=== PATIENT | male | born 1965 | race Caucasian/White ===

== ENCOUNTER 2020-06-12 13:58 | Outpatient (REF) | payer BC, SELFPAY ==
--- NOTE | 2020-06-12 | XR_ITS ---
EXAMINATION: XR CHEST CLINICAL INFORMATION: Hypertension. COMPARISON: None TECHNIQUE: 2 views of the chest were obtained. FINDINGS: The lungs are well-expanded and clear. The heart size and pulmonary vascularity is normal. There is mild spondylosis of dorsal spine. No lytic process. IMPRESSION: Unremarkable chest exam.
== END 2020-06-12 13:59 | disposition home or self-care (01) ==
LOC: HO.HMGCX 13:58
PROVIDERS: PCP Internal Medicine; Visit Provider Internal Medicine
DX: I10 Essential (primary) hypertension (principal); K21.9 Gastro-esophageal reflux disease without esophagitis; F51.04 Psychophysiologic insomnia
CPT/HCPCS: 71046

== ENCOUNTER 2020-06-13 06:55 | Outpatient (REF) | payer BC, SELFPAY ==
[2020-06-13 11:19] LABS: MANUAL DIFF FLAG NO
[2020-06-13 11:37] LABS: Basophils Percent Auto 0.9 % (0-2); Eosinophils Absolute Auto 0.2 X10*3/uL (0.0-0.4); Eosinophils Percent Auto 4.1 % (0-4); Hematocrit 44.7 % (42-52); Hemoglobin 15.3 g/dl (14.0-18.0); Imm Gran Abs Auto 0.01 X10*3/uL (0.00-0.03); Imm Gran Pct Auto 0.2 % (0.0-0.4); Lymphocytes Absolute Auto 1.6 X10*3/uL (1.2-4.9); Mean Corpuscular HGB Conc 34.2 g/dl (31.0-36.0); Mean Corpuscular Hemoglobin 30.3 pg (27.0-33.0); Mean Corpuscular Volume 88.5 fL (80-98); Mean Platelet Volume 9.7 fL (9.4-12.4); Monocytes Absolute Auto 0.5 X10*3/uL (0.1-1.2); Monocytes Percent Auto 10.6 % (2-11); Neutrophils Absolute Auto 2.1 X10*3/uL (2.0-8.3); Neutrophils Percent Auto 48.2 % (45-73); Platelet Count 263 X10*3/uL (160-400); Red Blood Count 5.05 X10*6/uL (4.60-5.80); Red Cell Distribution Width 12.4 % (11.0-16.0); White Blood Count 4.4 X10*3/uL (4.8-10.8)
[2020-06-13 12:04] LABS: Alanine Aminotransferase 42 U/L (0-40); Albumin Level 4.4 g/dL (3.5-5.0); Alkaline Phosphatase 86 U/L (39-117); Anion Gap 13 (12-20); Aspartate Amino Transferase 30 U/L (5-37); Bilirubin Total 0.6 mg/dL (0.0-1.0); Blood Urea Nitrogen 25 mg/dL (9-16); C Reactive Protein 0.13 mg/dL (< or = 0.50); Calcium 9.3 mg/dL (8.4-10.2); Carbon Dioxide 25 mmol/L (22-29); Chloride 104 mmol/L (96-108); Cholesterol 205 mg/dL; Estimated Glomerular Filt Rate > 60; Glucose Random 98 mg/dL (60-115); HDL Cholesterol 51 mg/dL; LDL Cholesterol Calculated 127 mg/dl; Potassium 4.1 mmol/l (3.3-5.1); Sodium 138 mmol/L (135-145); Triglycerides 138 mg/dL
[2020-06-13 12:13] LABS: Thyroid Stimulating Hormone 2.93 mIU/mL (0.32-4.0)
[2020-06-13 14:08] LABS: Erythrocyte Sedimentation Rate 2 MM/HR (0-15)
== END 2020-06-13 06:56 | disposition home or self-care (01) ==
LOC: HO.HMGCLDS 06:55
PROVIDERS: PCP Internal Medicine; Visit Provider Internal Medicine
DX: K21.9 Gastro-esophageal reflux disease without esophagitis (principal); I10 Essential (primary) hypertension; F51.04 Psychophysiologic insomnia
CPT/HCPCS: 36415; 80053; 80061; 84443; 85025; 85652; 86140

== ENCOUNTER 2020-07-03 10:59 | Outpatient (REF) | payer BC, SELFPAY ==
[2020-07-03 11:48] LABS: COVID-19 Test Negative (Negative)
== END 2020-07-03 11:00 | disposition home or self-care (01) ==
LOC: HO.LAB 10:59
PROVIDERS: Visit Provider Internal Medicine
DX: Z20.828 Contact with and (suspected) exposure to other viral communicable diseases (principal)
CPT/HCPCS: 87635; C9803

== ENCOUNTER 2020-07-10 06:06 | Outpatient (REF) | payer BC, SELFPAY ==
[2020-07-10 06:32] LABS: COVID-19 Test Negative (Negative)
== END 2020-07-10 06:07 | disposition home or self-care (01) ==
LOC: HO.LAB 06:06
PROVIDERS: Visit Provider Internal Medicine
DX: Z20.828 Contact with and (suspected) exposure to other viral communicable diseases (principal)
CPT/HCPCS: 87635; C9803

== ENCOUNTER 2020-10-25 05:58 | Outpatient (REF) | payer BC, SELFPAY ==
[2020-10-25 11:07] LABS: MANUAL DIFF FLAG NO
[2020-10-25 11:22] LABS: Basophils Percent Auto 0.7 % (0-2); Eosinophils Absolute Auto 0.2 X10*3/uL (0.0-0.4); Eosinophils Percent Auto 4.2 % (0-4); Hematocrit 45.9 % (42-52); Hemoglobin 15.7 g/dl (14.0-18.0); Imm Gran Abs Auto 0.01 X10*3/uL (0.00-0.03); Imm Gran Pct Auto 0.2 % (0.0-0.4); Lymphocytes Absolute Auto 1.8 X10*3/uL (1.2-4.9); Lymphocytes Percent Auto 39.9 % (20-40); Mean Corpuscular HGB Conc 34.2 g/dl (31.0-36.0); Mean Corpuscular Hemoglobin 29.8 pg (27.0-33.0); Mean Corpuscular Volume 87.3 fL (80-98); Mean Platelet Volume 9.6 fL (9.4-12.4); Monocytes Absolute Auto 0.5 X10*3/uL (0.1-1.2); Monocytes Percent Auto 10.9 % (2-11); Neutrophils Percent Auto 44.1 % (45-73); Platelet Count 278 X10*3/uL (160-400); Red Blood Count 5.26 X10*6/uL (4.60-5.80); Red Cell Distribution Width 12.5 % (11.0-16.0); White Blood Count 4.5 X10*3/uL (4.8-10.8)
[2020-10-25 11:28] LABS: Glucose Urine UA NEG (NEG); Leukocyte Esterase Urine NEG (NEG); Nitrite Urine NEG (NEG); PH 5.5 (5.0-8.0); Specific Gravity - Urine 1.025 (1.005-1.025); Urine Blood NEG (NEG); Urine Ketones NEG (NEG); Urine Protein NEG (NEG-TRACE)
[2020-10-25 11:36] LABS: Appearance Urine CLEAR; Color Urine YELLOW
[2020-10-25 11:56] LABS: Alanine Aminotransferase 50 U/L (0-40); Albumin Level 4.6 g/dL (3.5-5.0); Alkaline Phosphatase 101 U/L (39-117); Anion Gap 13 (12-20); Aspartate Amino Transferase 38 U/L (5-37); Bilirubin Total 0.7 mg/dL (0.0-1.0); Blood Urea Nitrogen 22 mg/dL (9-16); Calcium 9.7 mg/dL (8.4-10.2); Carbon Dioxide 27 mmol/L (22-29); Chloride 100 mmol/L (96-108); Cholesterol 215 mg/dL; Estimated Glomerular Filt Rate > 60; Glucose Fasting 96 mg/dL (60-99); HDL Cholesterol 49 mg/dL; LDL Cholesterol Calculated 129 mg/dl; Sodium 136 mmol/L (135-145); Total Protein 7.2 g/dL (6.5-8.0); Triglycerides 189 mg/dL
[2020-10-25 12:20] LABS: Prostate Specific Antigen 1.24 ng/mL (<0.05-4.0); Thyroid Stimulating Hormone 3.49 uIU/mL (0.32-4.0); Vitamin D 25-OH Total 21.8 ng/mL (>30)
== END 2020-10-25 05:59 | disposition home or self-care (01) ==
LOC: HO.HMGCLDS 05:58
PROVIDERS: PCP Internal Medicine; Visit Provider Internal Medicine
DX: Z00.00 Encounter for general adult medical examination without abnormal findings (principal); Z12.5 Encounter for screening for malignant neoplasm of prostate; K21.9 Gastro-esophageal reflux disease without esophagitis; I10 Essential (primary) hypertension
CPT/HCPCS: 36415; 80053; 80061; 81003; 82306; 84153; 84443; 85025

== ENCOUNTER → 2021-02-05 08:23 | Outpatient (BNVA) | payer OTHER, SELFPAY | PROVIDERS: PCP Internal Medicine; Visit Provider Physician Assistant Medical | DX: S33.9XXA Sprain of unspecified parts of lumbar spine and pelvis, initial encounter (principal); X50.0XXA Overexertion from strenuous movement or load, initial encounter | CPT/HCPCS: 99203 ==

== ENCOUNTER → 2021-02-09 07:46 | Outpatient (BNVA) | payer OTHER, SELFPAY | PROVIDERS: PCP Internal Medicine; Visit Provider Physician Assistant Medical | DX: S33.9XXA Sprain of unspecified parts of lumbar spine and pelvis, initial encounter (principal); X58.XXXA Exposure to other specified factors, initial encounter | CPT/HCPCS: 99213 ==

== ENCOUNTER → 2021-02-15 08:01 | Outpatient (BNVA) | payer OTHER, SELFPAY | PROVIDERS: PCP Internal Medicine; Visit Provider Physician Assistant Medical | DX: S33.5XXA Sprain of ligaments of lumbar spine, initial encounter (principal); X58.XXXA Exposure to other specified factors, initial encounter | CPT/HCPCS: 72110; 99214 ==

== ENCOUNTER → 2021-03-12 15:15 | Outpatient (BNVA) | payer SELFPAY | PROVIDERS: PCP Internal Medicine | DX: Z76.89 Persons encountering health services in other specified circumstances (principal) ==

== ENCOUNTER 2021-11-07 06:56 | Outpatient (REF) | payer BC, SELFPAY ==
[2021-11-07 11:18] LABS: MANUAL DIFF FLAG NO
[2021-11-07 11:42] LABS: Basophils Percent Auto 0.6 % (0-2); Eosinophils Absolute Auto 0.2 X10*3/uL (0.0-0.4); Eosinophils Percent Auto 4.1 % (0-4); Hemoglobin 15.4 g/dl (14.0-18.0); Imm Gran Abs Auto 0.01 X10*3/uL (0.00-0.03); Imm Gran Pct Auto 0.2 % (0.0-0.4); Lymphocytes Absolute Auto 1.6 X10*3/uL (1.2-4.9); Lymphocytes Percent Auto 34.7 % (20-40); Mean Corpuscular HGB Conc 34.2 g/dl (31.0-36.0); Mean Corpuscular Hemoglobin 29.8 pg (27.0-33.0); Mean Platelet Volume 9.1 fL (9.4-12.4); Monocytes Absolute Auto 0.5 X10*3/uL (0.1-1.2); Monocytes Percent Auto 11.2 % (2-11); Neutrophils Absolute Auto 2.3 x10*3/uL (2.0-8.3); Neutrophils Percent Auto 49.2 % (45-73); Platelet Count 336 X10*3/uL (160-400); Red Blood Count 5.17 X10*6/uL (4.60-5.80); Red Cell Distribution Width 12.6 % (11.0-16.0); White Blood Count 4.6 X10*3/uL (4.8-10.8)
[2021-11-07 12:10] LABS: Alanine Aminotransferase 52 U/L (0-40); Albumin Level 4.4 g/dL (3.5-5.0); Alkaline Phosphatase 92 U/L (39-117); Anion Gap 12 (12-20); Aspartate Amino Transferase 33 U/L (5-37); Bilirubin Total 0.5 mg/dL (0.0-1.0); Blood Urea Nitrogen 12 mg/dL (9-16); Calcium 10.2 mg/dL (8.4-10.2); Carbon Dioxide 27 mmol/L (22-29); Chloride 104 mmol/L (96-108); Cholesterol 195 mg/dL; Estimated Glomerular Filt Rate > 60; Glucose Fasting 104 mg/dL (60-99); HDL Cholesterol 46 mg/dL; LDL Cholesterol Calculated 122 mg/dl; Potassium 4.3 mmol/L (3.3-5.1); Sodium 139 mmol/L (135-145); Total Protein 7.1 g/dL (6.5-8.0); Triglycerides 138 mg/dL
[2021-11-07 12:19] LABS: PSA,Total (Free>4and<10) 1.47 ng/mL (0.00-4.00); Thyroid Stimulating Hormone 1.94 uIU/mL (0.32-4.0); Vitamin D 25-OH Total 20.6 ng/mL (>30)
== END 2021-11-07 06:57 | disposition home or self-care (01) ==
LOC: HO.HMGCLDS 06:56
PROVIDERS: Visit Provider Internal Medicine
DX: Z00.00 Encounter for general adult medical examination without abnormal findings (principal); Z12.5 Encounter for screening for malignant neoplasm of prostate; I10 Essential (primary) hypertension; K21.9 Gastro-esophageal reflux disease without esophagitis; F51.04 Psychophysiologic insomnia
CPT/HCPCS: 36415; 80053; 80061; 82306; 84153; 84443; 85025

== ENCOUNTER 2022-01-30 11:35 | Outpatient (REF) | payer BC, SELFPAY ==
[2022-01-30 14:00] LABS: MANUAL DIFF FLAG NO
[2022-01-30 14:25] LABS: Basophils Percent Auto 0.2 % (0-2); Eosinophils Absolute Auto 0.2 X10*3/uL (0.0-0.4); Eosinophils Percent Auto 2.4 % (0-4); Hematocrit 43.7 % (42.0-52.0); Hemoglobin 15.5 g/dl (14.0-18.0); Imm Gran Abs Auto 0.01 X10*3/uL (0.00-0.03); Imm Gran Pct Auto 0.2 % (0.0-0.4); Lymphocytes Absolute Auto 1.4 X10*3/uL (1.2-4.9); Mean Corpuscular HGB Conc 35.5 g/dl (31.0-36.0); Mean Corpuscular Hemoglobin 30.2 pg (27.0-33.0); Mean Corpuscular Volume 85.2 fL (80.0-98.0); Mean Platelet Volume 9.4 fL (9.4-12.4); Monocytes Absolute Auto 0.8 X10*3/uL (0.1-1.2); Monocytes Percent Auto 12.2 % (2-11); Neutrophils Absolute Auto 3.9 x10*3/uL (2.0-8.3); Platelet Count 292 X10*3/uL (160-400); Red Blood Count 5.13 X10*6/uL (4.60-5.80); Red Cell Distribution Width 12.4 % (11.0-16.0); White Blood Count 6.2 X10*3/uL (4.8-10.8)
[2022-01-30 14:28] LABS: Alanine Aminotransferase 40 U/L (0-40); Albumin Level 4.4 g/dL (3.5-5.0); Alkaline Phosphatase 109 U/L (39-117); Anion Gap 17 (12-20); Aspartate Amino Transferase 31 U/L (5-37); Bilirubin Total 0.8 mg/dL (0.0-1.0); Blood Urea Nitrogen 13 mg/dL (9-16); C Reactive Protein 9.56 mg/dL (< or = 0.50); Calcium 9.3 mg/dL (8.4-10.2); Carbon Dioxide 25 mmol/L (22-29); Chloride 99 mmol/L (96-108); Estimated Glomerular Filt Rate > 60; Glucose Random 88 mg/dL (60-115); Potassium 4.5 mmol/L (3.3-5.1); Sodium 136 mmol/L (135-145); Total Protein 7.2 g/dL (6.5-8.0)
[2022-01-30 14:49] LABS: Thyroid Stimulating Hormone 5.62 uIU/mL (0.32-4.0)
[2022-01-30 15:02] LABS: Erythrocyte Sedimentation Rate 16 MM/HR (0-15)
== END 2022-01-30 11:36 | disposition home or self-care (01) ==
LOC: HO.HMGCLDS 11:35
PROVIDERS: PCP Internal Medicine; Visit Provider Internal Medicine
DX: K52.9 Noninfective gastroenteritis and colitis, unspecified (principal)
CPT/HCPCS: 36415; 80053; 84443; 85025; 85652; 86140

== ENCOUNTER 2022-11-15 06:19 | Outpatient (REF) | payer BC, SELFPAY ==
[2022-11-15 11:13] LABS: MANUAL DIFF FLAG NO
[2022-11-15 11:23] LABS: Eosinophils Absolute Auto 0.2 X10*3/uL (0.0-0.4); Eosinophils Percent Auto 4.4 % (0-4); Hematocrit 44.7 % (42.0-52.0); Hemoglobin 15.5 g/dl (14.0-18.0); Imm Gran Abs Auto 0.01 X10*3/uL (0.00-0.03); Imm Gran Pct Auto 0.3 % (0.0-0.4); Lymphocytes Absolute Auto 1.5 X10*3/uL (1.2-4.9); Lymphocytes Percent Auto 38.1 % (20-40); Mean Corpuscular HGB Conc 34.7 g/dl (31.0-36.0); Mean Corpuscular Hemoglobin 30.3 pg (27.0-33.0); Mean Corpuscular Volume 87.3 fL (80.0-98.0); Monocytes Absolute Auto 0.5 X10*3/uL (0.1-1.2); Monocytes Percent Auto 11.6 % (2-11); Neutrophils Absolute Auto 1.7 x10*3/uL (2.0-8.3); Neutrophils Percent Auto 44.6 % (45-73); Platelet Count 254 X10*3/uL (160-400); Red Blood Count 5.12 X10*6/uL (4.60-5.80); Red Cell Distribution Width 12.8 % (11.0-16.0); White Blood Count 3.9 X10*3/uL (4.8-10.8)
[2022-11-15 11:39] LABS: Appearance Urine Turbid; Color Urine Yellow; Glucose Urine UA Negative (Negative); Leukocyte Esterase Urine Negative (Negative); Nitrite Urine Negative (Negative); PH 5.5 (5.0-9.0); Specific Gravity - Urine 1.025 (1.005-1.025); Urine Blood Negative (Negative); Urine Ketones Negative (Negative); Urine Protein Trace mg/dL (Neg-Trace)
[2022-11-15 11:45] LABS: Bacteria Urine None Seen (None Seen); Hyaline Casts Urine 0-2 /LPF (0-2); RBC Urine 0-2 /HPF (0-2); Squamous Epithelial Cell Urine 0-2 /HPF (0-2); WBC Urine 0-5 /HPF (0-5)
[2022-11-15 12:02] LABS: Erythrocyte Sedimentation Rate 2 MM/HR (0-15)
[2022-11-15 12:05] LABS: Alanine Aminotransferase 62 U/L (0-40); Albumin Level 4.3 g/dL (3.5-5.0); Alkaline Phosphatase 89 U/L (39-117); Anion Gap 13 (12-20); Aspartate Amino Transferase 38 U/L (5-37); Blood Urea Nitrogen 19 mg/dL (9-16); Calcium 9.2 mg/dL (8.4-10.2); Carbon Dioxide 25 mmol/L (22-29); Chloride 106 mmol/L (96-108); Cholesterol 229 mg/dL; Estimated Glomerular Filt Rate > 60; Glucose Fasting 104 mg/dL (60-99); HDL Cholesterol 48 mg/dL; LDL Cholesterol Calculated 156 mg/dl; Sodium 140 mmol/L (135-145); Thyroid Stimulating Hormone 3.24 uIU/mL (0.32-4.0); Total Protein 6.6 g/dL (6.5-8.0); Triglycerides 129 mg/dL; Vitamin D 25-OH Total 23.1 ng/mL (>30)
== END 2022-11-15 06:20 | disposition home or self-care (01) ==
LOC: HO.HMGCLDS 06:19
PROVIDERS: PCP Internal Medicine; Visit Provider Internal Medicine
DX: Z00.00 Encounter for general adult medical examination without abnormal findings (principal); I10 Essential (primary) hypertension; K21.9 Gastro-esophageal reflux disease without esophagitis; F51.04 Psychophysiologic insomnia; E55.9 Vitamin D deficiency, unspecified
CPT/HCPCS: 36415; 80053; 80061; 81001; 82306; 84443; 85025; 85652; 86140

== ENCOUNTER 2023-07-22 13:26 | Outpatient (REF) | payer BC, SELFPAY ==
[2023-07-22 15:58] LABS: Appearance Urine Clear; Color Urine Yellow; Glucose Urine UA Negative (Negative); Leukocyte Esterase Urine Negative (Negative); Nitrite Urine Negative (Negative); PH 6.5 (5.0-9.0); UMIC TRIGGER UA YES; Urine Blood Moderate (2+) (Negative); Urine Ketones Negative (Negative); Urine Protein Negative (Neg-Trace)
[2023-07-22 16:01] LABS: Bacteria Urine None Seen (None Seen); Hyaline Casts Urine 0-2 /LPF (0-2); RBC Urine >20 /HPF (0-2); Squamous Epithelial Cell Urine 0-2 /HPF (0-2); WBC Urine 0-5 /HPF (0-5)
== END 2023-07-22 13:27 | disposition home or self-care (01) ==
LOC: HO.HMGCLDS 13:26
PROVIDERS: PCP Internal Medicine; Visit Provider Internal Medicine
DX: R31.0 Gross hematuria (principal)
CPT/HCPCS: 81001; 87086

== ENCOUNTER 2023-07-24 09:24 | Emergency (ER) | payer BC, SELFPAY ==
--- NOTE | ~2023-07-24 | CT_ITS ---
EXAMINATION: CT ABDOMEN AND PELVIS WITHOUT CONTRAST CLINICAL INFORMATION: Flank pain COMPARISON: None available TECHNIQUE: Multidetector volumetric imaging was performed from the superior aspect of the liver through the pubic symphysis. Sagittal and coronal reformatted images were obtained on the technologist's workstation. This CT examination was performed using dose optimization techniques as appropriate, variously including the following: *Automated exposure control *Adjustment of mA and/or kV according to patient size (this includes techniques or standardized protocols for targeted exams where dose is matched to indication/reason for exam; i.e. extremities or head) *Use of iterative reconstruction technique DLP: 675 mGy-cm FINDINGS: LUNG BASES: Minimal subpleural linear atelectasis is evident at the left base. LIVER, GALLBLADDER, AND BILIARY TREE: The liver is normal in size, shape, and attenuation. No focal hepatic lesion or biliary ductal dilatation is present. The gallbladder is unremarkable with no evidence of radiopaque gallstones, gallbladder wall thickening, or obvious pericholecystic inflammatory changes. PANCREAS: Unremarkable. SPLEEN: Unremarkable. ADRENAL GLANDS: Unremarkable. KIDNEYS AND URETERS: Mild left hydroureter process is evident to the level of a 9 x 4 mm ovoid calculus in the left proximal ureter, just below the left ureteropelvic junction. An ovoid 4 x 3 mm calculus is evident within the left renal lower pole collecting system. There is a 2.8 cm round low density mass in the upper pole the right kidney, which appears to contain some internal structure on this unenhanced study and does does not definitively meet criteria for a simple cyst. BLADDER: Unremarkable. GASTROINTESTINAL TRACT: Considerable diverticulosis is noted in the sigmoid, but there is no evidence of diverticulitis. The small bowel and appendix images normally. There is a small sliding hiatal hernia. ABDOMINAL WALL: Small fat-containing umbilical hernia. LYMPH NODES: Normal. VASCULAR: Unremarkable. PELVIC VISCERA: The prostate gland is mildly enlarged, indenting the bladder base. OSSEOUS STRUCTURES: Degenerative disc disease is present at L5-S1. CT/CT abdomen pelvis wo IV con IMPRESSION: 1. Mild left hydronephrosis to the level of a 9 x 4 mm left proximal ureteral calculus. 2. Additional nonobstructing 4 x 3 mm left renal lower pole calculus. 3. Right renal upper pole low density lesion, not definitely a simple cyst. Suggest correlation with renal ultrasound for better assessment of the internal architecture. Fleischner guidelines were followed.
[2023-07-24 09:30] VITALS: BP 155/100; BP 156/88; PULSE 60; PULSE 63; RESP 16; TEMP 36.6; O2SAT 94; O2SAT 98; BMI 32.3
[2023-07-24 09:45] LABS: MANUAL DIFF FLAG NO
[2023-07-24 09:46] LABS: Basophils Percent Auto 0.5 % (0-2); Eosinophils Absolute Auto 0.1 X10*3/uL (0.0-0.4); Eosinophils Percent Auto 2.2 % (0-4); Hematocrit 43.8 % (42.0-52.0); Hemoglobin 15.5 g/dl (14.0-18.0); Imm Gran Abs Auto 0.01 X10*3/uL (0.00-0.03); Imm Gran Pct Auto 0.2 % (0.0-0.4); Lymphocytes Absolute Auto 1.7 X10*3/uL (1.2-4.9); Lymphocytes Percent Auto 31.5 % (20-40); Mean Corpuscular HGB Conc 35.4 g/dl (31.0-36.0); Mean Corpuscular Hemoglobin 30.3 pg (27.0-33.0); Mean Corpuscular Volume 85.5 fL (80.0-98.0); Mean Platelet Volume 9.2 fL (9.4-12.4); Monocytes Absolute Auto 0.6 X10*3/uL (0.1-1.2); Monocytes Percent Auto 10.1 % (2-11); Neutrophils Absolute Auto 3.1 x10*3/uL (2.0-8.3); Neutrophils Percent Auto 55.5 % (45-73); Platelet Count 269 X10*3/uL (160-400); Red Blood Count 5.12 X10*6/uL (4.60-5.80); Red Cell Distribution Width 12.5 % (11.0-16.0); White Blood Count 5.5 X10*3/uL (4.8-10.8)
--- NOTE | 2023-07-24 10:05 | ED_ITS ---
HPI - Male Genitourinary General Chief complaint: Urogenital-Male Stated complaint: Blood in urine Time Seen by Provider: 07/24/23 10:05 Source: patient and EMS Mode of arrival: EMS Limitations: no limitations History of Present Illness HPI Narrative: Patient is a 57 year old assigned male at with no reported medical history presenting to the emergency department today with left flank pain. Patient states that over the last 5 days, he has had left sided flank pain with nausea and tea colored urine. Patient denies any dizziness, lightheadedness, abdominal pain, vomiting, fever, chills, blurry vision, double vision, loss of vision, chest pain, difficulty breathing, shortness of breath, back pain, night sweats, pain with urination, increased urinary frequency, increased urinary urgency, blood in his urine or stool, syncope or a near syncopal episode, recent trauma or falls, bowel incontinence, bladder incontinence, bowel retention, bladder retention, or any other complaints at this time. Onset (ago): day(s) (5) Severity: mild Severity scale (1-10): 4 Quality: aching Relieving factors: none Exacerbating factors: none Related Data Previous Rx's Medication Instructions Recorded naproxen 500 mg tablet 500 mg PO BID 7 days #14 tabs 07/24/23 ondansetron 4 mg disintegrating 4 mg PO Q8H 3 days #9 tabs 07/24/23 tablet tamsulosin 0.4 mg capsule 0.4 mg PO DAILY #7 caps 07/24/23 Allergies Allergy/AdvReac Type Severity Reaction Status Date / Time No Known Allergies Allergy Unverified 05/11/20 14:45 [No Known Allergies*] Review of Systems 2 Constitutional: Constitutional: Reports no additional constitutional complaints, Denies chills, Denies fever(s) and Denies night sweats Eyes: Eyes: Reports no additional eye complaints, Denies blurry vision, Denies change in vision, Denies diplopia, Denies eye discharge, Denies loss of vision and Denies eye pain ENT: Denies dizziness Cardiovascular: Cardiovascular: Reports no additional cardiovascular complaints, Denies chest pain, Denies lightheadedness, Denies Loss of Consciousness and Denies dyspnea Respiratory: Respiratory: Reports no additional respiratory complaints and Denies dyspnea Gastrointestinal: Gastrointestinal: Reports no additional gastrointestinal complaints, Denies abdominal pain, Denies melena, Denies hematochezia, Denies change in bowel habits, Denies change in stool character, Reports nausea and Denies vomiting Genitourinary: Genitourinary: Reports no additional male genitourinary complaints, Denies hematuria, Denies oliguria, Denies difficulty urinating, Denies dysuria, Denies urinary frequency, Denies urinary hesitancy, Denies urinary incontinence and Denies urinary urgency Comments: left flank pain Musculoskeletal: Musculoskeletal: Reports no additional musculoskeletal complaints, Denies numbness and Denies tingling Neurologic: Denies dizziness, Denies loss of vision, Denies numbness and Denies tingling Psychiatric: Psychiatric: Reports no additional psychiatric complaints Endocrine: Endocrine: Reports no additional endocrine complaints Hematologic/Lymphatic: Hematologic/Lymphatic: Reports no additional hematologic/lymphatic complaints Allergic/Immunologic: Allergic/Immunologic: Reports no additional allergic/immunologic complaints PMFSH Past Medical History Attestation statement: The following information was validated with the patient. Source: old records reviewed and nursing notes reviewed Medical History HTN (hypertension) Physical Exam 2 Vital Signs: Vital Signs: Last Vital Signs Temp 97.6 F 07/24/23 12:03 Pulse 70 07/24/23 12:03 Resp 14 07/24/23 12:03 BP 129/81 07/24/23 12:03 Pulse Ox 99 07/24/23 12:03 O2 Del Method Room Air 07/24/23 12:03 BMI result Body Mass Index 32.3 Const: General: cooperative, no acute distress, alert and awake Nutritional Appearance: well nourished Orientation/consciousness: patient oriented x3 Limitations: no limitations HEENT: Head: Yes normal to inspection and Yes atraumatic Ears: hearing grossly normal bilaterally and external ears normal General nose exam: Normal external nose present, no nasal discharge noted and no epistaxis Face and sinus: Yes normal facial exam, No abrasion and No laceration Mouth: Normal oral and palatal mucosa present, no drooling and no muffled voice Eyes: General: appearance normal, both eyes and all related structures P eriorbital: periorbital findings normal Eyelids: Yes eyelids normal C onjunctivae: conjunctivae normal Pupils: Equal, round and reactive pupils present EOM: EOMs intact bilaterally Neck: Neck: Yes normal visual inspection, Yes full ROM and Yes no lymphadenopathy Chest: Chest palpation & inspection: normal inspection of the chest Resp: Effort & Inspection: normal respiratory effort and able to speak in complete sentences GI: Inspection: Yes normal to inspection : General: Yes CVA tenderness on the left Back/Spine/Pelvis: Back: CVA tenderness Neuro: General: patient oriented x3 and moves all extremities Cranial nerves: Yes Equal, round and reactive pupils present Cognition (Neuro): n ormal cognition Motor exam (neuro): 5/5 motor strength present throughout Sensory Exam: Normal double simultaneous stimulation for sensation C oordination: [id number] test normal Extrem: General: Yes normal to inspection, Yes full ROM and Yes capillary refill normal Psych: Appearance: grossly normal Mental Status: mental status grossly normal Affect: normal affect Attitude: cooperative Thought process: N ormal thought process present Thought content: Normal thought content present Insight: Good insight present (Psych) Medications Administered Discontinued Medications Generic Name Dose Route Start Last Admin Trade Name Freq PRN Reason Stop Dose Admin Sodium Chloride 1,000 mls @ 999 mls/hr 07/24/23 10:15 07/24/23 11:14 Ns IV 07/24/23 11:15 Infused .Q1H1M MEG Infusion Medical Decision Making Medical Decision Making MDM Narrative: Patient is a 57 year old assigned male at with no reported medical history presenting to the emergency department today with left flank pain. Patient's physical exam was as noted in the physical exam portion of this note. Patient's blood work was unremarkable. Patient's urine showed no acute process. Patient's CT abdomen/pelvis showed mild left hydronephrosis secondary to a 9 x 4mm left proximal ureteral calculus and a right renal upper pole low density lesion that needs further out patient imaging. I spoke to the urologist who recommended the patient discharge and follow up in the office tomorrow at 10:00 am. I explained my physical exam findings as well as all test results to the patient. I answered all questions asked by the patient. I stressed the importance of the patient taking his medication as prescribed. I stressed the importance of the patient following up with his primary care provider and at the urologist office tomorrow at 10:00 am. I stressed the importance of the patient returning to the emergency department immediately if his symptoms were to worsen or if he were to develop any dizziness, shortness of breath, difficulty breathing, chest pain, blurry vision, loss of vision, nausea, vomiting, abdominal pain, fever, chills, back pain, or any other complaints. Patient verbalized agreement and understanding with this treatment plan and discharge. Differential Diagnosis Differential Diagnoses: The differential diagnosis associated with the presentation includes Kidney stone UTI Flank pain Admission/Observation Consideration of admission/observation: Escalation of care including admission/observation considered Patient would have been admitted to the hospital had his work up had any findings where hospital admission was appropriate and his clinical presentation warranted hospital admission. Consult Healthcare Provider Management of the patient was discussed with: Storage Consultant (spoke to the urologist as noted in the MDM Rationale portion of this note.) Lab Data [facility] Lab Attestation statement: I reviewed the patient's lab results. My interpretation of these studies and their corresponding values is that they are grossly normal. 07/24/23 09:38 07/24/23 09:38 Labs: Lab Results 07/24/23 07/24/23 07/24/23 Range/Units 09:38 10:42 11:33 WBC 5.5 (4.8-10.8) X10*3/uL RBC 5.12 (4.60-5.80) X10*6/uL Hgb 15.5 (14.0-18.0) g/dl Hct 43.8 (42.0-52.0) % MCV 85.5 (80.0-98.0) fL MCH 30.3 (27.0-33.0) pg MCHC 35.4 (31.0-36.0) g/dl RDW 12.5 (11.0-16.0) % Plt Count 269 (160-400) X10*3/uL MPV 9.2 L (9.4-12.4) fL Immature Gran % (Auto) 0.2 (0.0-0.4) % Neut % (Auto) 55.5 (45-73) % Lymph % (Auto) 31.5 (20-40) % [place] % (Auto) 10.1 (2-11) % Eos % (Auto) 2.2 (0-4) % Baso % (Auto) 0.5 (0-2) % Lymph # (Auto) 1.7 (1.2-4.9) X10*3/uL [place] # (Auto) 0.6 (0.1-1.2) X10*3/uL Eos # (Auto) 0.1 (0.0-0.4) X10*3/uL Baso # (Auto) 0.0 (0.0-0.2) X10*3/uL Abs Immat Gran (auto) 0.01 (0.00-0.03) X10*3/uL Absolute Neuts (auto) 3.1 (2.0-8.3) x10*3/uL Absolute Nucleated RBC 0.000 (0.0-0.012) X10*3/uL Nucleated RBC % (auto) 0.0 (0.0-0.2) /100WBC Sodium 135 (135-145) mmol/L Potassium 4.1 (3.3-5.1) mmol/L Chloride 105 (96-108) mmol/L Carbon Dioxide 24 (22-29) mmol/L Anion Gap 10 L (12-20) BUN 19 H (9-16) mg/dL Creatinine 0.88 (0.5-1.4) mg/dL Estim Creat Clear Calc 99.6 Estimated GFR > 60 Random Glucose 155 H (60-115) mg/dL Calcium 9.5 (8.4-10.2) mg/dL Magnesium 2.0 (1.6-2.6) mg/dL Total Bilirubin 0.8 (0.0-1.0) mg/dL AST 34 (5-37) U/L ALT 44 H (0-40) U/L Alkaline Phosphatase 98 (39-117) U/L Total Protein 7.2 (6.5-8.0) g/dL Albumin 4.4 (3.5-5.0) g/dL Urine Color Yellow Urine Appearance Cloudy Urine pH 5.5 (5.0-9.0) Ur Specific [place] 1.020 (1.005-1.025) Urine Protein 30 (1+) H (Neg-Trace) mg/dL Urine Glucose (UA) Negative (Negative) mg/dL Urine Ketones Trace (Negative) mg/dL Urine Blood Large (3+) H (Negative) Urine Nitrite Negative (Negative) Ur Leukocyte Esterase Trace H (Negative) Urine RBC >20 H (0-2) /HPF Urine WBC 0-5 (0-5) /HPF Ur Squamous Epith Cells 0-2 (0-2) /HPF Urine Bacteria None Seen (None Seen) Hyaline Casts 0-2 (0-2) /LPF Influenza Type A (PCR) NEGATIVE (Negative) Influenza Type B (PCR) NEGATIVE (Negative) RSV RNA Qual (PCR) NEGATIVE (Negative) SARS-CoV-2 RNA (RT-PCR) NEGATIVE (Negative) Independent Interpretation I performed an independent interpretation of an: CT Scan Interpretation: My interpretation is in agreement with the radiologist's impression of this imaging study. - EXAMINATION: CT ABDOMEN AND PELVIS WITHOUT CONTRAST CLINICAL INFORMATION: Flank pain COMPARISON: None available TECHNIQUE: Multidetector volumetric imaging was performed from the superior aspect of the liver through the pubic symphysis. Sagittal and coronal reformatted images were obtained on the technologist's workstation. This CT examination was performed using dose optimization techniques as appropriate, variously including the following: *Automated exposure control *Adjustment of mA and/or kV according to patient size (this includes techniques or standardized protocols for targeted exams where dose is matched to indication/reason for exam; i.e. extremities or head) *Use of iterative reconstruction technique DLP: 675 mGy-cm FINDINGS: LUNG BASES: Minimal subpleural linear atelectasis is evident at the left base. LIVER, GALLBLADDER, AND BILIARY TREE: The liver is normal in size, shape, and attenuation. No focal hepatic lesion or biliary ductal dilatation is present. The gallbladder is unremarkable with no evidence of radiopaque gallstones, gallbladder wall thickening, or obvious pericholecystic inflammatory changes. PANCREAS: Unremarkable. SPLEEN: Unremarkable. ADRENAL GLANDS: Unremarkable. KIDNEYS AND URETERS: Mild left hydroureter process is evident to the level of a 9 x 4 mm ovoid calculus in the left proximal ureter, just below the left ureteropelvic junction. An ovoid 4 x 3 mm calculus is evident within the left renal lower pole collecting system. There is a 2.8 cm round low density mass in the upper pole the right kidney, which appears to contain some internal structure on this unenhanced study and does does not definitively meet criteria for a simple cyst. BLADDER: Unremarkable. GASTROINTESTINAL TRACT: Considerable diverticulosis is noted in the sigmoid, but there is no evidence of diverticulitis. The small bowel and appendix images normally. There is a small sliding hiatal hernia. ABDOMINAL WALL: Small fat-containing umbilical hernia. LYMPH NODES: Normal. VASCULAR: Unremarkable. PELVIC VISCERA: The prostate gland is mildly enlarged, indenting the bladder base. OSSEOUS STRUCTURES: Degenerative disc disease is present at L5-S1. CT/CT abdomen pelvis wo IV con IMPRESSION: 1. Mild left hydronephrosis to the level of a 9 x 4 mm left proximal ureteral calculus. 2. Additional nonobstructing 4 x 3 mm left renal lower pole calculus. 3. Right renal upper pole low density lesion, not definitely a simple cyst. Suggest correlation with renal ultrasound for better assessment of the internal architecture. Fleischner guidelines were followed. Dictated By: Yunior Delvalle MD Signed By: Electronically signed by Yunior Delvalle MD 07/24/23 2095 Radiology Impression Discussion of test interpretation with radiology: I have reviewed the radiologist's reading. Independent Historian Clinical information obtained from an independent historian. History obtained from or confirmed by: EMS (EMS provided additional history and confirmed the history provided by the patient.) Prescription Management I considered prescription management with: Pain Medication (patient prescribed pain medication.) Critical Care Time Critical Care Time Critical Care Time: Yes Total Critical Care Time: 55 Attestation: I spent 55 minutes of Critical Care Time with this patient. This does not include time spent on separately reported billable procedures. Discharge Plan Discharge Clinical Impression: Kidney calculi Patient Disposition: Home, Self-Care Instructions: Kidney Stones (ED) Additional Instructions: Your CT scan showed a 9 x 4 mm left kidney stone. Additionally, there is a low density lesion in the right upper kidney that needs additional imaging. This can be done outpatient. Follow up with your primary care provider. Follow up with the Urologist tomorrow at 10:00 AM. Return to the emergency department immediately if your symptoms worsen or if you develop any dizziness, shortness of breath, difficulty breathing, chest pain, blurry vision, loss of vision, nausea, vomiting, abdominal pain, fever, chills, back pain, or any other complaints. Prescriptions: New tamsulosin 0.4 mg capsule 0.4 mg PO DAILY Qty: 7 0RF ondansetron 4 mg tablet,disintegrating 4 mg PO Q8H 3 Days Qty: 9 0RF naproxen 500 mg tablet 500 mg PO BID 7 Days Qty: 14 0RF Referrals: [facility] [Provider Group] (Call to establish and follow up with a urologist. You are scheduled for a 10:[address] Bertrand on 07/25/2023. Please call the office to confirm this appointment.) Cortes Hernandez DO [Primary Care Provider] - Interventions: ED Discharge Assessment Last Done: 07/24/23 12:49 Discharge Date/Time: 07/24/23 12:49 Print Language: [place]
[2023-07-24 10:06] LABS: Alanine Aminotransferase 44 U/L (0-40); Albumin Level 4.4 g/dL (3.5-5.0); Alkaline Phosphatase 98 U/L (39-117); Anion Gap 10 (12-20); Aspartate Amino Transferase 34 U/L (5-37); Bilirubin Total 0.8 mg/dL (0.0-1.0); Blood Urea Nitrogen 19 mg/dL (9-16); Calcium 9.5 mg/dL (8.4-10.2); Carbon Dioxide 24 mmol/L (22-29); Chloride 105 mmol/L (96-108); Creatinine Clr Calc Pharmacy 99.6; Estimated Glomerular Filt Rate > 60; Glucose Random 155 mg/dL (60-115); Potassium 4.1 mmol/L (3.3-5.1); Sodium 135 mmol/L (135-145); Total Protein 7.2 g/dL (6.5-8.0)
[2023-07-24] MEDS: 0.9 % Sodium Chloride 1,000 ML 999 ML IV (10:17)
[2023-07-24 11:32] LABS: Influenza A PCR NEGATIVE (Negative); Influenza B PCR NEGATIVE (Negative); Resp Syncy Virus RNA Qual PCR NEGATIVE (Negative); SARS COV2 PCR INHOUSE NEGATIVE (Negative)
[2023-07-24 11:46] LABS: Appearance Urine Cloudy; Color Urine Yellow; Glucose Urine UA Negative (Negative); Leukocyte Esterase Urine Trace (Negative); Nitrite Urine Negative (Negative); PH 5.5 (5.0-9.0); UMIC TRIGGER UACC YES; Urine Blood Large (3+) (Negative); Urine Ketones Trace mg/dL (Negative); Urine Protein 30 (1+) mg/dL (Neg-Trace)
[2023-07-24 11:53] LABS: Bacteria Urine None Seen (None Seen); Hyaline Casts Urine 0-2 /LPF (0-2); RBC Urine >20 /HPF (0-2); Squamous Epithelial Cell Urine 0-2 /HPF (0-2); WBC Urine 0-5 /HPF (0-5)
[2023-07-24 12:03] VITALS: BP 129/81; PULSE 70; RESP 14; TEMP 36.4; O2SAT 99
== END 2023-07-24 12:49 | disposition home or self-care (01) ==
PROVIDERS: Physician Assistant Medical; Emergency Provider Emergency Medicine Emergency Medical Services; PCP Internal Medicine
DX: N20.0 Calculus of kidney (principal); R31.9 Hematuria, unspecified; R10.9 Unspecified abdominal pain; Z20.822 Contact with and (suspected) exposure to COVID-19; Z20.828 Contact with and (suspected) exposure to other viral communicable diseases; Z79.899 Other long term (current) drug therapy
CPT/HCPCS: 0241U; 36415; 74176; 80053; 81001; 83735; 85025; 96360; 99284

== ENCOUNTER 2023-07-25 09:45 | Outpatient (AMB) | payer BC, SELFPAY ==
--- NOTE | 2023-07-25 10:09 | A.OFFVIS_ITS ---
Intake Intake Visit Reasons: ED-Nephrolithiasis Intake Note: NEW Patient presents today to established treatment for Nephrolithiasis: Patient was in the ED yesterday. Meds- Naproxen & Tamsulosin Allergies to Antibiotic- No Known Allergies Blood Thinner- None Production Superintendent Required: No Accompanied by: Significant Other Allergies No Known Allergies [No Known Allergies*] Allergy (Verified 07/25/23 10:31) Medication List - Last Reconciled 07/25/23 by Taryn Bertrand MD hydromorphone (Dilaudid) 2 mg PO Q6H PRN naproxen 500 mg PO BID 7 days ondansetron 4 mg PO Q8H 3 days tamsulosin 0.4 mg PO DAILY HPI HPI Comments History of Present Illness Details Ede is a 57-year-old male who presents today to the office for a follow-up . 07/25/2023? He was seen ED on 07/24/2023 with left flank pain.? I reviewed the CAT scan results from 07/24/2023 revealed 9 mm left proximal ureteral stone with mild hydronephrosis; 4 mm non obstructing stone in the lower pole of the left kidney and a 2.8 cm low density lesion in the upper pole of the right kidney which is indeterminate. He denies any hematuria at this time. 07/25/2023: Plan:? Left ureterosocpy laser lithotripsy was discussed to be scheduled. Ordered CT abdomen with and without contrast for further evaluation of right kidney cystic lesion. [facility] Medical History HTN (hypertension) Review of Systems Const All systems reviewed & are unremarkable except as noted in HPI and below Reports no additional complaints Eyes Reports no additional complaints ENT Reports no additional complaints Card Denies dyspnea Resp Denies cough and Denies dyspnea GI Reports no additional complaints Musc Reports no additional complaints Skin/Breast Denies rash and Denies unusual bruising Neuro Reports no additional complaints Psych Reports no additional complaints Endo Reports no additional complaints Amadeo/Lymph Reports no additional complaints Aller/Immun Reports no additional complaints Physical Exam Const General: healthy appearing, no acute distress and well developed Orientation/consciousness: patient oriented x3 HEENT Head: Yes normocephalic and Yes atraumatic Eyes Conjunctivae: conjunctivae normal Neck Neck: Yes normal visual inspection Chest Chest palpation & inspection: normal inspection of the chest Resp Effort & Inspection: normal respiratory effort Cardio Rate: regular rate GI Inspection: Yes normal to inspection Skin General skin exam: no rashes or lesions noted Neuro General: patient oriented x3 Extrem General: No pedal edema Psych Appearance: grossly normal Affect: normal affect Results Reviewed Results Reviewed: Date of Service: 07/24/23 EXAMINATION: CT ABDOMEN AND PELVIS WITHOUT CONTRAST?? CLINICAL INFORMATION: Flank pain?? COMPARISON: None available FINDINGS: LUNG BASES: Minimal subpleural linear atelectasis is evident at the left base.?? LIVER, GALLBLADDER, AND BILIARY TREE: The liver is normal in size, shape, and attenuation. No focal hepatic lesion or biliary ductal dilatation is present. The gallbladder is unremarkable with no evidence of radiopaque gallstones, gallbladder wall thickening, or obvious pericholecystic inflammatory changes.?? PANCREAS: Unremarkable.?? SPLEEN: Unremarkable.?? ADRENAL GLANDS: Unremarkable.?? KIDNEYS AND URETERS: Mild left hydroureter process is evident to the level of a 9 x 4 mm ovoid calculus in the left proximal ureter, just below the left ureteropelvic junction. An ovoid 4 x 3 mm calculus is evident within the left renal lower pole collecting system. There is a 2.8 cm round low density mass in the upper pole the right kidney, which appears to contain some internal structure on this unenhanced study and does does not definitively meet criteria for a simple cyst. BLADDER: Unremarkable.?? GASTROINTESTINAL TRACT: Considerable diverticulosis is noted in the sigmoid, but there is no evidence of diverticulitis. The small bowel and appendix images normally. There is a small sliding hiatal hernia.?? ABDOMINAL WALL: Small fat-containing umbilical hernia.?? LYMPH NODES: Normal. VASCULAR: Unremarkable. PELVIC VISCERA: The prostate gland is mildly enlarged, indenting the bladder base.?? OSSEOUS STRUCTURES: Degenerative disc disease is present at L5-S1.?? IMPRESSION: 1. Mild left hydronephrosis to the level of a 9 x 4 mm left proximal ureteral calculus. 2. Additional nonobstructing 4 x 3 mm left renal lower pole calculus. 3. Right renal upper pole low density lesion, not definitely a simple cyst. Suggest correlation with renal ultrasound for better assessment of the internal architecture. Assessment & Plan Assessment & Plan (1) Ureteral calculus, left: Code(s): N20.1 - Calculus of ureter (2) Kidney stone on left side: Code(s): N20.0 - Calculus of kidney (3) Renal mass of unknown nature: Code(s): N28.89 - Other specified disorders of kidney and ureter Plan Left ureterosocpy laser lithotripsy was discussed to be scheduled. Ordered CT abdomen with and without contrast for further evaluation of right kidney cystic lesion. Orders: Orders CT abdomen wo/w IV con 07/25/23 N20.0 - Calculus of kidney, N20.1 - Calculus of ureter, N28.89 - Other specified disorders of kidney and ureter Medications: New hydromorphone (Dilaudid) take one to 2 tabs q 6 hrs prn pain 2 mg PO Q6H PRN 8 tabs 0RF pain Patient Instructions: The patient had an opportunity to ask questions regarding treatment plan. All questions were answered. Imaging, Laboratory studies and physical exam results were discussed and reviewed in detail. No major barriers to understanding were identified. The patient expressed understanding and agreement with the above treatment plan.? ? ? The patient is aware they should contact our office by phone for worsening of their current condition or the appearance of new symptoms. Compliance is encouraged with any medications and followup testing that is ordered.? ? ? It is a privilege to be allowed the opportunity to participate in the urologic care of your patient. If you have any questions or concerns regarding treatment for the above conditions please do not hesitate to contact me. The office telephone contact is [phone].? ? ? This note is constructed in part using voice recognition software. While every effort has been made to ensure accuracy pet feeder errors may have been included.? ? ? Yours sincerely,? ? ? Taryn Bertrand MD? Coding Level of Care Code New Pt Level 4 (58570) Diagnoses Ureteral calculus, left N20.1 Kidney stone on left side N20.0 Renal mass of unknown nature N28.89
== END 2023-07-25 10:47 | disposition home or self-care (01) ==
PROVIDERS: PCP Internal Medicine; Visit Provider Urology
DX: N20.1 Calculus of ureter (principal); N20.0 Calculus of kidney; N28.89 Other specified disorders of kidney and ureter
CPT/HCPCS: 99204

== ENCOUNTER → 2023-07-25 09:45 | Outpatient (BNVA) | payer BC, SELFPAY | PROVIDERS: PCP Internal Medicine; Visit Provider Urology ==

== ENCOUNTER 2023-07-29 12:51 | Day surgery (SDC) | payer BC, SELFPAY ==
--- NOTE | 2023-07-28 12:04 | HO.ANESPROP2 ---
HPI - Anesthesia Eval Consult details Narrative: 57yo M for Left Cystoscopy, Ureteroroscopy, Retro, Laser PMFSH Active Problems Active Problems: All Active Problems (Updated 07/25/23 @ 10:49 by Taryn Bertrand MD) Ureteral calculus, left (Acute) Kidney stone on left side (Acute) Renal mass of unknown nature (Acute) Past Medical History Medical History HTN (hypertension) Meds Allergies Allergy/AdvReac Type Severity Reaction Status Date / Time No Known Allergies Allergy Verified 07/25/23 10:31 [No Known Allergies*] Exam Pertinent Lab Results Pertinent Lab Results: Laboratory Tests 07/24/23 09:38 WBC 5.5 Hgb 15.5 Hct 43.8 Plt Count 269 Sodium 135 Potassium 4.1 Chloride 105 Carbon Dioxide 24 BUN 19 H Creatinine 0.88 Assessment and Plan Assessment Anesthesia Assessment: Chart Reviewed
[2023-07-29] VITALS (7 sets, daily range): BP systolic 128–150; BP diastolic 69–96; PULSE 60–71; RESP 14–18; TEMP 36.3–36.6; O2SAT 95–98; BMI 31.4
--- NOTE | ~2023-07-29 | FL_ITS ---
EXAMINATION: XR FLUOROSCOPY WITH IMAGES CLINICAL INFORMATION: Cystoscopy, ureteroscopy, retro laser, left side. COMPARISON: None available. TECHNIQUE: Fluoroscopy Supervised By: Dr. Bertrand. Fluoroscopy Time: 47.3 seconds. Cumulative Dose: 20.13 mGy. DAP: None. Images: 3. FINDINGS: Images demonstrate a left internal ureteral stent in satisfactory position FL/FL guidance in OR IMPRESSION: Fluoroscopy guidance for left ureteral stent placement.
[2023-07-29] MEDS: Lactated Ringers 1,000 ML 100 ML IVCONT (14:19)
--- NOTE | 2023-07-29 14:25 | PC.NURSE ---
Report given to Kayden in pacu
--- NOTE | 2023-07-29 16:13 | HO.ANESPROP2 ---
[facility] Active Problems Active Problems: All Active Problems (Updated 07/25/23 @ 10:49 by Taryn Bertrand MD) Ureteral calculus, left (Acute) Kidney stone on left side (Acute) Renal mass of unknown nature (Acute) Past Medical History Medical History HTN (hypertension) Family History Family history of problems with anesthesia: No Social History Social History Patient Tobacco Use Status: Never used Tobacco Use of substances other than those prescribed or required for medical reasons: No Are you DNR?: No Advance Directives: No Advance Directives Information Provided: Yes Meds Allergies Allergy/AdvReac Type Severity Reaction Status Date / Time No Known Allergies Allergy Verified 07/29/23 14:02 [No Known Allergies*] Active Medications: Current Medications Lactated Ringer's (Lr) 1,000 mls @ 100 mls/hr IVCONT .Q10H MEG Last Admin: 07/29/23 14:19 Dose: 100 mls/hr Home Medications Medication Instructions Recorded Confirmed Last Taken Type lisinopril 10 mg tablet 10 mg PO DAILY 07/29/23 07/29/23 07/29/23 History Exam Height,Weight and Vital Signs: Height 5 ft 8 in Weight 93.621 kg Last Vital Signs Temp 97.9 F 07/29/23 13:50 Pulse 71 07/29/23 13:50 Resp 16 07/29/23 13:50 BP 142/96 H 07/29/23 13:50 Pulse Ox 98 07/29/23 13:50 O2 Del Method Room Air 07/29/23 13:50 Assessment and Plan Final Anesthetic Review Family History of Problems with Anesthesia: No
--- NOTE | 2023-07-29 17:01 | MHC.SHP ---
Pre-Procedural Eval Section A Date of Service: 07/29/23 The History & Physical has been completed within 30 days and I have reviewed it.: Yes Section B Chief Complaint: Calculus of kidney,Calculus of ureter Allergies: Allergies Allergy/AdvReac Type Severity Reaction Status Date / Time No Known Allergies Allergy Verified 07/29/23 14:02 [No Known Allergies*] Plan Diagnosis/Plan: Unchanged I have reviewed the history and physical and performed a pertinent physical examination on my patient. No changes have occurred unless specified. Plan for Cystoscopy, left ureteroscopy, possible laser lithotripsy, possible ureteral stent. Risks discussed included but not limited to, possible need to repeat procedure if stone is not completely fragmented, Irritative voiding symptoms, bladder spasms, urgency, blood in urine. Time Spent With Patient Time: Total time managing care of this patient today ____ minutes.
--- NOTE | 2023-07-29 17:29 | P.CONAN_ITS ---
[facility] Active Problems Active Problems: All Active Problems (Updated 07/25/23 @ 10:49 by Taryn Bertrand MD) Ureteral calculus, left (Acute) Kidney stone on left side (Acute) Renal mass of unknown nature (Acute) Past Medical History Medical History HTN (hypertension) Family History Family history of problems with anesthesia: No Social History Social History Patient Tobacco Use Status: Never used Tobacco Use of substances other than those prescribed or required for medical reasons: No Are you DNR?: No Advance Directives: No Advance Directives Information Provided: Yes Meds Allergies Allergy/AdvReac Type Severity Reaction Status Date / Time No Known Allergies Allergy Verified 07/29/23 14:02 [No Known Allergies*] Active Medications: Current Medications Lactated Ringer's (Lr) 1,000 mls @ 100 mls/hr IVCONT .Q10H MEG Last Admin: 07/29/23 14:19 Dose: 100 mls/hr Home Medications Medication Instructions Recorded Confirmed Last Taken Type lisinopril 10 mg tablet 10 mg PO DAILY 07/29/23 07/29/23 07/29/23 History Exam Height,Weight and Vital Signs: Height 5 ft 8 in Weight 93.621 kg Last Vital Signs Temp 97.9 F 07/29/23 13:50 Pulse 71 07/29/23 13:50 Resp 16 07/29/23 13:50 BP 142/96 H 07/29/23 13:50 Pulse Ox 98 07/29/23 13:50 O2 Del Method Room Air 07/29/23 13:50 Airway Mallampati Class: II TM Dist: >3cm Neck ROM: Full Heart: RRR Lungs: CTA Assessment and Plan Assessment Anesthesia Assessment: Anesthesia Plan Discussed Final Anesthetic Review Family History of Problems with Anesthesia: No ASA Class: II Final Preanesthetic Review: Meds/Allgs Chart Reviewed, Consent Obtained/Reviewed and Anes Risks/Benef Reviewed Patient Risk: Low Procedure Risk: Low Anesthetic Plan Anesthetic Plan: GA Disposition: Standard PACU
--- NOTE | 2023-07-29 19:12 | W.PM.OPN ---
Operative Note Operative Note Date of Service: 07/29/23 Narrative: PreOperative Diagnosis:?? left proximal ureteral stone Post Operative Diagnosis:?? Left renal stone Procedure: - cystoscopy, left retrograde, left ureteroscopy laser lithotripsy stent insertion, 6 Palestinian by 26 cm Surgeon:?Dr Taryn Bertrand Anesthesia:? General Indications for procedure: Left proximal ureteral stone with hydronephrosis on CTAP Procedure: After informed consent was verified the patient was brought to the operating placed on the OR table in supine position.? General Anesthesia was administered per protocol.? The patient was placed in lithotomy position, prepped and draped in the usual sterile fashion.? Safety pause time-out and side of surgery confirmed.? Antibiotics confirmed. 2% lidocaine jelly 10 mL was passed transurethrally. A 22 Palestinian cystoscope was inserted transurethrally, the bulbous urethra was within normal limits. The prostatic urethra was nonobstructive. The bladder was visualized.? Both ureteric orifices were in normal position. An open-ended ureteral catheter was passed into the left ureteral orifice and a retrograde examination was performed. A filling defect was not visualized in the ureter contrast was seen in the calyces and renal pelvis. A guidewire was passed through the ureteral catheter into the kidney. The balloon dilator size 12 fr by 4 cm was passed over the guide -wire the balloon was inflated to 10 mmHg and the intramural ureter was dilated for 30 seconds. The balloon was deflated and removed. After removing the balloon dilator a 2nd guidewire was then passed into the kidney to use as a safety. The cystoscope was removed, leaving both guidewires in place. One guidewire was used as the safety and was attached to the draping. The semi rigid ureteroscope was passed over one of the guidewires to the renal pelvis and the stone was not visualized. The semi rigid ureteroscope was removed. The Flexible ureteroscope was then placed over the guidewire into the kidney and the stone was visualized and laser lithotripsy of the stone was done using the 276 fiber with a settings 0.8 joules by 6 hertz. The stone fragmented into small fragments. Attempts to remove the stone fragments with the basket was not successful. The ureteroscope was removed. The cystoscope was passed over the safety guidewire. A? 6 Palestinian by 26 cm stent was placed into the ureter and renal pelvis under a combination of fluoroscopy and direct visualization. The bladder was emptied.? The rigid cystoscope was removed. ? The patient tolerated the procedure well and was brought to the recovery room in stable condition. Complications: None Drains: Ureteral stent as dictated above
[2023-07-29] MEDS: Phenazopyridine HCL 200 MG TABLET PO (19:36)
== END 2023-07-29 20:00 | disposition home or self-care (01) ==
PROVIDERS: PCP Internal Medicine; Visit Provider Urology
PROC: (CPT 52356; principal; 2023-07-29 14:40)
DX: N20.0 Calculus of kidney (principal); I10 Essential (primary) hypertension; Z79.1 Long term (current) use of non-steroidal anti-inflammatories (NSAID); Z79.899 Other long term (current) drug therapy
CPT/HCPCS: 52356; C1726; C1758; C1769; C2617; J0690; J1100; J1885; J2250; J2704; J3010; Q9967

== ENCOUNTER → 2023-07-29 12:51 | Outpatient (BNV) | payer BC, SELFPAY | PROVIDERS: PCP Internal Medicine; Visit Provider Urology | DX: N13.2 Hydronephrosis with renal and ureteral calculous obstruction (principal) | CPT/HCPCS: 52356; 74420 ==

== ENCOUNTER 2023-08-06 13:20 | Outpatient (AMB) | payer BC, SELFPAY ==
--- NOTE | 2023-08-06 13:25 | MHC.OFFVIS ---
Intake Intake Visit Reasons: S/P OR Cysto Special/ Stent removal Intake Note: Patient presents today for a post op cysto: Meds- Naproxen & Tamsulosin Allergies to Antibiotic- No Known Allergies Blood Thinner- None Inspector And Mender Required: No Accompanied by: Self / Same As Patient Allergies No Known Allergies [No Known Allergies*] Allergy (Verified 08/06/23 13:26) Medication List - Last Reconciled 08/06/23 by Taryn Bertrand MD hydromorphone (Dilaudid) 2 mg PO Q6H PRN lisinopril 10 mg PO DAILY ondansetron 4 mg PO Q8H 3 days oxybutynin chloride ER 5 mg PO BID tamsulosin 0.4 mg PO DAILY HPI HPI Comments History of Present Illness Details Ede is a 57-year-old male who presents today to the office for a follow-up. 08/06/23--Here post Left ureteroscopy - review of operative note the stone had migrated into the left kidney, the stone was lasered into fragments. Left ureteral stent placed. He complains of urinary ugency every 15 - 30 min. LV-07/25/2023? He was seen ED on 07/24/2023 with left flank pain.? I reviewed the CAT scan results from 07/24/2023 revealed 9 mm left proximal ureteral stone with mild hydronephrosis; 4 mm non obstructing stone in the lower pole of the left kidney and a 2.8 cm low density lesion in the upper pole of the right kidney which is indeterminate. He denies any hematuria at this time. 08/06/2023: Plan:? Ordered CT abdomen with and without contrast for further evaluation of right kidney cystic lesion. Scheduled for 09/08/2023 and KUB fu nephrolithiasis. oxybutynin 5 mg q d to bid cont flomax until stent removed Consent obtained for cysto, left stent exchange vs removal, poss ureteroscopy laser. [facility] Medical History HTN (hypertension) Social History Patient Tobacco Use Status: Never used Tobacco Review of Systems Const All systems reviewed & are unremarkable except as noted in HPI and below Reports no additional complaints Eyes Reports no additional complaints ENT Reports no additional complaints Card Denies dyspnea Resp Denies cough and Denies dyspnea GI Reports no additional complaints Musc Reports no additional complaints Skin/Breast Denies rash and Denies unusual bruising Neuro Reports no additional complaints Psych Reports no additional complaints Endo Reports no additional complaints Amadeo/Lymph Reports no additional complaints Aller/Immun Reports no additional complaints Results AMB Urinalysis, Automated UA Leukoctes 15 Marco A/uL Last Edit by KRISTEN Rizzo on 08/06/23 13:40 UA Nitrite Negative Last Edit by Marie Graham [facility] on 08/06/23 13:40 UA Urobilinogen 0.2 mg/dL Last Edit by Marie Graham [facility] on 08/06/23 13:40 UA Protein 15 mg/dL Last Edit by Marie Graham [facility] on 08/06/23 13:40 UA pH 6.0 Last Edit by Marie Graham [facility] on 08/06/23 13:40 UA Blood 200 David/uL Last Edit by Marie Graham [facility] on 08/06/23 13:40 3+ Marie Graham 08/06/23 13:40 UA Specific [place] 1.010 Last Edit by KRISTEN Rizzo on 08/06/23 13:40 UA Ketone Negative Last Edit by Marie Graham Migel on 08/06/23 13:40 UA Bilirubin 0 mg/dL Last Edit by Marie Graham Migel on 08/06/23 13:40 UA Glucose 0 mg/dL Last Edit by Marie Graham [facility] on 08/06/23 13:40 Assessment & Plan Assessment & Plan (1) Ureteral calculus, left: Code(s): N20.1 - Calculus of ureter (2) Kidney stone on left side: Code(s): N20.0 - Calculus of kidney (3) Renal mass of unknown nature: Code(s): N28.89 - Other specified disorders of kidney and ureter Plan Ordered CT abdomen with and without contrast for further evaluation of right kidney cystic lesion. Scheduled for 09/08/2023 and KUB fu nephrolithiasis. oxybutynin 5 mg q d to bid cont flomax until stent removed Consent obtained for cysto, left stent exchange vs removal, poss ureteroscopy laser. Orders: Orders AMB Urinalysis Automated Today Z13.9 - Encounter for screening, unspecified Medications: New oxybutynin chloride ER 5 mg PO BID 60 tabs 0RF urinary urgency Refilled tamsulosin 0.4 mg PO DAILY 20 caps 0RF Patient Instructions: The patient had an opportunity to ask questions regarding treatment plan. All questions were answered. Imaging, Laboratory studies and physical exam results were discussed and reviewed in detail. No major barriers to understanding were identified. The patient expressed understanding and agreement with the above treatment plan. The patient is aware they should contact our office by phone for worsening of their current condition or the appearance of new symptoms. Compliance is encouraged with any medications and followup testing that is ordered. It is a privilege to be allowed the opportunity to participate in the urologic care of your patient. If you have any questions or concerns regarding treatment for the above conditions please do not hesitate to contact me. The office telephone contact is [phone]. This note is constructed in part using voice recognition software. While every effort has been made to ensure accuracy polymerization supervisor errors may have been included. Yours sincerely, Taryn Bertrand MD Coding Level of Care Code Est Pt Level 4 (65974) Diagnoses Ureteral calculus, left N20.1 Kidney stone on left side N20.0 Renal mass of unknown nature N28.89
== END 2023-08-06 14:08 | disposition home or self-care (01) ==
PROVIDERS: PCP Internal Medicine; Visit Provider Urology
DX: N20.1 Calculus of ureter (principal); N20.0 Calculus of kidney; N28.89 Other specified disorders of kidney and ureter; Z13.9 Encounter for screening, unspecified
CPT/HCPCS: 99214

== ENCOUNTER → 2023-08-06 13:20 | Outpatient (BNVA) | payer BC, SELFPAY | PROVIDERS: PCP Internal Medicine; Visit Provider Urology | DX: N28.89 Other specified disorders of kidney and ureter (principal); N20.2 Calculus of kidney with calculus of ureter; Z98.890 Other specified postprocedural states | CPT/HCPCS: 81003 ==

== ENCOUNTER 2023-08-19 13:02 | Outpatient (REF) | payer BC, SELFPAY ==
--- NOTE | ~2023-08-19 | XR_ITS ---
EXAMINATION: XR ABDOMEN KUB CLINICAL INDICATION: Calculus of ureter COMPARISON: None available. TECHNIQUE: AP view of the abdomen. FINDINGS: There is scattered gas and stool seen in colon without significant distention. There is no organomegaly. No radiopaque calculi seen. The left internal ureteral stent in place. There is moderate spondylosis and degenerative disc changes upper lumbar spine. SI joints are symmetrical and normal. XR/XR KUB IMPRESSION: 1. Left internal ureteral stent in place. No radiopaque calculi seen. 2. Mild constipation. 3. Moderate spondylosis upper lumbar spine.
== END 2023-08-19 13:03 | disposition home or self-care (01) ==
LOC: HO.HMGCX 13:02
PROVIDERS: PCP Internal Medicine; Visit Provider Urology
DX: N20.1 Calculus of ureter (principal); N20.0 Calculus of kidney; Z96.0 Presence of urogenital implants
CPT/HCPCS: 74018

== ENCOUNTER 2023-08-26 05:51 | Day surgery (SDC) | payer BC, SELFPAY ==
--- NOTE | 2023-08-22 10:44 | HO.ANESPROP2 ---
HPI - Anesthesia Eval Consult details Narrative: 57yo M for Left Cystoscopy, Ureteroroscopy, Retro, Laser,with poss stent placement or removal s/p same 07/29/23 with GA-LMA 5 PMFSH Active Problems Active Problems: All Active Problems (Updated 08/06/23 @ 14:07 by Taryn Bertrand MD) Ureteral stent present (Acute) Ureteral calculus, left (Acute) Kidney stone on left side (Acute) Renal mass of unknown nature (Acute) Past Medical History Medical History (Updated 08/06/23 @ 14:07 by Taryn Bertrand MD) HTN (hypertension) Family History Family history of problems with anesthesia: No Surgical History Surgical History (Updated 08/26/23 @ 06:31 by Julita Cosme RN) Hx of colonoscopy Hx of tonsillectomy Hx of cystoscopy Social History Social History Patient Tobacco Use Status: Never used Tobacco Meds Allergies Allergy/AdvReac Type Severity Reaction Status Date / Time No Known Allergies Allergy Verified 08/26/23 06:13 [No Known Allergies*] Home Medications Medication Instructions Recorded Confirmed Last Taken Type lisinopril 10 mg tablet 10 mg PO DAILY 07/29/23 08/26/23 08/26/23 History omeprazole 20 mg capsule,delayed 20 mg PO DAILY 08/26/23 08/26/23 08/26/23 History release Exam Pertinent Lab Results Pertinent Lab Results: Laboratory Tests 07/24/23 09:38 WBC 5.5 Hgb 15.5 Hct 43.8 Plt Count 269 Sodium 135 Potassium 4.1 Chloride 105 Carbon Dioxide 24 BUN 19 H Creatinine 0.88 Assessment and Plan Assessment Anesthesia Assessment: Chart Reviewed Final Anesthetic Review Family History of Problems with Anesthesia: No
[2023-08-26] VITALS (7 sets, daily range): BP systolic 121–153; BP diastolic 62–89; PULSE 58–71; RESP 16–18; TEMP 36.6–36.8; O2SAT 94–98; BMI 32.3
--- NOTE | ~2023-08-26 | FL_ITS ---
EXAMINATION: XR FLUOROSCOPY WITH IMAGES CLINICAL INFORMATION: Left stone. COMPARISON: None available. TECHNIQUE: Fluoroscopy Supervised By: Dr. Bertrand. Fluoroscopy Time: 6.2 seconds. Cumulative Dose: 2.46 mGy. DAP: Not available. Images: 1. FINDINGS: Image demonstrates catheter in the left ureter and wires projecting over the collecting system and proximal ureter. There is some minimal contrast in the left renal collecting system. FL/FL guidance in OR IMPRESSION: Fluoroscopy for urology procedure.
[2023-08-26] MEDS: Lactated Ringers 1,000 ML 100 ML IVCONT (06:20)
--- NOTE | 2023-08-26 07:26 | HO.ANESPROP2 ---
[facility] Active Problems Active Problems: All Active Problems (Updated 08/06/23 @ 14:07 by Taryn Bertrand MD) Ureteral stent present (Acute) Ureteral calculus, left (Acute) Kidney stone on left side (Acute) Renal mass of unknown nature (Acute) Past Medical History Medical History (Updated 08/06/23 @ 14:07 by Taryn Bertrand MD) HTN (hypertension) Family History Family history of problems with anesthesia: No Surgical History Surgical History (Updated 08/26/23 @ 06:31 by Julita Cosme RN) Hx of colonoscopy Hx of tonsillectomy Hx of cystoscopy History of Problems with Anesthesia: No Social History Social History Patient Tobacco Use Status: Never used Tobacco Are you DNR?: No Advance Directives: No Advance Directives Information Provided: Yes Nutrition Risks: No Nutritional Risk Meds Allergies Allergy/AdvReac Type Severity Reaction Status Date / Time No Known Allergies Allergy Verified 08/26/23 06:13 [No Known Allergies*] Active Medications: Current Medications Lactated Ringer's (Lr) 1,000 mls @ 100 mls/hr IVCONT .Q10H MEG Last Admin: 08/26/23 06:20 Dose: 100 mls/hr Cefazolin Sodium/Dextrose (Ancef) 2 gm in 50 mls @ 100 mls/hr IV PREOP ONE Stop: 08/26/23 07:59 Home Medications Medication Instructions Recorded Confirmed Last Taken Type lisinopril 10 mg tablet 10 mg PO DAILY 07/29/23 08/26/23 08/26/23 History omeprazole 20 mg capsule,delayed 20 mg PO DAILY 08/26/23 08/26/23 08/26/23 History release Exam Height,Weight and Vital Signs: Height 5 ft 8 in Weight 96.343 kg Last Vital Signs Temp 98.0 F 08/26/23 06:28 Pulse 70 08/26/23 06:28 Resp 18 08/26/23 06:28 BP 125/70 08/26/23 06:28 Pulse Ox 97 08/26/23 06:28 O2 Del Method Room Air 08/26/23 06:28 Airway Mallampati Class: III TM Dist: >3cm Neck ROM: Full Loose/Missing/Broken Teeth: No Heart: rrr Lungs: clear Assessment and Plan Final Anesthetic Review Family History of Problems with Anesthesia: No History of Problems with Anesthesia: No NPO: Yes ASA Class: II Final Preanesthetic Review: No Changes in Pt Med Stat, Meds/Allgs Chart Reviewed, Consent Obtained/Reviewed and Anes Risks/Benef Reviewed Patient Risk: Intermediate Procedure Risk: Low Anesthetic Plan Anesthetic Plan: GA Disposition: Standard PACU
--- NOTE | 2023-08-26 07:45 | MHC.SHP ---
Pre-Procedural Eval Section A Date of Service: 08/26/23 The patient is an INPATIENT: No The History & Physical has been completed within 30 days and I have reviewed it.: Yes Section B Chief Complaint: Calculus of ureter,Calculus of kidney Allergies: Allergies Allergy/AdvReac Type Severity Reaction Status Date / Time No Known Allergies Allergy Verified 08/26/23 06:13 [No Known Allergies*] Plan Diagnosis/Plan: Unchanged I have reviewed the history and physical and performed a pertinent physical examination on my patient. No changes have occurred unless specified. Cystoscopy left retrograde stent removal, possible ureteroscopy Time Spent With Patient Time: Total time managing care of this patient today ____ minutes.
--- NOTE | 2023-08-26 08:12 | W.PM.OPN ---
Operative Note Operative Note Date of Service: 08/26/23 Narrative: PreOperative Diagnosis:?? Left nephrolithiasis, status post ureteroscopy left ureteral stent Post Operative Diagnosis:?? ?Left nephrolithiasis, status post ureteroscopy left ureteral stent Procedure: - cystoscopy, left retrograde, - left stent removal, left ureteroscopy stone extraction Surgeon:?Dr Taryn Bertrand Anesthesia:? General Procedure: After informed consent was verified the patient was brought to the operating placed on the OR table in supine position.? General Anesthesia was administered per protocol.? The patient was placed in lithotomy position, prepped and draped in the usual sterile fashion.? Safety pause time-out and side of surgery confirmed.? Antibiotics confirmed. A 22 [place] cystoscope was inserted transurethrally, the bulbous urethra was within normal limits. The prostatic urethra was nonobstructive, [id number] prominence of the median lobe. The bladder was visualized.? Both ureteric orifices were in normal position. Mild edema left ureteral orifice which is expected, distal end of ureteral stent visualized. The grasping forceps were used and the stent was removed without difficulty. The? left ureteric orifice was cannulated? and a retrograde examination was performed, there was a calcification seen in the distal ureter. A hydrophilic guidewire was placed up to the level of the renal pelvis under fluoroscopy. The cystoscope was removed leaving the guidewire in place. The guidewire was attached to the draping as a safety. The semirigid ureteroscope with 2nd guidewire was passed transurethrally into the left ureter up to the proximal ureter. A stone fragment was seen in the distal ureter the stone basket was used to grasp the stone fragment and remove it. The bladder was emptied.? The cystoscope was replaced the safety guidewire was removed. The rigid cystoscope was removed. ? The patient tolerated the procedure well and was brought to the recovery room in stable condition. Complications: None Drains: None
[2023-09-03 16:34] LABS: Stone Source LEFT URETERAL STONE
== END 2023-08-26 09:29 | disposition home or self-care (01) ==
PROVIDERS: PCP Internal Medicine; Visit Provider Urology
PROC: (CPT 52352; principal; 2023-08-26 07:30)
DX: N20.1 Calculus of ureter (principal); N28.89 Other specified disorders of kidney and ureter; I10 Essential (primary) hypertension; Z79.1 Long term (current) use of non-steroidal anti-inflammatories (NSAID); Z79.899 Other long term (current) drug therapy
CPT/HCPCS: 52352; 82365; 88300; C1758; C1769; J0690; J1100; J2250; J2405; J2704; J3010; Q9967

== ENCOUNTER → 2023-08-26 05:51 | Outpatient (BNV) | payer BC, SELFPAY | PROVIDERS: PCP Internal Medicine; Visit Provider Urology | DX: N20.0 Calculus of kidney (principal); Z96.0 Presence of urogenital implants | CPT/HCPCS: 52352; 74420 ==

== ENCOUNTER 2023-09-08 07:51 | Outpatient (REF) | payer BC, SELFPAY ==
--- NOTE | ~2023-09-08 | CT_ITS ---
EXAMINATION: CT ABDOMEN WITHOUT AND WITH CONTRAST CLINICAL INFORMATION: Evaluate indeterminate right renal cyst COMPARISON: 07/24/2023 TECHNIQUE: Contiguous axial thin section helical images of the abdomen were performed before and after the administration of 85 mL of Omnipaque 350 intravenous contrast. The data set was reformatted in the coronal and sagittal planes and reviewed on an independent workstation. This CT examination was performed using dose optimization techniques as appropriate, variously including the following: *Automated exposure control *Adjustment of mA and/or kV according to patient size (this includes techniques or standardized protocols for targeted exams where dose is matched to indication/reason for exam; i.e. extremities or head) *Use of iterative reconstruction technique DLP: 711 mGy-cm FINDINGS: LUNG BASES: Clear LIVER, GALLBLADDER, AND BILIARY TREE: Mild diffuse hypoattenuation of the liver parenchyma may reflect hepatic steatosis. PANCREAS: Unremarkable SPLEEN: Unremarkable ADRENAL GLANDS AND KIDNEYS: Right upper pole 3.7 x 2.9 cm renal cyst measures 5 Hounsfield units on noncontrast imaging and 13 Hounsfield units on postcontrast imaging, consistent with no definite enhancement and no abnormal internal soft tissue structures. Additional hypoattenuating bilateral renal regions are too small to characterize. Nonobstructing 4 mm left lower pole renal stone. Previously seen proximal left ureteral stone is not visualized on today's study, although the entirety of the left ureter is not included in [id number]-[id number]. BOWEL LOOPS: Visualized portions of the small and large bowel are unremarkable. Appendix is within normal limits. LYMPH NODES: Normal. VASCULAR: Unremarkable BONES: Mild degenerative changes of the thoracolumbar spine. CT/CT abdomen wo/w IV con IMPRESSION: Right upper pole 3.7 cm renal cyst demonstrates no definite enhancement and no abnormal internal soft tissue structures, consistent with a Bosniak 1 renal cyst, requiring no follow-up. . * Nonobstructing 4 mm left lower pole renal stone. Previously seen proximal left ureteral stone is not visualized on today's study, although the entirety of the left ureter is not included in [id number]. * Mild diffuse hypoattenuation of the liver parenchyma may reflect hepatic steatosis.
[2023-09-08 10:51] LABS: Creatinine POC 0.7 mg/dL (0.5-1.4); GFR POC > 60
== END 2023-09-08 07:52 | disposition home or self-care (01) ==
LOC: HO.CT 07:51
PROVIDERS: PCP Internal Medicine; Visit Provider Urology
DX: N20.0 Calculus of kidney (principal); N20.1 Calculus of ureter; N28.89 Other specified disorders of kidney and ureter
CPT/HCPCS: 74170; 82565

== ENCOUNTER 2023-09-19 15:22 | Outpatient (AMB) | payer BC, SELFPAY ==
--- NOTE | 2023-09-19 15:34 | A.OFFVIS_ITS ---
Intake Intake Visit Reasons: S/P Cysto Ureteroscopy Intake Note: Patient presents today for a post op cysto: Meds- Naproxen & Tamsulosin Allergies to Antibiotic- No Known Allergies Blood Thinner- None Batter Depositor Required: No Accompanied by: Self / Same As Patient Allergies No Known Allergies [No Known Allergies*] Allergy (Verified 09/19/23 15:34) HPI HPI Comments History of Present Illness Details 09/19/2023--Ede is a 57-year-old male wh o presents today to the office for a follow-up. Ede is status post ureteroscopy stone extraction and stent removal on 08/26/2023. He states he is doing well. I have reviewed the stone analysis and discussed with patient which has come back calcium oxalate dihydrate 20% and calcium oxalate monohydrate 80%. I have discussed at length diet modification to decrease risk of forming more kidney stones. I have discussed low oxalate diet and specific foods to avoid including certain green leafy vegetables, chocalate, nuts, tea, beets, rubarb; low sodium, decreased use of animal protein and the importance of hydration drinking up to 2-2.5 liters of fluids and use of adding lemon to water to increase citrate in the diet. A pamphlet is also provided today. Plan discussed 24 hour urine collection. I have reviewed CT scan results dated 09/08/2023--which was done to further evaluate right indeterminate renal mass on prior imaging. CTAP-- Right upper pole 3.7 cm renal cyst demonstrates no definite enhancement and no abnormal internal soft tissue structures, consistent with a Bosniak 1 renal cyst, requiring no follow-up. Nonobstructing 4 mm left lower pole renal stone. Previously seen proximal left ureteral stone is not visualized. Review of chart: 08/06/23--Here post Left ureteroscopy - review of operative note the stone had migrated into the left kidney, the stone was lasered into fragments. Left ureteral stent placed. He complains of urinary ugency every 15 - 30 min. Plan:?Ordered CT abdomen with and without contrast for further evaluation of right kidney cystic lesion. Scheduled for 09/08/2023 and KUB fu nephrolithiasis. oxybutynin 5 mg q d to bid. cont flomax until stent removed Consent obtained for cysto, left stent exchange vs removal, poss ureteroscopy laser. 07/25/2023? He was seen ED on 07/24/2023 with left flank pain.? I reviewed the CAT scan results from 07/24/2023 revealed 9 mm left proximal ureteral stone with mild hydronephrosis; 4 mm non obstructing stone in the lower pole of the left kidney and a 2.8 cm low density lesion in the upper pole of the right kidney which is indeterminate. He denies any hematuria at this time. 09/19/2023: PLAN: Metabolic workup, 24 hour urine. [facility] Medical History (Updated 11/12/23 @ 09:21 by Taryn Bertrand MD) HTN (hypertension) Surgical History (Updated 08/26/23 @ 06:31 by Julita Cosme RN) Hx of colonoscopy Hx of tonsillectomy Hx of cystoscopy Social History Patient Tobacco Use Status: Never used Tobacco Review of Systems Const All systems reviewed & are unremarkable except as noted in HPI and below Reports no additional complaints Eyes Reports no additional complaints ENT Reports no additional complaints Card Denies dyspnea Resp Denies cough and Denies dyspnea GI Reports no additional complaints Musc Reports no additional complaints Skin/Breast Denies rash and Denies unusual bruising Neuro Reports no additional complaints Psych Reports no additional complaints Endo Reports no additional complaints Amadeo/Lymph Reports no additional complaints Aller/Immun Reports no additional complaints Results AMB Urinalysis, Automated UA Leukoctes 0 Marco A/uL Last Edit by KRISTEN Rizzo on 09/19/23 15:44 UA Nitrite Negative Last Edit by KRISTEN Rizzo on 09/19/23 15:44 UA Urobilinogen 0.2 mg/dL Last Edit by KRISTEN Rizzo on 09/19/23 15:4 4 UA Protein 15 mg/dL Last Edit by KRISTEN Rizzo on 09/19/23 15:44 UA pH 6.0 Last Edit by KRISTEN Rizzo on 09/19/23 15:44 UA Blood 0 David/uL Last Edit by KRISTEN Rizzo on 09/19/23 15:44 UA Specific [place] 1.030 Last Edit by KRISTEN Rizzo on 09/19/23 15: 44 UA Ketone Negative Last Edit by KRISTEN Rizzo on 09/19/23 15:44 UA Bilirubin 0 mg/dL Last Edit by JAIRO RizzoA on 09/19/23 15:44 UA Glucose 0 mg/dL Last Edit by KRISTEN Rizzo on 09/19/23 15:44 Results Reviewed Results Reviewed: Laboratory Last Values Urine pH (Auto) 6.0 09/19/23 15:43 Specific [place] (Auto) 1.030 09/19/23 15:43 Urine Protein (Auto) 15 mg/dL 09/19/23 15:43 Glucose (UA)(Auto) 0 mg/dL 09/19/23 15:43 Urine Ketones (Auto) Negative 09/19/23 15:43 Urine Blood (Auto) 0 David/uL 09/19/23 15:43 Urine Nitrite (Auto) Negative 09/19/23 15:43 Urine Bilirubin (Auto) 0 mg/dL 09/19/23 15:43 Urine Urobilinogen (Auto) 0.2 mg/dL 09/19/23 15:43 Leukocyte Esterase (Auto) 0 Marco A/uL 09/19/23 15:43 Date of Service: 09/08/23 EXAMINATION: CT ABDOMEN WITHOUT AND WITH CONTRAST CLINICAL INFORMATION: Evaluate indeterminate right renal cyst COMPARISON: 07/24/2023 TECHNIQUE: Contiguous axial thin section helical images of the abdomen were performed before and after the administration of 85 mL of Omnipaque 350 intravenous contrast. The data set was reformatted in the coronal and sagittal planes and reviewed on an independent workstation. This CT examination was performed using dose optimization techniques as appropriate, variously including the following: *Automated exposure control *Adjustment of mA and/or kV according to patient size (this includes techniques or standardized protocols for targeted exams where dose is matched to indication/reason for exam; i.e. extremities or head) *Use of iterative reconstruction technique DLP: 711 mGy-cm FINDINGS: LUNG BASES: Clear LIVER, GALLBLADDER, AND BILIARY TREE: Mild diffuse hypoattenuation of the liver parenchyma may reflect hepatic steatosis. PANCREAS: Unremarkable SPLEEN: Unremarkable ADRENAL GLANDS AND KIDNEYS: Right upper pole 3.7 x 2.9 cm renal cyst measures 5 Hounsfield units on noncontrast imaging and 13 Hounsfield units on postcontrast imaging, consistent with no definite enhancement and no abnormal internal soft tissue structures. Additional hypoattenuating bilateral renal regions are too small to characterize. Nonobstructing 4 mm left lower pole renal stone. Previously seen proximal left ureteral stone is not visualized on today's study, although the entirety of the left ureter is not included in [id number]. BOWEL LOOPS: Visualized portions of the small and large bowel are unremarkable. Appendix is within normal limits. LYMPH NODES: Normal. VASCULAR: Unremarkable BONES: Mild degenerative changes of the thoracolumbar spine. IMPRESSION: Right upper pole 3.7 cm renal cyst demonstrates no definite enhancement and no abnormal internal soft tissue structures, consistent with a Bosniak 1 renal cyst, requiring no follow-up. . * Nonobstructing 4 mm left lower pole renal stone. Previously seen proximal left ureteral stone is not visualized on today's study, although the entirety of the left ureter is not included in [id number]. * Mild diffuse hypoattenuation of the liver parenchyma may reflect hepatic steatosis. Assessment & Plan Assessment & Plan (1) Ureteral calculus, left: Code(s): N20.1 - Calculus of ureter (2) Kidney stone on left side: Code(s): N20.0 - Calculus of kidney (3) Renal cyst: Code(s): N28.1 - Cyst of kidney, acquired Plan Metabolic workup, 24 hour urine. Orders: Orders AMB Urinalysis Automated 09/19/23 Z13.9 - Encounter for screening, unspecified Patient Instructions: The patient had an opportunity to ask questions regarding treatment plan. All questions were answered. Imaging, Laboratory studies and physical exam results were discussed and reviewed in detail. No major barriers to understanding were identified. The patient expressed understanding and agreement with the above treatment plan. The patient is aware they should contact our office by phone for worsening of their current condition or the appearance of new symptoms. Compliance is encouraged with any medications and followup testing that is ordered. It is a privilege to be allowed the opportunity to participate in the urologic care of your patient. If you have any questions or concerns regarding treatment for the above conditions please do not hesitate to contact me. The office telephone contact is [phone]. This note is constructed in part using voice recognition software. While every effort has been made to ensure accuracy food safety auditor errors may have been included. Yours sincerely, Taryn Bertrand MD Coding Level of Care Code Est Pt Level 4 (59709) Diagnoses Ureteral calculus, left N20.1 Kidney stone on left side N20.0 Renal cyst N28.1
== END 2023-09-19 16:22 | disposition home or self-care (01) ==
PROVIDERS: PCP Internal Medicine; Visit Provider Urology
DX: N20.1 Calculus of ureter (principal); N20.0 Calculus of kidney; N28.1 Cyst of kidney, acquired
CPT/HCPCS: 99214

== ENCOUNTER → 2023-09-19 15:22 | Outpatient (BNVA) | payer BC, SELFPAY | PROVIDERS: PCP Internal Medicine; Visit Provider Urology | DX: Z48.816 Encounter for surgical aftercare following surgery on the genitourinary system (principal); N20.0 Calculus of kidney; N28.1 Cyst of kidney, acquired | CPT/HCPCS: 81003 ==

== ENCOUNTER 2023-11-27 08:23 | Outpatient (AMB) | payer BC, SELFPAY ==
--- NOTE | 2023-11-27 08:44 | A.OFFVIS_ITS ---
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 He has been followed for kidney stones. The patient had evaluation for right kidney lesion workup was consistent with a simple cyst. Last imaging CT 09/08/2023--4 mm left kidney cyst right kidney simple cyst. Discussed 24 hour urine results: Total volume 3.70 L, Calcium 130 mg; Oxalate 38 mg, Sodium 209, Citrate 674 mg. Instructed on importance of fluid intake, Low oxalate diet, low sodium diet. Plan discussed low sodium diet. Vitamin B6 (pyridoxine 100 mg daily). Discussed if patient has renal colic to use tamsulosin p.r.n. and contact the office. Follow-up in 1 year with renal ultrasound prior. Review of chart: 09/19/2023--Ede is a 57-year-old male wh o presents today to the office for a follow-up. Ede is status post ureteroscopy stone extraction and stent removal on 08/26/2023. He states he is doing well. I have reviewed the stone analysis and discussed with patient which has come back calcium oxalate dihydrate 20% and calcium oxalate monohydrate 80%. I have discussed at length diet modification to decrease risk of forming more kidney stones. I have discussed low oxalate diet and specific foods to avoid including certain green leafy vegetables, chocalate, nuts, tea, beets, rubarb; low sodium, decreased use of animal protein and the importance of hydration drinking up to 2-2.5 liters of fluids and use of adding lemon to water to increase citrate in the diet. A pamphlet is also provided today. Plan discussed 24 hour urine collection. I have reviewed CT scan results dated 09/08/2023--which was done to further evaluate right indeterminate renal mass on prior imaging. CTAP-- Right upper pole 3.7 cm renal cyst demonstrates no definite enhancement and no abnormal internal soft tissue structures, consistent with a Bosniak 1 renal cyst, requiring no follow-up. Nonobstructing 4 mm left lower pole renal stone. Previously seen proximal left ureteral stone is not visualized. 08/06/23--Here post Left ureteroscopy - review of operative note the stone had migrated into the left kidney, the stone was lasered into fragments. Left ureteral stent placed. He complains of urinary ugency every 15 - 30 min. Plan:?Ordered CT abdomen with and without contrast for further evaluation of right kidney cystic lesion. Scheduled for 09/08/2023 and KUB fu nephrolithiasis. oxybutynin 5 mg q d to bid. cont flomax until stent removed Consent obtained for cysto, left stent exchange vs removal, poss ureteroscopy laser. 07/25/2023? He was seen ED on 07/24/2023 with left flank pain.? I reviewed the CAT scan results from 07/24/2023 revealed 9 mm left proximal ur eteral stone with mild hydronephrosis; 4 mm non obstructing stone in the lower pole of the left kidney and a 2.8 cm low density lesion in the upper pole of the right kidney which is indeterminate. He denies any hematuria at this time. 11/27/2023: PLAN: Plan discussed low sodium diet. Vitamin B6 (pyridoxine 100 mg daily). Discussed if patient has renal colic to use tamsulosin p.r.n. and contact the office. Follow-up in 1 year with renal ultrasound prior. [facility] Medical History HTN (hypertension) Surgical History Hx of colonoscopy Hx of tonsillectomy Hx of cystoscopy Social History Patient Tobacco Use Status: Never used Tobacco Review of Systems Const All systems reviewed & are unremarkable except as noted in HPI and below Reports no additional complaints Eyes Reports no additional complaints ENT Reports no additional complaints Card Reports no additional complaints Resp Reports no additional complaints GI Reports no additional complaints Reports as per HPI Musc Reports no additional complaints Skin/Breast Reports system reviewed and no additional complaints, except as documented Neuro Reports no additional complaints Psych Reports no additional complaints Endo Reports no additional complaints Amadeo/Lymph Reports no additional complaints Aller/Immun Reports no additional complaints Results AMB Urinalysis, Automated UA Leukoctes 0 Marco A/uL Last Edit by KRISTEN Rizzo on 11/27/23 08:57 UA Nitrite Negative Last Edit by KRISTEN Rizzo on 11/27/23 08:57 UA Urobilinogen 0.2 mg/dL Last Edit by KRISTEN Rizzo on 11/27/23 08:5 7 UA Protein 0 mg/dL Last Edit by KRISTEN Rizzo on 11/27/23 08:57 UA pH 6.0 Last Edit by KRISTEN Rizzo on 11/27/23 08:57 UA Blood 0 David/uL Last Edit by KRISTEN Rizzo on 11/27/23 08:57 UA Specific [place] 1.005 Last Edit by KRISTEN Rizzo on 11/27/23 08: 57 UA Ketone Negative Last Edit by KRISTEN Rizzo on 11/27/23 08:57 UA Bilirubin 0 mg/dL Last Edit by KRISTEN Rizzo on 11/27/23 08:57 UA Glucose 0 mg/dL Last Edit by KRISTEN Rizzo on 11/27/23 08:57 Results Reviewed Results Reviewed: Laboratory Last Values Urine pH (Auto) 6.0 11/27/23 08:52 Specific [place] (Auto) 1.005 11/27/23 08:52 Urine Protein (Auto) 0 mg/dL 11/27/23 08:52 Glucose (UA)(Auto) 0 mg/dL 11/27/23 08:52 Urine Ketones (Auto) Negative 11/27/23 08:52 Urine Blood (Auto) 0 David/uL 11/27/23 08:52 Urine Nitrite (Auto) Negative 11/27/23 08:52 Urine Bilirubin (Auto) 0 mg/dL 11/27/23 08:52 Urine Urobilinogen (Auto) 0.2 mg/dL 11/27/23 08:52 Leukocyte Esterase (Auto) 0 Marco A/uL 11/27/23 08:52 Assessment & Plan Assessment & Plan (1) Kidney stone on left side: Code(s): N20.0 - Calculus of kidney (2) Renal cyst: Code(s): N28.1 - Cyst of kidney, acquired Plan Plan discussed low sodium diet. Vitamin B6 (pyridoxine 100 mg daily). Discussed if patient has renal colic to use tamsulosin p.r.n. and contact the office. Follow-up in 1 year with renal ultrasound prior. Orders: Orders AMB Urinalysis Automated Today Z13.9 - Encounter for screening, unspecified Medications: New tamsulosin (Flomax) 0.4 mg PO DAILY PRN 21 caps 0RF To help pass kidney stones Discontinued ondansetron Discontinued Reason: Patient Completed Course 4 mg PO Q8H PRN Patient Instructions: The patient had an opportunity to ask questions regarding treatment plan. All questions were answered. Imaging, Laboratory studies and physical exam results were discussed and reviewed in detail. No major barriers to understanding were identified. The patient expressed understanding and agreement with the above treatment plan. The patient is aware they should contact our office by phone for worsening of their current condition or the appearance of new symptoms. Compliance is encouraged with any medications and followup testing that is ordered. It is a privilege to be allowed the opportunity to participate in the urologic care of your patient. If you have any questions or concerns regarding treatment for the above conditions please do not hesitate to contact me. The office telephone contact is [phone]. This note is constructed in part using voice recognition software. While every effort has been made to ensure accuracy automation qa tester errors may have been included. Yours sincerely, Taryn Bertrand MD Coding Level of Care Code Est Pt Level 4 (86691) Diagnoses Kidney stone on left side N20.0 Renal cyst N28.1
== END 2023-11-27 09:19 | disposition home or self-care (01) ==
PROVIDERS: PCP Internal Medicine; Visit Provider Urology
DX: N20.0 Calculus of kidney (principal); N28.1 Cyst of kidney, acquired; Z13.9 Encounter for screening, unspecified
CPT/HCPCS: 99214

== ENCOUNTER → 2023-11-27 08:23 | Outpatient (BNVA) | payer BC, SELFPAY | PROVIDERS: PCP Internal Medicine; Visit Provider Urology | DX: N20.0 Calculus of kidney (principal); N28.1 Cyst of kidney, acquired | CPT/HCPCS: 81003 ==

== ENCOUNTER 2024-03-29 06:52 | Outpatient (REF) | payer BC, SELFPAY ==
[2024-03-29 10:09] LABS: MANUAL DIFF FLAG NO
[2024-03-29 10:17] LABS: Basophils Percent Auto 0.7 % (0-2); Eosinophils Absolute Auto 0.2 X10*3/uL (0.0-0.4); Eosinophils Percent Auto 5.1 % (0-4); Hematocrit 44.9 % (42.0-52.0); Hemoglobin 15.7 g/dl (14.0-18.0); Imm Gran Abs Auto 0.01 X10*3/uL (0.00-0.03); Imm Gran Pct Auto 0.2 % (0.0-0.4); Lymphocytes Absolute Auto 1.5 X10*3/uL (1.2-4.9); Lymphocytes Percent Auto 32.8 % (20-40); Mean Corpuscular Hemoglobin 30.6 pg (27.0-33.0); Mean Corpuscular Volume 87.5 fL (80.0-98.0); Mean Platelet Volume 9.4 fL (9.4-12.4); Monocytes Absolute Auto 0.5 X10*3/uL (0.1-1.2); Monocytes Percent Auto 11.2 % (2-11); Neutrophils Absolute Auto 2.2 x10*3/uL (2.0-8.3); Platelet Count 281 X10*3/uL (160-400); Red Blood Count 5.13 X10*6/uL (4.60-5.80); Red Cell Distribution Width 12.8 % (11.0-16.0); White Blood Count 4.5 X10*3/uL (4.8-10.8)
[2024-03-29 10:42] LABS: Alanine Aminotransferase 57 U/L (0-40); Albumin Level 4.4 g/dL (3.5-5.0); Alkaline Phosphatase 83 U/L (39-117); Anion Gap 11 (12-20); Aspartate Amino Transferase 38 U/L (5-37); Bilirubin Total 0.6 mg/dL (0.0-1.0); Blood Urea Nitrogen 23 mg/dL (9-16); Calcium 9.6 mg/dL (8.4-10.2); Carbon Dioxide 28 mmol/L (22-29); Chloride 105 mmol/L (96-108); Cholesterol 201 mg/dL (<200); Estimated Glomerular Filt Rate > 60; Glucose Fasting 105 mg/dL (60-99); HDL Cholesterol 47 mg/dL (>40); LDL Cholesterol Calculated 117 mg/dL (<100); Potassium 4.6 mmol/L (3.3-5.1); Sodium 139 mmol/L (135-145); Total Protein 7.3 g/dL (6.5-8.0); Triglycerides 185 mg/dL (<150)
[2024-03-29 11:05] LABS: Thyroid Stimulating Hormone 2.14 uIU/mL (0.32-4.0); Vitamin D 25-OH Total 52.1 ng/mL (>30)
== END 2024-03-29 06:53 | disposition home or self-care (01) ==
LOC: HO.HMGCLDS 06:52
PROVIDERS: PCP Internal Medicine; Visit Provider Internal Medicine
DX: Z00.00 Encounter for general adult medical examination without abnormal findings (principal); I10 Essential (primary) hypertension; K21.9 Gastro-esophageal reflux disease without esophagitis; E78.00 Pure hypercholesterolemia, unspecified; E55.9 Vitamin D deficiency, unspecified; Z12.5 Encounter for screening for malignant neoplasm of prostate
CPT/HCPCS: 36415; 80053; 80061; 82306; 84153; 84443; 85025

== ENCOUNTER 2024-04-12 14:31 | Outpatient (REF) | payer BC, SELFPAY ==
--- NOTE | ~2024-04-12 | XR_ITS ---
EXAMINATION: XR LUMBAR SPINE XR RIGHT HIP CLINICAL INFORMATION: Right hip pain and low back pain. COMPARISON: CT abdomen and pelvis from 09/08/2023. TECHNIQUE: Lumbar spine, 3 views Right hip, 2 views FINDINGS: Lumbar spine: The lumbar lordotic curvature is maintained. The vertebral body heights are well-preserved. No compression fractures. Moderate degenerative disc space narrowing and prominent anterior traction osteophyte formation at L1-L2 and L2-L3. Chronic minimal degenerative retrolisthesis of L2 on L3. Severe facet arthropathy, mild degenerative loss of disc height and 0.5 cm grade 1 anterolisthesis at L5-S1. Sacrum and sacroiliac joints are unremarkable. No focal lytic or osteoblastic lesions. Bowel gas pattern is normal. 0.4 cm stone of the lower pole of the left kidney. Right hip: The femoral head is well-positioned within the intact acetabulum. Hip joint space is are well-preserved. There appears to be a subchondral cyst of the superolateral acetabulum. Overall, no significant degenerative changes. No fracture or osteonecrosis. Soft tissues are unremarkable. XR/XR lumbar spine 2-3V IMPRESSION: * No acute abnormalities in the lumbar spine right hip. No fractures. * Chronic multilevel disc degenerative changes of the lumbar spine. * Chronic severe facet arthropathy and grade 1 anterolisthesis at L5-S1. * 0.4 cm stone of the lower pole of the left kidney.
--- NOTE | ~2024-04-12 | XR_ITS ---
EXAMINATION: XR LUMBAR SPINE XR RIGHT HIP CLINICAL INFORMATION: Right hip pain and low back pain. COMPARISON: CT abdomen and pelvis from 09/08/2023. TECHNIQUE: Lumbar spine, 3 views Right hip, 2 views FINDINGS: Lumbar spine: The lumbar lordotic curvature is maintained. The vertebral body heights are well-preserved. No compression fractures. Moderate degenerative disc space narrowing and prominent anterior traction osteophyte formation at L1-L2 and L2-L3. Chronic minimal degenerative retrolisthesis of L2 on L3. Severe facet arthropathy, mild degenerative loss of disc height and 0.5 cm grade 1 anterolisthesis at L5-S1. Sacrum and sacroiliac joints are unremarkable. No focal lytic or osteoblastic lesions. Bowel gas pattern is normal. 0.4 cm stone of the lower pole of the left kidney. Right hip: The femoral head is well-positioned within the intact acetabulum. Hip joint space is are well-preserved. There appears to be a subchondral cyst of the superolateral acetabulum. Overall, no significant degenerative changes. No fracture or osteonecrosis. Soft tissues are unremarkable. XR/XR hip RT min 2V IMPRESSION: * No acute abnormalities in the lumbar spine right hip. No fractures. * Chronic multilevel disc degenerative changes of the lumbar spine. * Chronic severe facet arthropathy and grade 1 anterolisthesis at L5-S1. * 0.4 cm stone of the lower pole of the left kidney.
== END 2024-04-12 14:32 | disposition home or self-care (01) ==
LOC: HO.HMGCX 14:31
PROVIDERS: PCP Internal Medicine; Visit Provider Chiropractor
DX: M54.50 Low back pain, unspecified (principal); M25.551 Pain in right hip
CPT/HCPCS: 72100; 73502

== ENCOUNTER 2024-06-17 07:06 | Outpatient (REF) | payer BC, SELFPAY ==
[2024-06-17 10:37] LABS: C Reactive Protein 0.13 mg/dL (< or = 0.50)
[2024-06-17 10:57] LABS: Erythrocyte Sedimentation Rate 3 MM/HR (0-15)
[2024-06-18 13:14] LABS: Lyme Abs Screen <0.90 index
[2024-06-23 20:03] LABS: Babesia IgG <1:64 titer (<1:64); Babesia IgM <1:20 titer (<1:20)
== END 2024-06-17 07:07 | disposition home or self-care (01) ==
LOC: HO.HMGCLDS 07:06
PROVIDERS: PCP Internal Medicine; Visit Provider Internal Medicine
DX: M25.50 Pain in unspecified joint (principal); T14.8XXA Other injury of unspecified body region, initial encounter
CPT/HCPCS: 36415; 85652; 86140; 86617; 86618; 86753

== ENCOUNTER → 2024-08-11 08:01 | Outpatient (BNVA) | payer OTHER, SELFPAY | PROVIDERS: PCP Internal Medicine; Visit Provider Internal Medicine | DX: S67.22XA Crushing injury of left hand, initial encounter (principal); X50.0XXA Overexertion from strenuous movement or load, initial encounter | CPT/HCPCS: 73130; 90715; 99203 ==

== ENCOUNTER → 2024-08-13 07:54 | Outpatient (BNVA) | payer OTHER, SELFPAY | PROVIDERS: PCP Internal Medicine; Visit Provider Internal Medicine | DX: S67.22XA Crushing injury of left hand, initial encounter (principal); X50.0XXA Overexertion from strenuous movement or load, initial encounter | CPT/HCPCS: 99213 ==

== ENCOUNTER 2024-08-16 07:09 | Emergency (ER) | payer BC, SELFPAY ==
[2024-08-16] VITALS (7 sets, daily range): BP systolic 124–158; BP diastolic 71–93; PULSE 54–78; RESP 16–18; TEMP 36.4–36.9; O2SAT 93–100; BMI 33.4
--- NOTE | ~2024-08-16 | MR_ITS ---
EXAMINATION: MR ABDOMEN WITHOUT AND WITH CONTRAST CLINICAL INFORMATION: Abnormal spleen on CT COMPARISON: CT abdomen and pelvis 08/16/2024, 09/08/2023. TECHNIQUE: MR abdomen was performed without and with use of 10 mL intravenous Gadavist gadolinium contrast. Postcontrast images are performed in multiphase dynamic sequences. Imaging was performed in 3 planes. FINDINGS: LUNG BASES: No pleural effusions. Minimal atelectasis in the left lung base. LIVER, GALLBLADDER, AND BILIARY TREE: Liver is mildly enlarged measuring up to 18 cm in craniocaudal dimension. There is signal drop on the out of phase images which can be seen with hepatic steatosis. No focal hepatic lesion. The gallbladder is unremarkable with no evidence of gallbladder wall thickening, or obvious pericholecystic inflammatory changes. There is no intra or extra hepatic biliary ductal dilation. PANCREAS: No focal lesion. No ductal dilation. SPLEEN: There is a T1 isointense, T2 mildly hyperintense lobulated lesion at the anterior inferior spleen measuring approximately 4.6 x 4.4 cm in the axial plane and up to 4.3 cm in the vertical extent, 5:25 and 3:22. On the arterial phase, the lesion is hypoattenuating to the splenic parenchyma. On the postcontrast images, the lesion demonstrates progressive centripetal enhancement on the dynamic post contrast images. The lesion demonstrates mild restricted diffusion. This mass is new compared to prior CT from 09/08/2023. ADRENAL GLANDS: Unremarkable. KIDNEYS AND URETERS: Symmetric nephrograms. Minimally complex cyst with few internal septations in the upper pole of the right kidney measuring up to 3.9 cm. Additional bilateral simple renal cortical cysts. No dedicated follow-up imaging is required for simple or minimally complex cysts. No hydronephrosis. Small nonobstructing left renal calculus is better evaluated on CT performed on the same date. GASTROINTESTINAL TRACT: Included bowel loops are nondilated. Scattered colonic diverticulosis. ABDOMINAL WALL: No significant hernia is appreciated. LYMPH NODES: No enlarged abdominal lymph nodes. VASCULAR: The abdominal aorta is normal in caliber. OSSEOUS STRUCTURES: Degenerative changes of the visualized spine. MR/MR abdomen wo/w con IMPRESSION: Approximate 4.6 cm T1 isointense, T2 mildly hyperintense lobulated lesion at the anterior inferior spleen which demonstrates progressive centripetal/internal enhancement and mild restricted diffusion. Although imaging characteristics may suggest possibility of hemangioma, malignant etiologies are not excluded given the mass is new from prior CT from 09/08/2023. Correlation with tissue sampling is recommended for more definitive characterization. Scattered colonic diverticulosis. Mild hepatomegaly and hepatic steatosis. Electronically signed by: Kevin Pena MD 08/16/2024 05:07 PM [facility]AN[facility]
--- NOTE | ~2024-08-16 | CT_ITS ---
EXAMINATION: CT ABDOMEN AND PELVIS WITH CONTRAST CLINICAL INFORMATION: Status post fall. COMPARISON: CT dated February 07, 2024 TECHNIQUE: Multidetector volumetric images were obtained from the superior aspect of the liver through the pubic symphysis following administration 85 mL of Omnipaque 350 intravenous contrast. Sagittal and coronal reformatted images were obtained on the technologist's workstation. Oral contrast: No This CT examination was performed using dose optimization techniques as appropriate, variously including the following: *Automated exposure control *Adjustment of mA and/or kV according to patient size (this includes techniques or standardized protocols for targeted exams where dose is matched to indication/reason for exam; i.e. extremities or head) *Use of iterative reconstruction technique DLP: 1185 mGy-cm FINDINGS: LUNG BASES: Linear and patchy pulmonary groundglass in the periphery of the lung bases and lingula. LIVER, GALLBLADDER, AND BILIARY TREE: The liver measures 18 cm. There is intact. Portal veins, hepatic veins and intrahepatic portion of the IVC are patent. No pericholecystic fluid collection or gallbladder wall thickening. No intrahepatic or extrahepatic biliary ductal dilatation. PANCREAS: No focal mass. No peripancreatic fluid collection. No main pancreatic ductal dilatation. SPLEEN: 9 cm. There is a 4 cm lobulated possibly septated heterogeneous hypodense lesion measuring 30 Hounsfield units in the anterior inferior aspect of the parenchyma. ADRENAL GLANDS: No nodular lesions. KIDNEYS AND URETERS: Multifocal, different sizes nonenhancing fluid density lesions in both kidneys, the largest in the anterior upper pole right kidney measures 3 cm. There is a 3 mm nonobstructing calculus in the lower pole of the pelvicalyceal system left kidney. No hydronephrosis in either kidney. No solid renal mass. BLADDER: Not imaged GASTROINTESTINAL TRACT: Appendix is normal. Abundant stool large intestine. No intestinal obstruction pattern. No pneumoperitoneum. No pneumatosis intestinalis. No gross ascites in the abdomen. Scattered diverticula in the left hemicolon, no fully imaged. Small hiatal hernia. ABDOMINAL WALL: Diastases abdominal rectus muscles. Fat-containing umbilical hernia. LYMPH NODES: Nonspecific mildly prominent lymph nodes, mesenteric and retroperitoneal. VASCULAR: Calcified plaques coronary arteries distal abdominal aorta and iliac arteries. No aneurysm or dissection abdominal aorta. PELVIC VISCERA: Not imaged. OSSEOUS STRUCTURES: Multilevel thoracolumbar spondylosis. The L5-S1 is not imaged. No acute fracture or gross listhesis in the included axial skeleton. Bony pelvis is excluded. CT/CT abdomen pelvis w IV con IMPRESSION: No intra-abdominal organs and traumatic injury or vascular injury. 4 cm lesion in the spleen, new since prior exam. Concerning for malignancy. Bilateral renal cysts. Nonobstructing nephrolithiasis, left kidney. Hepatomegaly. Diverticular disease. The pelvis is not included in the exam.. Fleischner guidelines were followed. Electronically signed by: Morales Patterson MD 08/16/2024 09:43 AM [facility]
--- NOTE | ~2024-08-16 | XR_ITS ---
EXAMINATION: XR CHEST CLINICAL INFORMATION: fall COMPARISON: June 12, 2020. TECHNIQUE: Portable AP view of the chest was obtained. FINDINGS: No significant abnormality is noted involving the heart, lungs, mediastinum, bony thorax or soft tissues. XR/XR chest 1V IMPRESSION: Normal portable AP view of the chest. Electronically signed by: Landon Billy MD 08/16/2024 08:00 AM [facility] [place]
--- NOTE | ~2024-08-16 | CT_ITS ---
EXAMINATION: CT HEAD WITHOUT CONTRAST CLINICAL INFORMATION: head injury COMPARISON: No prior CT. Correlated to MRI brain dated November 20, 2006. TECHNIQUE: Contiguous axial imaging was performed from the skull base to vertex without intravenous administration of contrast. This CT examination was performed using dose optimization techniques as appropriate, variously including the following: *Automated exposure control *Adjustment of mA and/or kV according to patient size (this includes techniques or standardized protocols for targeted exams where dose is matched to indication/reason for exam; i.e. extremities or head) *Use of iterative reconstruction technique DLP: 850 mGy-cm FINDINGS: Limited by patient's positioning on the CT scanner. The bony calvarium is intact. The skull base is intact. No acute intracranial hemorrhage, mass effect, midline shift, hydrocephalus or herniation. Dela Cruz-white matter differentiation is normal. Posterior cranial fossa contents demonstrated no acute intracranial hemorrhage or mass effect. There is an 8 mm CSF equivalent abnormality at the subcortical white matter anterior right temporal lobe. Sellar/suprasellar region demonstrated no gross masses or hemorrhage. Craniocervical junction is intact with a borderline position of the cerebellar tonsils. Mucosal thickening, right maxillary sinus. Tympanic cavities and mastoid air cells are aerated. CT/CT head/brain wo IV con IMPRESSION: No acute fracture, bony calvarium. No acute intracranial hemorrhage. 8 mm CSF abnormality, anterior subcortical right temporal lobe. Low-lying cerebellar tonsils Electronically signed by: Morales Patterson MD 08/16/2024 09:33 AM [facility] [place]
--- NOTE | ~2024-08-16 | CT_ITS ---
EXAMINATION: CT CERVICAL SPINE WITHOUT CONTRAST CLINICAL INFORMATION: Neck injury. COMPARISON: None available. TECHNIQUE: Contiguous axial images through the cervical spine using 3 mm collimation with bone and soft tissue algorithm. Sagittal and coronal reformatted images acquired. This CT examination was performed using dose optimization techniques as appropriate, variously including the following: *Automated exposure control *Adjustment of mA and/or kV according to patient size (this includes techniques or standardized protocols for targeted exams where dose is matched to indication/reason for exam; i.e. extremities or head) *Use of iterative reconstruction technique DLP: 596 mGy-cm FINDINGS: Limited by patient's positioning on the CT scanner. Craniocervical junction is intact. C1 is intact. C2 is intact. C3 is intact. C4 is intact. C6 is intact. C7 is intact. C7 is intact. The alignment is normal. Low position of the cerebellar tonsils. Multilevel marginal osteophyte formation more conspicuous at C5-6 and to a lesser extent C6-7. Ossification of the posterior longitudinal ligament C3-4 to C4-5 resulting in central spinal canal narrowing/decreased diameter. No prevertebral compartment hematoma. The tympanic cavities and mastoid cells are aerated. Nonspecific mildly prominent cervical lymph nodes. CT/CT cervical spine wo IV con IMPRESSION: Multilevel cervical spondylosis without acute fracture or trauma-related listhesis. Fleischner guidelines were followed. Electronically signed by: Morales Patterson MD 08/16/2024 09:50 AM [facility]
--- NOTE | 2024-08-16 07:12 | ED.FALL ---
HPI - Fall General Chief Complaint: Fall Stated Complaint: FALL DOWN STEPS 2 DAYS AGO,BACK PAIN/SPASMS Time Seen by Provider: 08/16/24 07:11 Source: patient, family, EMS and old records reviewed Mode of arrival: EMS Limitations: no limitations History of Present Illness ED Provider: HUGO CORONEL Narrative: 58 yo male with PMH of HTN, renal cysts, ureteral stent with prior intervention, no blood thinners here with c/o falling down due to icy conditions 2 days ago missed about 4 steps and landed on back - no LOC but did hit head. Has been okay but then last night sig back pain no b/b incontinence, no saddle anesthesia. Tried to take tizanidine but no relief. He did urinate blood yesterday. He has not had any vomiting or confusion. Cannot walk. 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 Onset (ago): day(s) (2) Fall from: standing Fall witnessed: no Place fall occurred: home Loss of consciousness: none Prolonged down time: no Symptoms prior to fall: none Context: tripped/slipped Location of injury: head and back Severity: severe Quality: spasming and throbbing Associated symptoms (after fall): denies Related Data Home Medications ?Medication ?Instructions ?Recorded ?Confirmed lisinopril 10 mg tablet 10 mg PO DAILY 07/29/23 08/26/23 omeprazole 20 mg capsule,delayed 20 mg PO DAILY 08/26/23 08/26/23 release Previous Rx's ?Medication ?Instructions ?Recorded tamsulosin 0.4 mg capsule (Flomax) 0.4 mg PO DAILY PRN To help pass 11/27/23 kidney stones #21 caps pyridoxine (vitamin B6) 100 mg 100 mg PO DAILY 90 days #90 tabs 06/03/24 tablet diazepam 5 mg tablet (Valium) 5 mg PO TID PRN muscle spasm #10 08/16/24 tabs morphine 15 mg immediate release 15 mg PO Q6H PRN pain #14 tabs 08/16/24 tablet Allergies Allergy/AdvReac Type Severity Reaction Status Date / Time No Known Allergies Allergy Verified 08/16/24 07:26 [No Known Allergies*] Review of Systems Review of Systems: Constitutional : No Weight loss, No Fever, No Chills, ENT/Mouth : No Hearing loss, No Ear Pain, No Nasal Congestion, No Sinus Pain, No Hoarseness, No sore throat, No Rhinorrhea, No Swallowing Difficulty Cardiovascular : No Chest Pain, No SOB Respiratory : No Cough, No Dyspnea Gastrointestinal : No Nausea, No Vomiting, No Diarrhea, No abdominal Pain, No Hematochezia, No Melena Genitourinary : No Dysuria, No Urinary Frequency, No Hematuria, No Urinary Incontinence, Musculoskeletal : positive back pain Skin : No Skin Lesions, No rash Neuro : No Weakness, No Numbness, No Paresthesias, no loss of bowel or bladder incontinence, no saddle anesthesia All other systems reviewed and are negative [facility] Past Medical History Attestation statement: The following information was validated with the patient. Source: old records reviewed Medical History HTN (hypertension) Surgical History Hx of colonoscopy Hx of tonsillectomy Hx of cystoscopy Social History Social History Alcohol intake: current Alcohol intake frequency: holidays/special occasions only Patient Tobacco Use Status: Never used Tobacco Physical Exam Vital Signs: Vital Signs: Last Vital Signs Temp 97.6 F 08/16/24 16:04 Pulse 72 08/16/24 16:04 Resp 18 08/16/24 16:04 BP 125/87 08/16/24 16:04 Pulse Ox 96 08/16/24 16:04 O2 Del Method Room Air 08/16/24 16:04 O2 Flow Rate 2 08/16/24 08:06 Oxygen Flow Rate 2 08/16/24 07:23 BMI result Body Mass Index 33.4 Appearance: Alert. Oriented X3. No acute distress. Eyes: Pupils equal, round and reactive to light. ENT: Pharynx normal. contusion posterior occiput Neck: Normal inspection. Neck supple. CVS: Normal heart rate and rhythm. Pulses normal. Respiratory: No respiratory distress. Breath sounds normal. Abdomen: Soft and non-tender. Back: ttp along lumbar spine area and R lower flank hematoma Skin: Skin warm and dry. Normal skin color. Normal skin turgor. Extremities: No lower extremity edema. Neuro: Oriented X 3. No motor deficit. No sensory deficit. LE NV intact Course Course Course Narrative: discussed with Radiology they would recommend MRI of abdomen will try to get study today IV ativan for spasm ordered Medications Administered Discontinued Medications Generic Name Dose Route Start Last Admin Trade Name Peri PRN Reason Stop Dose Admin Gadobutrol 10 ml 08/16/24 15:20 08/16/24 15:20 Gadobutrol 10 Ml Vial IVPUSH 08/16/24 15:21 10 ml ONCE ONE Administration Hydromorphone HCl 1 mg 08/16/24 07:23 08/16/24 10:10 Hydromorphone Hcl 1 Mg/Ml Syringe IVPUSH 08/16/24 07:24 Not Given ONCE ONE Protocol Sodium Chloride 1,000 mls @ 999 mls/hr 08/16/24 10:45 08/16/24 12:59 Ns IV 08/16/24 11:45 Infused .Q1H1M ONE Infusion Lorazepam 1 mg 08/16/24 10:02 08/16/24 10:10 Lorazepam 2 Mg/Ml Vial IVPUSH 08/16/24 10:03 1 mg STAT STA Administration Ondansetron HCl 4 mg 08/16/24 07:31 08/16/24 07:38 Ondansetron Hcl 4 Mg/2 Ml Vial IVPUSH 08/16/24 07:32 4 mg ONCE ONE Administration Medical Decision Making Medical Decision Making [facility] Narrative: 58 yo male with PMH of HTN, renal cysts, ureteral stent with prior intervention, no blood thinners here with c/o low back pain and hematoma along with head injury s/p fall 2 days ago. At this time no cauda equina symptoms he is NV intact will obtain CT head/cspine along with CT abd given R flank hematoma. I have ordered IV pain medications. Possible contusion, fracture, strain, spasm. Blood in urine possibly related to fall vs longstanding renal colic issues Differential Diagnosis Differential Diagnoses: The differential diagnosis associated with the presentation includes strain, contusion, fracture, trauma Admission/Observation Consideration of admission/observation: Escalation of care including admission/observation considered patient wants to go home pending MRI no need to stay for splenic lesion MRI signed out to Dr. Nicholas pending MRI Lab Data [facility] Lab Attestation statement: I reviewed the patient's lab results. 08/16/24 07:40 08/16/24 07:40 Labs: Lab Results 12/23/24 12/23/24 Range/Units 07:40 14:20 WBC 7.1 (4.8-10.8) X10*3/uL RBC 5.01 (4.60-5.80) X10*6/uL Hgb 15.3 (14.0-18.0) g/dl Hct 42.6 (42.0-52.0) % MCV 85.0 (80.0-98.0) fL MCH 30.5 (27.0-33.0) pg MCHC 35.9 (31.0-36.0) g/dl RDW 12.8 (11.0-16.0) % Plt Count 286 (160-400) X10*3/uL MPV 8.9 L (9.4-12.4) fL Immature Gran % (Auto) 0.4 (0.0-0.4) % Neut % (Auto) 54.2 (45-73) % Lymph % (Auto) 29.7 (20-40) % [place] % (Auto) 9.9 (2-11) % Eos % (Auto) 5.1 H (0-4) % Baso % (Auto) 0.7 (0-2) % Lymph # (Auto) 2.1 (1.2-4.9) X10*3/uL [place] # (Auto) 0.7 (0.1-1.2) X10*3/uL Eos # (Auto) 0.4 (0.0-0.4) X10*3/uL Baso # (Auto) 0.1 (0.0-0.2) X10*3/uL Abs Immat Gran (auto) 0.03 (0.00-0.03) X10*3/uL Absolute Neuts (auto) 3.8 (2.0-8.3) x10*3/uL Absolute Nucleated RBC 0.000 (0.0-0.012) X10*3/uL Nucleated RBC % (auto) 0.0 (0.0-0.2) /100WBC PT 11.5 (10.9-12.4) SEC INR 1.0 (0.9-1.1) Sodium 139 (135-145) mmol/L Potassium 4.2 (3.3-5.1) mmol/L Chloride 107 (96-108) mmol/L Carbon Dioxide 23 (22-29) mmol/L Anion Gap 13 (12-20) BUN 25 H (9-16) mg/dL Creatinine 0.99 (0.5-1.4) mg/dL Estim Creat Clear Calc 91.9 Estimated GFR > 60 Random Glucose 203 H (60-115) mg/dL Calcium 9.0 D (8.4-10.2) mg/dL Magnesium 1.9 (1.6-2.6) mg/dL Total Bilirubin 0.4 (0.0-1.0) mg/dL Direct Bilirubin 0.2 (0.0-0.5) mg/dL AST 47 H (5-37) U/L ALT 58 H (0-40) U/L Alkaline Phosphatase 89 (39-117) U/L Total Protein 7.2 (6.5-8.0) g/dL Albumin 4.3 (3.5-5.0) g/dL Lipase 15 (8-78) U/L Urine Color Yellow Urine Appearance Clear Urine pH 6.0 (5.0-9.0) Ur Specific [place] >= 1.030 H (1.005-1.025) Urine Protein Negative (Neg-Trace) mg/dL Urine Glucose (UA) Negative (Negative) mg/dL Urine Ketones Negative (Negative) mg/dL Urine Blood Negative (Negative) Urine Nitrite Negative (Negative) Ur Leukocyte Esterase Negative (Negative) Independent Interpretation I performed an independent interpretation of an: CT Scan (no trauma) Radiology Impression Discussion of test interpretation with radiology: I have reviewed the radiologist's reading. Independent Historian Clinical information obtained from an independent historian. History obtained from or confirmed by: EMS External Record Review External record reviewed: Inpatient record and Outpatient record Prescription Management I considered prescription management with: Pain Medication and Other Discharge Plan Discharge Clinical Impression: Spasm of back muscles Contusion Qualifiers: Encounter type: initial encounter Contusion area: lower back Qualified Code(s): S30.0XXA - Contusion of lower back and pelvis, initial encounter Patient Disposition: Still a Patient Instructions: Contusion in Adults (ED), Back Pain (ED) Additional Instructions: return for any worsening symptoms or concerns CT scan no trauma, head CT scan low lying tonsils please follow up with your doctor CT abdomen/pelvis - no signs of active bleeding or trauma rest, stay hydrated, take a stool softener while on meds - colace if you get constipated take senna can use heat or ice return for numbness, weakness, severe pain, dizziness, loss of control of bowel or bladder Prescriptions: New diazepam [Valium] 5 mg tablet 5 mg PO TID PRN (Reason: muscle spasm) Qty: 10 0RF Rx Instructions: partial fill is okay morphine 15 mg tablet 15 mg PO Q6H PRN (Reason: pain) Qty: 14 0RF Rx Instructions: Partial Fill upon patient request. No Action pyridoxine (vitamin B6) 100 mg tablet 100 mg PO DAILY 90 Days Qty: 90 1RF lisinopril 10 mg tablet 10 mg PO DAILY omeprazole 20 mg capsule,delayed release(DR/EC) 20 mg PO DAILY tamsulosin [Flomax] 0.4 mg capsule 0.4 mg PO DAILY PRN (Reason: To help pass kidney stones) Qty: 21 0RF Stand Alone Forms: Work/School Release Print Language: [place]
[2024-08-16] MEDS: ondansetron HCL 4 MG/2 ML VIAL IVPUSH (07:38)
[2024-08-16 07:43] LABS: MANUAL DIFF FLAG NO
[2024-08-16 07:45] LABS: Basophils Absolute Auto 0.1 X10*3/uL (0.0-0.2); Basophils Percent Auto 0.7 % (0-2); Eosinophils Absolute Auto 0.4 X10*3/uL (0.0-0.4); Eosinophils Percent Auto 5.1 % (0-4); Hematocrit 42.6 % (42.0-52.0); Hemoglobin 15.3 g/dl (14.0-18.0); Imm Gran Abs Auto 0.03 X10*3/uL (0.00-0.03); Imm Gran Pct Auto 0.4 % (0.0-0.4); Lymphocytes Absolute Auto 2.1 X10*3/uL (1.2-4.9); Lymphocytes Percent Auto 29.7 % (20-40); Mean Corpuscular HGB Conc 35.9 g/dl (31.0-36.0); Mean Corpuscular Hemoglobin 30.5 pg (27.0-33.0); Mean Platelet Volume 8.9 fL (9.4-12.4); Monocytes Absolute Auto 0.7 X10*3/uL (0.1-1.2); Monocytes Percent Auto 9.9 % (2-11); Neutrophils Absolute Auto 3.8 x10*3/uL (2.0-8.3); Neutrophils Percent Auto 54.2 % (45-73); Platelet Count 286 X10*3/uL (160-400); Red Blood Count 5.01 X10*6/uL (4.60-5.80); Red Cell Distribution Width 12.8 % (11.0-16.0); White Blood Count 7.1 X10*3/uL (4.8-10.8)
[2024-08-16 07:50] LABS: Prothrombin Time 11.5 SEC (10.9-12.4)
[2024-08-16 08:07] LABS: Albumin Level 4.3 g/dL (3.5-5.0); Anion Gap 13 (12-20); Aspartate Amino Transferase 47 U/L (5-37); Bilirubin Direct 0.2 mg/dL (0.0-0.5); Bilirubin Total 0.4 mg/dL (0.0-1.0); Blood Urea Nitrogen 25 mg/dL (9-16); Carbon Dioxide 23 mmol/L (22-29); Chloride 107 mmol/L (96-108); Creatinine Clr Calc Pharmacy 91.9; Estimated Glomerular Filt Rate > 60; Glucose Random 203 mg/dL (60-115); Lipase 15 U/L (8-78); Magnesium 1.9 mg/dL (1.6-2.6); Potassium 4.2 mmol/L (3.3-5.1); Sodium 139 mmol/L (135-145); Total Protein 7.2 g/dL (6.5-8.0)
[2024-08-16] MEDS: LORazepam 2 MG/ML VIAL 1 MG IVPUSH (10:10)
[2024-08-16 11:25] LABS: Alanine Aminotransferase 58 U/L (0-40); Alkaline Phosphatase 89 U/L (39-117)
[2024-08-16] MEDS: 0.9 % Sodium Chloride 1,000 ML 999 ML IV (11:50)
--- NOTE | 2024-08-16 13:19 | PC.NURSE ---
pt awaiting MRI - plan for scan at 1415.
[2024-08-16 14:53] LABS: Appearance Urine Clear; Color Urine Yellow; Glucose Urine UA Negative (Negative); Leukocyte Esterase Urine Negative (Negative); Nitrite Urine Negative (Negative); Specific Gravity - Urine >= 1.030 (1.005-1.025); Urine Blood Negative (Negative); Urine Ketones Negative (Negative); Urine Protein Negative (Neg-Trace)
[2024-08-16] MEDS: gadobutroL 10 ML VIAL IVPUSH (15:20)
[2024-08-16] MEDS: Morphine Sulfate Immed Release 15 MG TABLET 30 MG PO (17:43)
== END 2024-08-16 17:54 | disposition home or self-care (01) ==
PROVIDERS: Emergency Medicine; Emergency Provider Emergency Medicine; PCP Internal Medicine
DX: M62.830 Muscle spasm of back (principal); S30.0XXA Contusion of lower back and pelvis, initial encounter; W00.1XXA Fall from stairs and steps due to ice and snow, initial encounter; Y93.89 Activity, other specified; Y92.018 Other place in single-family (private) house as the place of occurrence of the external cause; Y99.9 Unspecified external cause status; R93.5 Abnormal findings on diagnostic imaging of other abdominal regions, including retroperitoneum
CPT/HCPCS: 36415; 70450; 71045; 72125; 74177; 74183; 80048; 80076; 81003; 83690; 83735; 85025; 85610; 96361; 96374; 96375; 99285; A9585; J2060; J2405

== ENCOUNTER → 2024-08-16 07:23 | Outpatient (BNV) | payer BC, SELFPAY | PROVIDERS: Emergency Provider Emergency Medicine; PCP Internal Medicine; Visit Provider Radiology Diagnostic Radiology | DX: D73.89 Other diseases of spleen (principal); N20.0 Calculus of kidney; K57.32 Diverticulitis of large intestine without perforation or abscess without bleeding; R16.0 Hepatomegaly, not elsewhere classified; M47.892 Other spondylosis, cervical region; R90.89 Other abnormal findings on diagnostic imaging of central nervous system | CPT/HCPCS: 70450; 72125; 74177 ==

== ENCOUNTER → 2024-08-20 10:40 | Outpatient (BNVA) | payer OTHER, SELFPAY | PROVIDERS: PCP Internal Medicine; Visit Provider Internal Medicine | DX: S67.22XA Crushing injury of left hand, initial encounter (principal); X50.0XXA Overexertion from strenuous movement or load, initial encounter | CPT/HCPCS: 99213 ==

== ENCOUNTER 2024-09-02 12:40 | Outpatient (AMB) | payer BC, SELFPAY ==
--- NOTE | 2024-09-02 13:11 | MHC.OFFVIS ---
Vital Signs 09/02/24 13:17 Height 5 ft 8 in Weight 220 lb BMI 33.4 BP 153/78 H Blood Pressure Location Rt brachial Position Sitting Pulse 78 Intake Visit Reasons: Splenic lesion Intake Note: This patient presents for Splenic lesion assessment. Pt c/o; no concerns. Normal BM. States lesion might be related to recent fall in July. 08/16/2024: Abd MRI 08/16/2024:Abd/pelvis CT Supervisor Uranium Processing Required: No Accompanied by: spouse Lilly Allergies No Known Allergies [No Known Allergies*] Allergy (Verified 09/02/24 13:15) HPI HPI Splenic lesion: Details: 58-year-old male referred for a splenic lesion. He had fallen outside his house after slipping on black ice last 08/12/2024. He says he was fine for the 1st couple of days but on the 3rd day started to have some cramping of his lower back so he therefore went to the ER at that time and a trauma workup included a CT scan of the abdomen. This showed a incidental 4.6 cm isointense to mildly hyperintense lobulated lesion at the anterior inferior spleen suggestive of a hemangioma. He denies any abdominal complaints He had a CAT scan in August last year for a right renal cyst and there was no mass in the spleen that was seen at that time. He has good GI functions and denies any systemic symptoms. [facility] Medical History Splenic mass HTN (hypertension) Surgical History Hx of colonoscopy Hx of tonsillectomy Hx of cystoscopy Social History Alcohol intake: current Alcohol intake frequency: holidays/special occasions only Patient Tobacco Use Status: Never used Tobacco Review of Systems Const Denies chills and Denies fever(s) Card Denies chest pain, Denies dyspnea and Denies dyspnea on exertion Resp Denies cough, Denies dyspnea and Denies dyspnea on exertion GI Denies hematochezia and Denies change in bowel habits Denies hematuria and Denies difficulty urinating Musc Denies back pain and Denies limited range of motion Neuro Denies focal weakness and Denies convulsions Psych Denies depression and Denies mood swings Physical Exam Vital Signs: Last Vital Signs Pulse 78 09/02/24 13:17 BP 153/78 H 09/02/24 13:17 BMI result Body Mass Index 33.4 Const General: comfortable and no acute distress Orientation/consciousness: patient oriented x3 Neck Neck: Yes no lymphadenopathy Resp Auscultation: clear to auscultation bilaterally Cardio Rhythm: regular rhythm GI Palpation (GI): Soft to palpation, nontender and no guarding Neuro General: patient oriented x3 Assessment & Plan Assessment & Plan (1) Splenic mass: Code(s): R16.1 - Splenomegaly, not elsewhere classified Category: Medical Plan: He has a splenic mass seen on MRI and CT scan as described above. This seems to be suggestive of a hemangioma. I we will review this with the radiologist to see if this is amenable to CT biopsy. Another option is to do a follow up imaging in about 3 months to see how this is working . I explained the above with the patient and his . I will call him within the next week or 2 to discuss the next step in his care. Coding Level of Care Code New Pt Level 3 (43088) Diagnoses Splenic mass R16.1
[2024-09-02 13:17] VITALS: BP 153/78; PULSE 78; BMI 33.4
== END 2024-09-02 13:51 | disposition home or self-care (01) ==
PROVIDERS: PCP Internal Medicine; Referring Provider Internal Medicine; Visit Provider Surgery
DX: R16.1 Splenomegaly, not elsewhere classified (principal)
CPT/HCPCS: 99203

== ENCOUNTER → 2024-10-26 09:00 | Day surgery (SDC) | payer BC, SELFPAY ==
--- OUTSIDE RECORDS SUMMARY | 2024-10-13 11:47 | XMS_ITS ---
Author Organization Cortes Hernandez DO [facility] Address [address], [place] [id number] Care Team Providers Care Geothermal Field Technician Name Role Phone Cortes Hernandez Primary Care Provider REASON FOR REFERRAL Reason Splenic mass Diagnosis 1 Splenic mass (R16.1) Referral Organization Cortes Nieves FACP Referring Provider First Name Cortes Referring Provider Last Name Mary Referring Provider Speciality Internal M edicine Referred Provider Homer Pal Referred Provider Specialty General Surg lauri Referral Priority Routine Reason Splenic mass Diagnosis 1 Splenic mass (R16.1) Referral Organization Cortes Nieves FACP Referring Provider First Name Cortes Referring Provider Last Name Mary Referring Provider Speciality Internal M edicine Referred Provider Cortes Feliciano Referred Provider Specialty Gastroentero logy Referral Priority Routine REASON FOR VISIT Message Encounters Encounter Location Date Provider Diagnosis Cortes Hernandez DO [address] [phone] 08/17/2024 Cotres Hernandez Splenic mass R16.1 ASSESSMENTS Encounter Date Diagnosis Assessment Notes Treatment Notes Treatment Clinical Notes 08/17/2024 Splenic mass (ICD-10 - R16.1) PLAN OF TREATMENT Referrals Referral Date Details Splenic mass, Lindsey Pal Splenic mass, Cortes Feliciano Consultation Request Notes Referral Date Referring Provider Referred Provider Not es 08/17/2024 Cortes Hernandez Francis Splenic mass 08/19/2024 Cortes Hernandez Robert Splenic mas s
--- OUTSIDE RECORDS SUMMARY | 2024-10-13 11:47 | XMS_ITS ---
Author Organization Cortes Hernandez DO, FACP Address [address] [place] [id number] Care Team Providers Care Microwave Remote Sensing Scientist Name Role Phone Cortes Hernandez Primary Care Provider [phone] RESULTS Component Value Reference Range Notes C Reactive Protein Reviewed date:06/17/2024 12:28:54 PM Interpretation:Normal Performing Lab:[facility], [address] [place] [phone] Notes/Report: C Reactive Protein 0.13 < or = 0.50 mg/dL Babesia IgG/IgM Reviewed date:06/24/2024 09:39:38 AM Interpretation:Negative Performing Lab:[address] [phone] Notes/Report: Babesia IgG <1:64 <1:64 titer This test was developed and its analytical performance characteristics have been determined by [facility]. It has not been cleared or approved by the FDA. This assay has been validated pursuant to the CLIA regulations and is used for clinical purposes. Babesia IgM <1:20 <1:20 titer This test was developed and its analytical performance characteristics have been determined by [facility]. It has not been cleared or approved by the FDA. This assay has been validated pursuant to the CLIA regulations and is used for clinical purposes. Babesia Interpretation SEE NOTE ANTIBODY NOT DETECTED Elevated antibody levels to B. microti indicate exposure to the organism. Human babesiosis infection is transmitted by the bite of an infected Ixodes tick or less frequently from transfusion with blood from an infected donor. Definitive diagnosis is made by identifying intraerythrocytic organisms in peripheral blood. In patients with low parasitemia, antibody detection by IFA is recommended. IgG levels greater than or equal to 1:1024 can be detected in acute phase patients with parasites in blood smears. The IFA assay can be used as a seroepidemiologic tool to study the frequency and distribution of B. microti in endemic areas especially in persons with mixed infections also involving Borrelia burgdorferi. THIS TEST WAS PERFORMED AT: [facility] [address] [place] [phone] VANDANA ERVIN MD Lyme IgG/IgM w/reflex to WB Reviewed date:06/19/2024 02:48:55 PM Interpretation:Negative Performing Lab:[facility], [address] [place] [phone] Notes/Report: Lyme Abs Screen <0.90 Index Interpretation ----- < 0.90 Negative 0.90-1.09 Equivocal > 1.09 Positive As recommended by the Food and Drug Administration (FDA), all samples with positive or equivocal results in a Borrelia burgdorferi antibody screen will be tested using a blot method. Positive or equivocal screening test results should not be interpreted as truly positive until verified as such using a supplemental assay (e.g., B. burgdorferi blot). The screening test and/or blot for B. burgdorferi antibodies may be falsely negative in early stages of Lyme disease, including the period when erythema migrans is apparent. THIS TEST WAS PERFORMED AT: [facility] [address] [place] [phone] VANDANA ERVIN MD Lyme Blot TNP REASON FOR VISIT Message Encounters Encounter Location Date Provider Diagnosis Cortes Hernandez DO, [address] [id number] 06/15/2024 Cortes Hernandez Pain in joints M25.5 0 and Tick bite, unspecified site, initial encounter W57.XXXA ASSESSMENTS Encounter Date Diagnosis Assessment Notes Treatment Notes Treatment Clinical Notes 06/15/2024 Pain in joints (ICD-10 - M25.50) 06/15/2024 Tick bite, unspecified site, initial encounter (ICD-10 - W57.XXXA) PLAN OF TREATMENT Pending Test Test Name Order Date CBC w DIFF 06/15/2024
--- OUTSIDE RECORDS SUMMARY | 2024-10-13 11:47 | XMS_ITS | Patient Health Record ---
Author Organization [facility] Address [address] [place] [address] Care Team Providers Care Radiation Monitor Name Role Phone Mary (RETIRED) Cortes MARKS Primary Care Provid er Unavailable Cortes Feliciano Unavailable [phone] REASON FOR REFERRAL No Information MEDICATIONS Medication SIG (Take, Route, Frequency, Duration) Notes Start Date End Date Status Lisinopril started in 08/2015 A ctive Omeprazole 20 MG TAKE 1 CAPSULE BY [facility] EVERY DAY for 90 Active IMMUNIZATIONS Vaccine Route Administration Date Status Comme nts Influenza Unknown 05/25/2019 Administered SOCIAL HISTORY Sex Assigned At : Social History Observation Description Sex Assigned At Unknown PROBLEMS Problem Type ICD Code Onset Dates Problem Status W/U Status Risk SNOMED Code Notes Problem Encounter for screening for malignant neoplasm of colon (Z12.11) Active confirmed 524322584 Problem Encounter for screening for malignant neoplasm of rectum (Z12.12) Active confirmed Screening for malignant neoplasm of rectum (249384135) Problem Throat pain (R07.0) Active confirmed 16 8588704 Problem Gastroesophageal reflux disease without esophagitis (K21.9) Active confirmed 561594574 Problem Globus sensation (R09.89) Active confirmed 552163873 Problem Hiatal hernia (K44.9) Active confirmed 14748346 PLAN OF TREATMENT Future Test Test Name Order Date UPPER GI ENDOSCOPY 09/19/2015 COLONOSCOPY 09/19/2015 Next Appt Details Provider Name:Cortes Feliciano , 12/08/2024 03:20:00 PM, [address], [address], [place], [address], Insurance Providers Payer Name Payer Address Payer Phone Subscriber Number Group Number Insured Name Patient Relationship to Insured Coverage Start Date Coverage End Date [facility] [employer] [address] [place] [address] [phone] [id number] CRISTÓBALJACKSON Self - patient is the insured MEDICAL (GENERAL) HISTORY Medical History History ICD Code Hypertension Denies [place],DM,CVA,Lung disease,Renal dise ase Neg. cardiac cath Neg. screening colonoscopy in 11/2015 GERD/Globus--EGD in 11/2015 w ith a small to mod-sized HH--no esophagitis, no Leon's, benign gastric polyp; uses omeprazole with relief of his symptoms Surgical History Surgery Date(Month/Year) Left knee 2005
--- OUTSIDE RECORDS SUMMARY | 2024-10-13 11:48 | XMS_ITS ---
Author Organization Cortes Hernandez DO, FACP Address [address] [place], [place] [id number] Care Team Providers Care Tutoring Clinician Name Role Phone Cortes Hernandez Primary Care Provider [phone] REASON FOR VISIT Message Encounters Encounter Location Date Provider Diagnosis Cortes Hernandez DO, FACP [address] [place], [place] [phone] 06/23/2024 Cortes Hernandez PLAN OF TREATMENT No Information
--- OUTSIDE RECORDS SUMMARY | 2024-10-13 11:48 | XMS_ITS | Patient Health Record ---
Author Organization Sarkis Hernandez MD Address [address] [place], [place] [phone] Care Team Providers Care Stylist Apprentice Name Role Phone Mary Cortes MARKS Primary Care Provider Unavail able Sarkis Hernandez Unavailable [phone] Allergies No Known Allergies Reason For Referral No Information Medications Medication SIG (Take, Route, Fr equency, Duration) Notes Start Date End Date Status Lisinopril 5 MG 1 tablet Orally Once a day for 30 day(s) Active NyQuil Cold & Flu Ac tive PriLOSEC OTC 20 MG 1 tablet 30 minutes before morning meal Orally Once a day for 30 day(s) Active Zithromax Z-Todd 250 MG 2 tablet on the f irst day, then 1 tablet daily for 4 days Orally Once a day for 5 day(s) 10/04/2022 Active Problems Problem Type SNOMED Code ICD Code Onset Dates Problem Status W/U Status Risk Notes Problem [id number] Hypertension, unspecified type (I10) Active confirmed Plan Of Treatment No Information Insurance Providers Payer Name Payer Address Payer Phone Subscriber Number Group Number Insured Name Patient Relationship to Insured Coverage Start Date Coverage End Date [employer] [address] [place], [place] [id number] Ede AMBROCIO Self - patient is the insured
[2024-10-26] VITALS (23 sets, daily range): BP systolic 97–137; BP diastolic 52–86; PULSE 52–70; RESP 12–21; TEMP 36.1–36.3; O2SAT 96–99
--- NOTE | ~2024-10-26 | US_ITS ---
59-year-old man with an isolated large splenic mass. PROCEDURES: 1. Limited preprocedure CT of the abdomen. Permanent images saved in PACS. 2. Ultrasound-guided biopsy of the splenic mass.. 3. Limited postprocedure CT of the abdomen. Permanent images saved in PACS. CLINICIANS: William Knowles PA-C MEDICATIONS: -Versed 1.5 mg, Fentanyl 75 mcg, and lidocaine 1% 10 mL SQ -Antibiotics: None -For additional details, please see nursing flowsheet. COMPLICATIONS: None ESTIMATED BLOOD LOSS: < 5 ml CONTRAST: None SPECIMENS: 4 x 18 g cores were placed in saline MODERATE SEDATION TIME: 30 min PROCEDURE NOTE: The procedure, risks, benefits, and alternatives were carefully explained to the patient and written informed consent was obtained. The patient was placed in the right lateral decubitus position on the CT table. A timeout was performed. A limited CT of the abdomen was performed to localize the splenic mass and choose appropriate needle entry and trajectory. Due to respiratory variations, it was difficult to localize the mass, therefore an ultrasound machine was brought to the procedure room. The patient was prepped and draped in usual sterile fashion. The skin and deeper soft tissues were anesthetized with lidocaine. Under ultrasound guidance, a 17 gauge trocar needle was advanced into normal-appearing spleen and into the mass. An 18 gauge biopsy device was inserted through the trocar needle advanced into the lesion. A total of 4, 18 gauge cores were performed. The specimens were sent for pathology and flow cytometry. 2 Gelfoam torpedoes were administered into the biopsy tract and at the level of the splenic capsule. The needle was removed. A postprocedure CT scan was performed, which did not demonstrate any perisplenic hemorrhage, free air, or pneumothorax. A dry dressing was applied and secured with Tegaderm. There were no immediate complications. The patient was stable after the procedure and was transferred to the post anesthesia care unit. The procedure was done under moderate sedation with a dedicated nurse for monitoring of vital signs. US/US guide needle placement Impression: Image guided splenic mass biopsy. This procedure was performed by William Knowles PA-C and supervised by Dr. Batista. Electronically signed by: Jah Batista MD 10/26/2024 03:43 PM [facility]
--- NOTE | 2024-10-26 10:35 | MHC.SHP ---
Pre-Procedural Eval Section A - 24 Hr Update-Section A only Date of Service: 10/26/24 Section B - Complete if H&P > 30 days Chief Complaint: splenic mass Details of Present Illness: 59 y/o man who presents with a splenic mass. Relevant Family History (Specify if Yes): No Relevant Social History: None Present Medications: see Short Stay Collaborative assessment Medical History: No relevant PMH History of Previous Operations: No relevant previous surgery Allergies: Allergies Allergy/AdvReac Type Severity Reaction Status Date / Time No Known Allergies Allergy Verified 10/26/24 09:45 [No Known Allergies*] Review of Systems Sugical H&P ROS: Negative: Constitution, Cardiovascular, Respiratory and Gastrointestinal Exam Surgical H&P Exam: Normal: Lungs, Normal: Abdomen, Normal: Skin and Normal: Neurological and Significant Findings: Heart (bradycardic, regular) Plan 59 y/o man with a splenic mass -Image guided splenic mass biopsy Time Spent With Patient Time: Total time managing care of this patient today ____ minutes.
[2024-10-26 10:54] LABS: MANUAL DIFF FLAG NO
[2024-10-26 10:57] LABS: Basophils Percent Auto 0.9 % (0-2); Eosinophils Absolute Auto 0.1 X10*3/uL (0.0-0.4); Eosinophils Percent Auto 3.3 % (0-4); Hematocrit 42.8 % (42.0-52.0); Hemoglobin 14.8 g/dl (14.0-18.0); Imm Gran Abs Auto 0.01 X10*3/uL (0.00-0.03); Imm Gran Pct Auto 0.2 % (0.0-0.4); Lymphocytes Absolute Auto 1.4 X10*3/uL (1.2-4.9); Lymphocytes Percent Auto 33.9 % (20-40); Mean Corpuscular HGB Conc 34.6 g/dl (31.0-36.0); Mean Corpuscular Volume 86.6 fL (80.0-98.0); Mean Platelet Volume 9.2 fL (9.4-12.4); Monocytes Absolute Auto 0.5 X10*3/uL (0.1-1.2); Monocytes Percent Auto 11.1 % (2-11); Neutrophils Absolute Auto 2.2 x10*3/uL (2.0-8.3); Neutrophils Percent Auto 50.6 % (45-73); Platelet Count 263 X10*3/uL (160-400); Red Blood Count 4.94 X10*6/uL (4.60-5.80); White Blood Count 4.3 X10*3/uL (4.8-10.8)
[2024-10-26 11:02] LABS: Prothrombin Time 11.4 SEC (10.9-12.4)
[2024-10-26 11:04] LABS: Partial Thromboplastin Time 33.9 SEC (26.0-36.8)
[2024-10-26] MEDS: Midazolam HCl 2 MG/2 ML VIAL 1 MG IVPUSH ×2 (11:15→11:27)
[2024-10-26] MEDS: fentaNYL citrate/PF 100 MCG/2 ML VIAL 50 MCG IVPUSH ×2 (11:15→11:27)
[2024-10-26] MEDS: Lidocaine HCl 1 % MPF 30 ML VIAL 10 ML SUBCUT (11:58)
== END | disposition home or self-care (01) ==
PROVIDERS: Pathology Anatomic Pathology & Clinical Pathology; Physician Assistant Surgical; Visit Provider Surgery
DX: C85.17 Unspecified B-cell lymphoma, spleen (principal); R16.1 Splenomegaly, not elsewhere classified; R89.6 Abnormal cytological findings in specimens from other organs, systems and tissues; R06.9 Unspecified abnormalities of breathing; I10 Essential (primary) hypertension; Z91.81 History of falling
CPT/HCPCS: 36415; 49180; 76942; 77012; 85025; 85610; 85730; 86850; 86900; 86901; 88184; 88185; 88300; 88305; 88341; 88342; 88365; 88374; 99152; 99153; J2003; J2250; J2310; J3010

== ENCOUNTER → 2024-10-26 11:02 | Outpatient (BNV) | payer BC, SELFPAY | PROVIDERS: Visit Provider Physician Assistant Surgical | DX: D73.9 Disease of spleen, unspecified (principal) | CPT/HCPCS: 49180; 77012 ==

== ENCOUNTER 2024-11-08 09:52 | Outpatient (REF) | payer BC, SELFPAY ==
--- NOTE | ~2024-11-08 | US_ITS ---
CLINICAL HISTORY: N28.1 - Cyst of kidney, acquired US Renal Comparison: CT/REG/SR - CT ABDOMEN WO/W IV CON - 09/08/23 08:12 EST Findings: Right kidney normal size and echotexture, 11 cm length. Simple appearing upper pole 3.5 cm cyst. Left kidney normal size and echotexture, 11.6 cm length. Stable nonobstructing midpole stone measured at 3.2 mm. No hydronephrosis of either kidney. Normal color Doppler IMPRESSION: Stable right renal cyst and nonobstructing stone left kidney. This document has been electronically signed by: Yunior Diallo MD on 11/09/2024 07:03:01
--- OUTSIDE RECORDS SUMMARY | 2024-11-08 10:51 | XMS_ITS | Patient Health Record ---
Author Organization [facility] Address [address] [place] [address] Care Team Providers Care Concrete Form Setter And Finisher Name Role Phone Mary (RETIRED) Cortes MARKS Primary Care Provid er Unavailable Cortes Feliciano Unavailable [phone] Reason For Referral No Information Medications Medication SIG (Take, Route, Frequency, Duration) Notes Start Date End Date Status Lisinopril started in 08/2015 A ctive Omeprazole 20 MG TAKE 1 CAPSULE BY [facility] EVERY DAY for 90 Active Immunizations Vaccine Route Administration Date Status Comme nts Influenza Unknown 05/25/2019 Administered Problems Problem Type SNOMED Code ICD Code Onset Dates Problem Status W/U Status Risk Notes Problem 137772954 Encounter for screening for malignant neoplasm of colon (Z12.11) Active confirmed Problem Screening for malignant neoplasm of rectum (420308832) Encounter for screening for malignant neoplasm of rectum (Z12.12) Active confirmed Problem 680611689 Gastroesophageal reflux disease without esophagitis (K21.9) Active confirmed Problem 29898907 Hiatal hernia (K44.9) Active confirmed Problem 822732381 Throat pain (R07.0) Active confirmed Problem 025234332 Globus sensation (R09.89) Active confirmed Plan Of Treatment Future Test Test Name Order Date UPPER GI ENDOSCOPY 09/19/2015 COLONOSCOPY 09/19/2015 Next Appt Details Provider Name:Cortes Feliciano , 12/08/2024 03:20:00 PM, [address], [address], [place], [address], Insurance Providers Payer Name Payer Address Payer Phone Subscriber Number Group Number Insured Name Patient Relationship to Insured Coverage Start Date Coverage End Date [facility] [address] [place] [address] [phone] [id number] JACKSON AMBROCIO Self - patient is the insured Medical (General) History Medical History History ICD Code Hypertension Denies [place],DM,CVA,Lung disease,Renal dise ase Neg. cardiac cath Neg. screening colonoscopy in 11/2015 GERD/Globus--EGD in 11/2015 w ith a small to mod-sized HH--no esophagitis, no Leon's, benign gastric polyp; uses omeprazole with relief of his symptoms Surgical History Surgery Date(Month/Year) Left knee 2005
--- OUTSIDE RECORDS SUMMARY | 2024-11-08 10:51 | XMS_ITS | Patient Health Record ---
Author Organization Sarkis Hernandez MD Address [address] [place], [place] [id number] Care Team Providers Care Assembler Installer General Name Role Phone Mary Cortes MARKS Primary Care Provider Unavail able Sarkis Hernandez Unavailable [phone] Allergies No Known Allergies Reason For Referral [...] Problem Status W/U Status Risk Notes Problem 72139854 Hypertension, unspecified type (I10) Active confirmed Plan Of Treatment No Information Insurance Providers Payer Name Payer Address Payer Phone Subscriber Number Group Number Insured Name Patient Relationship to Insured Coverage Start Date Coverage End Date [employer] [address] [place], [place] [phone] [id number] Ede AMBROCIO Self - patient is the insured
== END 2024-11-08 09:53 | disposition home or self-care (01) ==
LOC: HO.HMGCX 09:52
PROVIDERS: PCP Internal Medicine; Visit Provider Urology
DX: N20.0 Calculus of kidney (principal); N28.1 Cyst of kidney, acquired
CPT/HCPCS: 76775

== ENCOUNTER → 2024-11-08 10:00 | Outpatient (BNV) | payer BC, SELFPAY | PROVIDERS: PCP Internal Medicine; Visit Provider Radiology Diagnostic Radiology | DX: N28.1 Cyst of kidney, acquired (principal) | CPT/HCPCS: 76775 ==

== ENCOUNTER 2024-11-17 11:10 | Outpatient (AMB) | payer BC, SELFPAY ==
--- NOTE | 2024-11-17 11:12 | A.OFFVIS_ITS ---
Vital Signs 11/17/24 11:15 Height 5 ft 8 in Weight 219 lb 15.988 oz BMI 33.4 Respiration 18 Pulse 62 Intake Visit Reasons: CT results Intake Note: Patient is seen in office for CT scan bx results, following splenic mass. Pt c/o: here for results denies any changes CT Bx:10/26/24 Warehouse Representative Required: No Accompanied by: Family/Other Allergies No Known Allergies [No Known Allergies*] Allergy (Verified 11/17/24 11:15) Medication List - Last Reconciled 11/17/24 by Homer Pal MD lisinopril 10 mg PO DAILY omeprazole 20 mg PO DAILY pyridoxine (vitamin B6) 100 mg PO DAILY [address] results: Details: He had undergone CT biopsy of a splenic mass last 10/26/2024. This was an incidental finding on a CAT scan done when he had fallen on ice last July,. He tolerated the biopsy well. He currently denies significant complaints He is here to discuss the path report. [facility] Medical History Non-Hodgkin lymphoma in adult Lymphoma Splenic mass HTN (hypertension) Surgical History Hx of colonoscopy Hx of tonsillectomy Hx of cystoscopy Social History Alcohol intake: current Alcohol intake frequency: holidays/special occasions only Patient Tobacco Use Status: Never used Tobacco Review of Systems Const Denies chills and Denies fever(s) Card Denies chest pain, Denies dyspnea and Denies dyspnea on exertion Resp Denies cough, Denies dyspnea and Denies dyspnea on exertion GI Denies hematochezia and Denies change in bowel habits Denies hematuria and Denies difficulty urinating Musc Denies back pain and Denies limited range of motion Neuro Denies focal weakness and Denies convulsions Psych Denies depression and Denies mood swings Physical Exam Vital Signs: Last Vital Signs Pulse 62 11/17/24 11:15 Resp 18 11/17/24 11:15 BMI result Body Mass Index 33.4 Const General: comfortable and no acute distress Resp Effort & Inspection: normal respiratory effort Cardio Rate: regular rate GI Palpation (GI): Soft to palpation, not firm, nontender and no masses Assessment & Plan Assessment & Plan (1) Non-Hodgkin lymphoma in adult: Code(s): C85.90 - Non-Hodgkin lymphoma, unspecified, unspecified site Category: Medical Plan: Unfortunately, his 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 I am going to refer him to Oncology to discuss the best route in his care. He did he had that he may be interested in having an opinion in [facility]. If he does decide to go this route, we will assist him with this as well. He otherwise seems to be doing very well and denies significant complaints. I have arranged for him to be seen by Oncology. I have arranged for him to have a CAT scan of the chest as well. Orders: Orders Blood Urea Nitrogen Today C85.90 - Non-Hodgkin lymphoma, unspecified, unspecified site Creatinine Today C85.90 - Non-Hodgkin lymphoma, unspecified, unspecified site CT chest w IV con Today C85.90 - Non-Hodgkin lymphoma, unspecified, unspecified site Referrals Hematology & Oncology Referral C85.90 - Non-Hodgkin lymphoma, unspecified, unspecified site Coding Level of Care Code Est Pt Level 4 (18251) Diagnoses Non-Hodgkin lymphoma in adult C85.90
[2024-11-17 11:15] VITALS: PULSE 62; RESP 18; BMI 33.4
--- OUTSIDE RECORDS SUMMARY | 2024-11-17 13:28 | XMS_ITS | Patient Health Record ---
Author Organization Sarkis Hernandez MD Address [address] [place], [place] [address] Care Team Providers Care Oil Operator Name Role Phone Mary Cortes MARKS Primary Care Provider Unavail able Sarkis Hernandez Unavailable [phone] Allergies No Known Allergies Reason For Referral [...] Problem Status W/U Status Risk Notes Problem 18160315 Hypertension, unspecified type (I10) Active confirmed Plan Of Treatment No Information Insurance Providers Payer Name Payer Address Payer Phone Subscriber Number Group Number Insured Name Patient Relationship to Insured Coverage Start Date Coverage End Date [employer] [address] [place], [place] [id number] Ede AMBROCIO Self - patient is the insured
--- OUTSIDE RECORDS SUMMARY | 2024-11-17 13:28 | XMS_ITS | Patient Health Record ---
Author Organization [facility] Address [address] [place] [address] Care Team Providers Care Straightedge Worker Name Role Phone Mary (RETIRED) Cortes MARKS Primary Care Provid er Unavailable Cortes Feliciano Unavailable [phone] Reason For Referral No Information Medications Medication SIG (Take, Route, Frequency, Duration) Notes Start Date End Date Status Lisinopril started in 08/2015 A ctive Omeprazole 20 MG TAKE 1 CAPSULE BY [facility] EVERY DAY for 90 Active Immunizations Vaccine Route Administration Date Status Comme nts Influenza Unknown 05/25/2019 Administered Problems Problem Type SNOMED Code ICD Code Onset Dates Problem Status W/U Status Risk Notes Problem 213342814 Encounter for screening for malignant neoplasm of colon (Z12.11) Active confirmed Problem Screening for malignant neoplasm of rectum (410663577) Encounter for screening for malignant neoplasm of rectum (Z12.12) Active confirmed Problem 032945156 Gastroesophageal reflux disease without esophagitis (K21.9) Active confirmed Problem 16017273 Hiatal hernia (K44.9) Active confirmed Problem 600982237 Throat pain (R07.0) Active confirmed Problem 303002444 Globus sensation (R09.89) Active confirmed Plan Of Treatment Future Test Test Name Order Date UPPER GI ENDOSCOPY 09/19/2015 COLONOSCOPY 09/19/2015 Next Appt Details Provider Name:Cortes Feilciano , 12/08/2024 03:20:00 PM, [address], [address], [place], [address], Insurance Providers Payer Name Payer Address Payer Phone Subscriber Number Group Number Insured Name Patient Relationship to Insured Coverage Start Date Coverage End Date [facility] [address] [place] [address] [phone] [id number] JACKSON AMBROCIO Self - patient is the insured Medical (General) History Medical History History ICD Code Hypertension Denies [place],DM,CVA,Lung disease,Renal dise ase Neg. cardiac cath Neg. screening colonoscopy in 11/2015 GERD/Globus--EGD in 11/2015 w ith a small to mod-sized HH--no esophagitis, no Leon's, benign gastric polyp; uses omeprazole with relief of his symptoms Surgical History Surgery Date(Month/Year) Left knee 2005
== END 2024-11-17 11:24 | disposition home or self-care (01) ==
LOC: HO.HGS 11:10
PROVIDERS: PCP Internal Medicine; Visit Provider Surgery
DX: C85.90 Non-Hodgkin lymphoma, unspecified, unspecified site (principal)
CPT/HCPCS: 99214

== ENCOUNTER 2024-11-17 11:10 | Outpatient (REF) | payer BC, SELFPAY ==
[2024-11-17 12:27] LABS: Blood Urea Nitrogen 19 mg/dL (9-16); Estimated Glomerular Filt Rate > 60
== END 2024-11-17 11:11 | disposition home or self-care (01) ==
LOC: HO.LAB 11:10
PROVIDERS: PCP Internal Medicine; Visit Provider Surgery
DX: C85.90 Non-Hodgkin lymphoma, unspecified, unspecified site (principal)
CPT/HCPCS: 36415; 82565; 84520

== ENCOUNTER 2024-11-25 08:30 | Outpatient (AMB) | payer BC, SELFPAY ==
--- NOTE | 2024-11-25 08:31 | A.OFFVIS_ITS ---
Intake Visit Reasons: 1y/US Intake Note: Patient presents today via telehealth for a 1 year follow up Urology Meds- Vitamin B6 Allergies to Antibiotic- No Known Allergies Blood Thinner- None Ui Lead Developer Required: No Accompanied by: Self / Same As Patient Allergies No Known Allergies [No Known Allergies*] Allergy (Verified 11/25/24 08:33) HPI Comments Details: 11/25/24--History of Present Illness--The patient is a 59-year-old male presenting with nephrolithiasis follow-up. He has been monitored for kidney stones, and the current renal ultrasound results shows a stone in the left kidney that is 3-4 mm in size, remaining unchanged in size. The patient is advised on potential stone passage and management if it moves. Over the past year, the patient was diagnosed with lymphoma followed by oncology --treatment plan chemotherapy, at [facility]. Urinary Symptoms Review - Left kidney stone currently 3-4 mm in size - Stone remains unchanged in size and is positioned within the kidney - No other urinary symptoms complaints Results - -Renal Ultrasound--11/08/24-: 3-4 mm kidney stone in left kidney (Right kidney Simple upper pole 3.5 cm cyst. Left kidney stable nonobstructing midpole stone measured at 3.2 mm.) 11/27/2023--Ede is a 58-year-old male who is here to discuss 24 hour urine results. He has been followed for kidney stones. The patient had evaluation for right kidney lesion workup was consistent with a simple cyst. Last imaging CT 09/08/2023--4 mm left kidney cyst right kidney simple cyst. Discussed 24 hour urine results: Total volume 3.70 L, Calcium 130 mg; Oxalate 38 mg, Sodium 209, Citrate 674 mg. Instructed on importance of fluid intake, Low oxalate diet, low sodium diet. Plan discussed low sodium diet. Vitamin B6 (pyridoxine 100 mg daily). Discussed if patient has renal colic to use tamsulosin p.r.n. and contact the office. Follow-up in 1 year with renal ultrasound prior. 09/19/2023--Ede is a 57-year-old male who presents today to the office for a follow-up. Ede is status post ureteroscopy stone extraction and stent removal on 08/26/2023. He states he is doing well. I have reviewed the stone analysis and discussed with patient which has come back calcium oxalate dihydrate 20% and calcium oxalate monohydrate 80%. I have discussed at length diet modification to decrease risk of forming more kidney stones. I have discussed low oxalate diet and specific foods to avoid including certain green leafy vegetables, chocalate, nuts, tea, beets, rubarb; low sodium, decreased use of animal protein and the importance of hydration drinking up to 2-2.5 liters of fluids and use of adding lemon to water to increase citrate in the diet. A pamphlet is also provided today. Plan discussed 24 hour urine collection. I have reviewed CT scan results dated 09/08/2023--which was done to further evaluate right indeterminate renal mass on prior imaging. CTAP-- Right upper pole 3.7 cm renal cyst demonstrates no definite enhancement and no abnormal internal soft tissue structures, consistent with a Bosniak 1 renal cyst, requiring no follow-up. Nonobstructing 4 mm left lower pole renal stone. Previously seen proximal left ureteral stone is not visualized. 08/06/23--Here post Left ureteroscopy - review of operative note the stone had migrated into the left kidney, the stone was lasered into fragments. Left ureteral stent placed. He complains of urinary ugency every 15 - 30 min. Plan:?Ordered CT abdomen with and without contrast for further evaluation of right kidney cystic lesion. Scheduled for 09/08/2023 and KUB fu nephrolithiasis. oxybutynin 5 mg q d to bid. cont flomax until stent removed Consent obtained for cysto, left stent exchange vs removal, poss ureteroscopy laser. 07/25/2023? He was seen ED on 07/24/2023 with left flank pain.? I reviewed the CAT scan results from 07/24/2023 revealed 9 mm left proximal ureteral stone with mild hydronephrosis; 4 mm non obstructing stone in the lower pole of the left kidney and a 2.8 cm low density lesion in the upper pole of the right kidney which is indeterminate. He denies any hematuria at this time. [facility] Medical History Non-Hodgkin lymphoma in adult Lymphoma Splenic mass HTN (hypertension) Surgical History Hx of colonoscopy Hx of tonsillectomy Hx of cystoscopy Family History Father Prostate cancer Social History Household Members: Spouse and Significant Other Alcohol intake: current Alcohol intake frequency: holidays/special occasions only Patient Tobacco Use Status: Never used Tobacco service: No Current occupational status: employed Review of Systems Const All systems reviewed & are unremarkable except as noted in HPI and below Reports no additional complaints Eyes Reports no additional complaints ENT Reports no additional complaints Card Reports no additional complaints Resp Reports no additional complaints GI Reports no additional complaints Reports as per HPI Musc Reports no additional complaints Skin/Breast Reports system reviewed and no additional complaints, except as documented Neuro Reports no additional complaints Psych Reports no additional complaints Endo Reports no additional complaints Amadeo/Lymph Reports no additional complaints Aller/Immun Reports no additional complaints Telehealth Telehealth Telehealth Platform: Telephone Location of provider rendering services: practice address Location of patient: address on file Patient Identification confirmed using: Name, : Yes Telehealth method: voice only Patient verbally consented to treatment: Yes Patient verbally consented to billing insurance company: Yes Patient informed of any privacy concerns related to visit: Yes Minutes spent on Phone/Video with Pt.: 16 Results Reviewed Results Reviewed: Date of Service: 11/08/24 US Renal Comparison: CT/REG/SR - CT ABDOMEN WO/W IV CON - 09/08/23 08:12 EST Findings: Right kidney normal size and echotexture, 11 cm length. Simple appearing upper pole 3.5 cm cyst. Left kidney normal size and echotexture, 11.6 cm length. Stable nonobstructing midpole stone measured at 3.2 mm. No hydronephrosis of either kidney. Normal color Doppler IMPRESSION: Stable right renal cyst and nonobstructing stone left kidney. Date of Service: 09/08/23 EXAMINATION: CT ABDOMEN WITHOUT AND WITH CONTRAST CLINICAL INFORMATION: Evaluate indeterminate right renal cyst COMPARISON: 07/24/2023 TECHNIQUE: Contiguous axial thin section helical images of the abdomen were performed before and after the administration of 85 mL of Omnipaque 350 intravenous contrast. The data set was reformatted in the coronal and sagittal planes and reviewed on an independent workstation. This CT examination was performed using dose optimization techniques as appropriate, variously including the following: *Automated exposure control *Adjustment of mA and/or kV according to patient size (this includes techniques or standardized protocols for targeted exams where dose is matched to indication/reason for exam; i.e. extremities or head) *Use of iterative reconstruction technique DLP: 711 mGy-cm FINDINGS: LUNG BASES: Clear LIVER, GALLBLADDER, AND BILIARY TREE: Mild diffuse hypoattenuation of the liver parenchyma may reflect hepatic steatosis. PANCREAS: Unremarkable SPLEEN: Unremarkable ADRENAL GLANDS AND KIDNEYS: Right upper pole 3.7 x 2.9 cm renal cyst measures 5 Hounsfield units on noncontrast imaging and 13 Hounsfield units on postcontrast imaging, consistent with no definite enhancement and no abnormal internal soft tissue structures. Additional hypoattenuating bilateral renal regions are too small to characterize. Nonobstructing 4 mm left lower pole renal stone. Previously seen proximal left ureteral stone is not visualized on today's study, although the entirety of the left ureter is not included in [id number]. BOWEL LOOPS: Visualized portions of the small and large bowel are unremarkable. Appendix is within normal limits. LYMPH NODES: Normal. VASCULAR: Unremarkable BONES: Mild degenerative changes of the thoracolumbar spine. IMPRESSION: Right upper pole 3.7 cm renal cyst demonstrates no definite enhancement and no abnormal internal soft tissue structures, consistent with a Bosniak 1 renal cyst, requiring no follow-up. . * Nonobstructing 4 mm left lower pole renal stone. Previously seen proximal left ureteral stone is not visualized on today's study, although the entirety of the left ureter is not included in [id number]. * Mild diffuse hypoattenuation of the liver parenchyma may reflect hepatic steatosis. Assessment & Plan Assessment & Plan (1) Kidney stone on left side: Code(s): N20.0 - Calculus of kidney Category: Medical (2) Simple renal cyst: Code(s): N28.1 - Cyst of kidney, acquired Category: Medical Plan Plan I advised that the current kidney stone size of 3-4 mm does not necessitate immediate action since it has not grown. The possibility exists for it to pass naturally without intervention unless a change occurs. The patient is advised to watch for symptoms indicating stone movement and will require annual follow-up unless overlapping with other imaging. Lymphoma treatment involves chemotherapy planned by oncology specialists for whom the patient will defer for this and associated care. Continuous monitoring will ensure kidney health management. Patient Instructions - Monitor for any new symptoms like flank pain or blood in urine - Follow up with scheduled imaging as directed - Begin chemotherapy as planned with the oncology team - Contact the office promptly if kidney stone symptoms develop or worsen - Maintain communication with oncology regarding lymphoma treatment progress Orders: Orders US renal BI 11 Months N20.0 - Calculus of kidney, N28.1 - Cyst of kidney, acquired Patient Instructions: The patient had an opportunity to ask questions regarding treatment plan. The patient expressed understanding and agreement with the above treatment plan. The patient is aware they should contact our office by phone for worsening of their current condition or the appearance of new symptoms. Compliance is encouraged with any medications and followup testing that is ordered. It is a privilege to be allowed the opportunity to participate in the urologic care of your patient. If you have any questions or concerns regarding treatment for the above conditions please do not hesitate to contact me. The office telephone contact is [phone]. This note is constructed in part using voice recognition software. While every effort has been made to ensure accuracy putty mixer and applier errors may have been included. Yours sincerely, Taryn Bertrand MD Scribe Plan - Not visible on output: Patient was informed and verbally consented to the use of an ambient scribe for clinic note documentation during this visit. Coding Level of Care Code Tele Est Pt Level 3 (68150) Diagnoses Kidney stone on left side N20.0 Simple renal cyst N28.1
--- OUTSIDE RECORDS SUMMARY | 2024-11-25 08:37 | XMS_ITS | Patient Health Record ---
Author Organization [facility] Address [address] [place] [address] Care Team Providers Care Wet Room Supervisor Name Role Phone Mary (RETIRED) Cortes MARKS Primary Care Provid er Unavailable Cortes Feliciano Unavailable [phone] Reason For Referral Referral Organization [facility] Referring Provider First Name Cortes Referring Provider Last Name Braden Referring Provider Speciality Gastroente rology Referred Provider NGHIA MARTINEZ Referred Provider Specialty Internal Med icine Referral Priority Routine Medications Medication SIG (Take, Route, Frequency, Duration) Notes Start Date End Date Status Lisinopril started in 08/2015 A ctive Omeprazole 20 MG TAKE 1 CAPSULE BY [facility] EVERY DAY for 90 Active Immunizations Vaccine Route Administration Date Status Comme nts Influenza Unknown 05/25/2019 Administered Problems Problem Type SNOMED Code ICD Code Onset Dates Problem Status W/U Status Risk Notes Problem 735200990 Encounter for screening for malignant neoplasm of colon (Z12.11) Active confirmed Problem Screening for malignant neoplasm of rectum (322272041) Encounter for screening for malignant neoplasm of rectum (Z12.12) Active confirmed Problem 878592764 Gastroesophageal reflux disease without esophagitis (K21.9) Active confirmed Problem 58506164 Hiatal hernia (K44.9) Active confirmed Problem 428077127 Throat pain (R07.0) Active confirmed Problem 995511482 Globus sensation (R09.89) Active confirmed Plan Of Treatment Future Test Test Name Order Date UPPER GI ENDOSCOPY 09/19/2015 COLONOSCOPY 09/19/2015 Next Appt Details Provider Name:Cortes Feliciano , 12/08/2024 03:20:00 PM, [address], [address], [place], [address], Insurance Providers Payer Name Payer Address Payer Phone Subscriber Number Group Number Insured Name Patient Relationship to Insured Coverage Start Date Coverage End Date [facility] PROFESSIONAL CLAIMS [address] [place] [address] [phone] [id number] JACKSON AMBROCIO Self - patient is [...]
--- OUTSIDE RECORDS SUMMARY | 2024-11-25 08:37 | XMS_ITS | Patient Health Record ---
Author Organization Sarkis Hernandez MD Address [address] [place], [place] [address] Care Team Providers Care Hearing Therapist Name Role Phone Mary Cortes MARKS Primary Care Provider Unavail able Sarkis Hernandez Unavailable [phone] Allergies No Known Allergies Reason For Referral [...] Problem Status W/U Status Risk Notes Problem 18750472 Hypertension, unspecified type (I10) Active confirmed Plan Of Treatment No Information Insurance Providers Payer Name Payer Address Payer Phone Subscriber Number Group Number Insured Name Patient Relationship to Insured Coverage Start Date Coverage End Date [employer] [address] [place], [place] [id number] [phone] [id number] Ede AMBROCIO Self - patient is the insured
== END 2024-11-25 09:08 | disposition home or self-care (01) ==
LOC: HO.HUSH 08:30
PROVIDERS: PCP Internal Medicine; Visit Provider Urology
DX: N20.0 Calculus of kidney (principal); N28.1 Cyst of kidney, acquired
CPT/HCPCS: 99213

== ENCOUNTER → 2024-11-25 08:30 | Outpatient (BNVA) | payer BC, SELFPAY | PROVIDERS: PCP Internal Medicine; Visit Provider Urology ==

== ENCOUNTER → 2024-11-26 07:49 | Outpatient (REF) | payer BC, SELFPAY ==
--- OUTSIDE RECORDS SUMMARY | 2024-11-26 07:51 | XMS_ITS | Patient Health Record ---
Author Organization Sarkis Hernandez MD Address [address] [place], [place] [id number] Care Team Providers Care Flag Signaler Name Role Phone Mary Cortes MARKS Primary Care Provider Unavail able Sarkis Hernandez Unavailable [phone] Allergies No Known Allergies Reason For Referral [...] Problem Status W/U Status Risk Notes Problem [id number] Hypertension, unspecified type (I10) Active confirmed Plan Of Treatment No Information Insurance Providers Payer Name Payer Address Payer Phone Subscriber Number Group Number Insured Name Patient Relationship to Insured Coverage Start Date Coverage End Date [employer] [address] [place], [place] [id number] Ede AMBROCIO Self - patient is the insured
--- OUTSIDE RECORDS SUMMARY | 2024-11-26 07:51 | XMS_ITS | Patient Health Record ---
Author Organization [facility] Address [address] [place] [address] Care Team Providers Care Reconditioning Associate Name Role Phone Mary (RETIRED) Cortes MARKS Primary Care Provid er Unavailable Cortes Feliciano Unavailable [phone] Reason For Referral Referral Organization [facility] Referring Provider First Name [...] Problem Status W/U Status Risk Notes Problem [id number] Encounter for screening for malignant neoplasm of colon (Z12.11) Active confirmed Problem Screening for malignant neoplasm of rectum (642718454) Encounter for screening for malignant neoplasm of rectum (Z12.12) Active confirmed Problem [id number] Gastroesophageal reflux disease without esophagitis (K21.9) Active confirmed Problem 23245969 Hiatal hernia (K44.9) Active confirmed Problem [id number] Throat pain (R07.0) Active confirmed Problem 285581124 Globus sensation (R09.89) Active confirmed Plan Of Treatment Future Test Test Name Order Date UPPER GI ENDOSCOPY 09/19/2015 COLONOSCOPY 09/19/2015 Next Appt Details Provider Name:Cortes Feliciano , 12/08/2024 03:20:00 PM, [address], [address], [place], [address], Insurance Providers Payer Name Payer Address Payer Phone Subscriber Number Group Number Insured Name Patient Relationship to Insured Coverage Start Date Coverage End Date [facility] [employer] CLAIMS [address] [place] [address] [id number] JACKSON AMBROCIO Self - patient is the insured Medical (General) History Medical History History ICD Code Hypertension Denies [place],DM,CVA,Lung disease,Renal dise ase Neg. cardiac cath Neg. screening colonoscopy in 11/2015 GERD/Globus--EGD in 11/2015 w ith a small to mod-sized HH--no esophagitis, no Leon's, benign gastric polyp; uses omeprazole with relief of his symptoms Surgical History Surgery Date(Month/Year) Left knee 2005
--- NOTE | 2024-11-26 07:54 | CA_ITS ---
Transthoracic Echocardiogram Patient (Last, First, Middle): Ede Mcarthur R Gender: Male Date of : 1965 Age: 59 Procedure Date: 11/26/2024 Procedure Type: Transthoracic Echocardiogram Location: OP Height: 172.72 cm Weight: 98.43 kg BSA: 2.12 m2 Heart Rate: bpm BP: 130 / 82 mmHg Autoclave Operator: TO Referring MD: Wally Tao MD Symptoms: Diffuse large-celllymphoma,pretreatment Assessment Study Quality: Adequate ECG Rhythm: Bradycardia Conclusions: - The left ventricular systolic function is normal. The calculated ejection fraction is 63% by biplane method. - There is moderate septal asymmetric hypertrophy. - No obvious valvular pathology seen on this study. Findings Left Ventricle Normal left ventricular cavity size. The left ventricular systolic function is normal. The calculated ejection fraction is 63% by biplane method. There is no evidence of regional wall motion abnormalities. Diastolic function is normal for age. There is moderate septal asymmetric hypertrophy. LV peak GLS -21.1%. (normal). Right Ventricle Normal right ventricular cavity size and systolic function. Atria Both atria are normal in size. Aortic Valve There is a normal trileaflet aortic valve. There is no aortic valve stenosis. There is no aortic valve regurgitation. Mitral Valve The mitral valve appears normal. There is no mitral valve regurgitation. There is no mitral valve stenosis. Pulmonic Valve The pulmonic valve is likely normal. Tricuspid Valve There is mild tricuspid valve regurgitation. There is no evidence of pulmonary hypertension. Great Vessels Top normal ascending aortic size at 3.9 cm. Venous The inferior vena cava was not well visualized. The inferior vena cava is normal in size. Pericardium/Pleural There is no evidence of pericardial effusion. Prior Study Comparison No prior study available for comparison. Recommendations, Care & Conclusions No obvious valvular pathology seen on this study. Measurements 2D Linear Measurements IVSd: 1.38 0.6-0.9/0.6-1.0 cm LVIDd: 4.57 3.9-5.3/4.2-5.9 cm LVIDd Index: 2.16 2.4-3.2/2.2-3.1 cm/m2 LVIDs: 3.19 2.0-3.6 cm LVPWd: 0.72 0.7-1.1 cm LA Diam: 3.50 2.7-3.8/3.0-4.0 cm LAIDs Index: 1.65 1.5-2.3 cm/m2 LV Mass: 209.63 67-162/88-224 g LV Mass Index: 98.88 43-95/49-115 g/m2 LVOT Diam: 2.50 3.0+(-)1.3 cm 2D Systolic Function EF 4C: 61.70 >55% EF 2C: 64.90 >55% EF BiP: 62.80 >55% Mitral Valve MV Pk E: 0.54 MV PK A: 0.46 MV Decel Time: 204.00 E/A: 1.20 E'Lateral: 8.70 E'Medial: 5.66 E/E' Med: 9.50 E/E' Lat: 6.20 PHT: 60.00 MVA PHT: 3.67 Decel Lea: 2.63 Aortic Valve AoV Pk Jin: 1.34 AoV Mn Jin: 0.88 AoV VTI: 0.29 AoV Pk Grad: 7.00 Aov Mn Grad: 4.00 KWAN Cont.VTI: 4.24 LVOT LVOT Pk Jin: 1.19 LVOT Mn Jin: 0.76 LVOT VTI: 0.25 LVOT Pk Grad: 6.00 LVOT Mn Grad: 3.00 LVOT Diam: 2.50 LVOT Area: 4.91 Diastolic Function MV Pk E: 0.54 MV Pk A: 0.46 E/A: 1.20 E'Medial: 5.66 E/E' Med: 9.50 E' Laterial: 8.70 E/E' Lat: 6.20 Right Ventricle TAPSE (mm): 22.80 TVS' Jin: 12.70 Tricuspid Valve TR Pk Jin: 2.27 TR Pk Grad: 21.00 RA Press: 3.00 RVSP: 24.00 Great Vessels Aorta Sinus of Valsalva: 3.18 2.0-3.[address] Ridge: 2.92 1.7-3.4 cm Ao Asc: 3.90 2.1-3.4 cm Updated in Other Vendor System with Status of Final Devon Vega MD electronically signed on 11/28/2024 12:36:43 PM with status of Final
== END ==
LOC: HO.CARD 07:49
PROVIDERS: PCP Internal Medicine; Visit Provider Internal Medicine Medical Oncology
DX: C85.90 Non-Hodgkin lymphoma, unspecified, unspecified site (principal)
CPT/HCPCS: 93306

== ENCOUNTER → 2024-11-26 07:54 | Outpatient (BNV) | payer BC, SELFPAY | PROVIDERS: PCP Internal Medicine; Visit Provider Internal Medicine | DX: I42.2 Other hypertrophic cardiomyopathy (principal) | CPT/HCPCS: 93306 ==

== ENCOUNTER 2024-11-30 11:15 | Day surgery (SDC) | payer BC, SELFPAY ==
[2024-11-30] VITALS (16 sets, daily range): BP systolic 100–133; BP diastolic 66–79; PULSE 54–69; RESP 12–20; TEMP 36.2–36.6; O2SAT 93–100; BMI 32.5
--- NOTE | ~2024-11-30 | CT_ITS ---
Diffuse large B-cell lymphoma PROCEDURES: 1. Limited preprocedure CT of the pelvis. Permanent images saved in PACS. 2. 11 g bone marrow core biopsy of the left posterior iliac spine 3. 11 g bone marrow aspirate of the left posterior iliac spine CLINICIANS: Dell Villafana NP Preprocedural imaging reviewed with Jah Batista MD MEDICATIONS: -Versed, Fentanyl , and lidocaine 1% 10 mL SQ -Antibiotics: None -For additional details, please see nursing flowsheet. COMPLICATIONS: None ESTIMATED BLOOD LOSS: < 5 ml CONTRAST: None SPECIMENS: 11 g core placed in formalin. Bone marrow aspirate placed in EDTA and sodium heparin tubes MODERATE SEDATION TIME: 60 min PROCEDURE NOTE: The procedure, risks, benefits, and alternatives were carefully explained to the patient and written informed consent was obtained. The patient was placed prone on the CT table. A timeout was performed. A limited CT of the pelvis was performed to localize posterior iliac spine and choose appropriate needle entry and trajectory. The patient was prepped and draped in usual sterile fashion. The skin, subcutaneous tissues, and periosteum were anesthetized with lidocaine. Under CT guidance, an 11-gauge bone marrow biopsy needle was advanced into the posterior iliac spine, with the tip positioned slightly cephalad. An 11-gauge core biopsy of the bone marrow was performed and was placed in formalin. Next, the 11-gauge bone marrow biopsy needle was then advanced into the posterior iliac spine, under CT guidance, with the tip positioned slightly caudal. A bone marrow aspirate was performed. The specimen was placed in the provided EDTA and sodium heparin tubes. The needle was removed. A dry dressing was applied and secured with Tegaderm. There were no immediate complications. The patient was stable after the procedure and was transferred to the post anesthesia care unit. The procedure was done under moderate sedation with a dedicated nurse for monitoring of vital signs. CT/CT biopsy asp core bone marrow Impression: CT-guided bone marrow biopsy and aspirate This procedure was performed by Dell Villafana NP and supervised by Jah Batista MD. Electronically signed by: Jah Batista MD 12/01/2024 04:24 PM EDT RP Workstation: [id number]
[2024-11-30 12:23] LABS: Prothrombin Time 11.5 SEC (10.9-12.4)
[2024-11-30] MEDS: Midazolam HCl 2 MG/2 ML VIAL 1 MG IVPUSH ×2 (13:35→14:00)
[2024-11-30] MEDS: fentaNYL citrate/PF 100 MCG/2 ML VIAL 50 MCG IVPUSH ×2 (13:35→14:00)
[2024-11-30 14:43] LABS: Bone Marrow SEE SEPARATE REPORT
== END 2024-11-30 15:35 | disposition home or self-care (01) ==
LOC: HO.SSS 11:17
PROVIDERS: Radiology Diagnostic Radiology; PCP Internal Medicine; Visit Provider Internal Medicine Medical Oncology
DX: C83.30 Diffuse large B-cell lymphoma, unspecified site (principal); D75.89 Other specified diseases of blood and blood-forming organs; I10 Essential (primary) hypertension; R16.1 Splenomegaly, not elsewhere classified; N20.0 Calculus of kidney; N28.1 Cyst of kidney, acquired; Z79.899 Other long term (current) drug therapy; Z98.890 Other specified postprocedural states
CPT/HCPCS: 36415; 38222; 85610; 88184; 88185; 88237; 88264; 88305; 88311; 88313; 88341; 88342; 99152; 99153; J2003; J2250; J3010

== ENCOUNTER → 2024-11-30 12:25 | Outpatient (BNV) | payer BC, SELFPAY | PROVIDERS: PCP Internal Medicine | DX: C83.30 Diffuse large B-cell lymphoma, unspecified site (principal) | CPT/HCPCS: 38222; 77012 ==

== ENCOUNTER 2024-12-06 14:25 | Outpatient (REF) | payer BC, SELFPAY ==
--- NOTE | ~2024-12-06 | CT_ITS ---
CLINICAL HISTORY: C85.90 - Non-Hodgkin lymphoma, unspecified, unspecified site CT chest with contrast Comparison: CT/REG/SR - CT ABDOMEN WO/W IV CON - 09/08/23 08:12 EST Findings: The heart size is normal. The visualized thyroid and mediastinum are unremarkable. There is a 9 mm pleural-based nodule within the left lower lobe on image 25. There is a linear focus of atelectasis within the left lower lobe. There are mild dependent changes within the bilateral lower lobes. The spleen has increased slightly in size and there is a new 4 cm low-density lesion within the inferior aspect of the spleen, incompletely visualized. There is a 3.3 cm cyst within the right kidney without change. There is a chronic healed sternal fracture. There is no acute fracture. There is no suspicious bone lesion. IMPRESSION: 1. There is a 9 mm left lower lobe nodule. Fleischner recommendations are not appropriate given the patient's history of malignancy. Recommend follow-up per clinical information. 2. Partial visualization of a new low-density lesion within the spleen. There has also been slight interval increase in splenic size. Findings are likely on the basis of involvement with malignancy. This document has been electronically signed by: Julienne Pickett MD on 12/08/2024 13:38:53
[2024-12-06] MEDS: iohexoL 350 MG/ML 75 ML INFUS..BTL 65 ML IV (15:41)
== END 2024-12-06 14:26 | disposition home or self-care (01) ==
LOC: HO.CT 14:25
PROVIDERS: PCP Internal Medicine; Visit Provider Surgery
DX: C85.90 Non-Hodgkin lymphoma, unspecified, unspecified site (principal)
CPT/HCPCS: 71260; Q9967

== ENCOUNTER → 2024-12-06 14:55 | Outpatient (BNV) | payer BC, SELFPAY | PROVIDERS: PCP Internal Medicine; Visit Provider Radiology Diagnostic Radiology | DX: R91.8 Other nonspecific abnormal finding of lung field (principal); C85.17 Unspecified B-cell lymphoma, spleen | CPT/HCPCS: 71260 ==

== ENCOUNTER 2024-12-07 10:01 | Outpatient (REF) | payer BC, SELFPAY ==
--- NOTE | ~2024-12-07 | PE_ITS ---
EXAMINATION: FLUORINE-18 FDG PET/CT SCAN CLINICAL INFORMATION: Large B-cell lymphoma. TECHNIQUE: 54 minutes following the intravenous administration of 16.8 mCi of fluorine 18 FDG, images from the skull base to proximal thighs were obtained using a combined PET/CT scanner with CT scan based attenuation correction. No oral or intravenous contrast was administered. Transverse, coronal, sagittal, and volume reconstruction projections were obtained. The patient's blood glucose as determined by a finger stick, was 98 mg/dL immediately prior to injection. The radiotracer was injected intravenously through left antecubital vein, without any complications. Total CT exam dose-length product 1058 mGy-cm. * These CT images were obtained using dose optimization techniques as appropriate, variously including the following: Automated exposure control * Adjustment of mA and/or kV according to patient size (this includes techniques or standardized protocols for targeted exams where dose is matched to indication/reason for exam; i.e. extremities or head) * Use of iterative reconstruction technique COMPARISON: None available. FINDINGS: HEAD AND NECK: No abnormal radiotracer uptake. No large intracranial hemorrhage, acute territorial infarct or significant shift of midline structures. CHEST: Ports and Devices: None Lungs: No abnormal radiotracer uptake. Pleura: No significant pleural effusion. Lymph Nodes: No tracer-avid mediastinal, hilar or internal mammary or axillary lymphadenopathy. Mediastinum: There is no significant pericardial effusion/thickening. There is mild coronary artery calcifications. Central trachea and the bronchi appears widely patent. Breasts/Chest Wall: No abnormal radiotracer uptake. ABDOMEN/PELVIS: Liver/Biliary System: No focal tracer-avid liver lesion. The gallbladder there is contracted but unremarkable.. Pancreas: Normal.No peripancreatic fluid collection. No pancreatic ductal dilatation. Spleen: There is a focal area of intense FDG activity in the anterior aspect of lower spleen measuring approximately 3.7 x 2.6 cm on axial PET slice 137/3. No additional focal areas of FDG activity seen. No evidence of splenomegaly. Adrenal Glands: No abnormal radiotracer uptake. Kidneys: No hydronephrosis, hydroureter or renal calculi bilaterally. There is a nonenhancing simple 2.9 cm cyst upper pole right kidney. A 3 mm radiopaque calculi seen in lower pole left kidney. Bowel: There is scattered stool and gas in colon without distention. The small bowel loops are normal caliber. Appendix is not visualized with certainty. No inflammatory process in the abdomen. There is no free fluid. No free air seen. Few scattered diverticuli seen in colon. Lymph Nodes: No tracer avid retroperitoneal, mesenteric or pelvic and/or groin lymphadenopathy. Pelvic Organs: The urinary bladder is underdistended. MUSCULOSKELETAL: There is mild FDG activity seen bilateral shoulder joints consistent DJD. VASCULAR: Unremarkable PET/PET CT fusion skull to thigh IMPRESSION: Solitary focal intense FDG activity seen in the spleen consistent with patient's history of lymphoma. No additional areas of metabolic/FDG activity seen in neck, chest, abdomen or pelvis. Electronically signed by: Modesto Hicks MD 12/07/2024 03:01 PM EDT
== END 2024-12-07 10:02 | disposition home or self-care (01) ==
LOC: HO.PET 10:01
PROVIDERS: PCP Internal Medicine; Visit Provider Internal Medicine Medical Oncology
DX: Z13.89 Encounter for screening for other disorder (principal)

== ENCOUNTER 2024-12-08 11:14 | Day surgery (SDC) | payer BC, SELFPAY ==
[2024-12-08] VITALS (15 sets, daily range): BP systolic 114–132; BP diastolic 70–82; PULSE 56–66; RESP 14–98; TEMP 36.1–36.7; O2SAT 97–100; BMI 33.1
--- NOTE | ~2024-12-08 | IR_ITS ---
PROCEDURE: IR INSERTION OF TUNNEL CATHETER CLINICAL INFORMATION: CLINICAL HISTORY: Lymphoma The patient presents to interventional radiology for placement of a port for therapy. PROCEDURES: 1. Real-time ultrasound-guided access into the right internal jugular vein after documentation of selected vessel patency, and permanent image storing in the patient records. 2. Placement of a 6.6 Serbian single-lumen port. CLINICIAN: Dell Villafana NP MEDICATIONS: - Versed , Fentanyl , Lidocaine 1% SQ -Antibiotics: Ancef 2g -For additional details, please see nursing flowsheet. Complications: None. Estimated blood loss: <5 ml Specimens: None. Contrast: None. Fluoroscopy time: 0.3 min MODERATE SEDATION TIME: 30 min PROCEDURE NOTE: The procedure, risks, benefits, and alternatives were carefully explained to the patient and written informed consent was obtained. The patient was placed supine on the fluoroscopy table. A timeout was performed. The right neck and chest was prepped and draped in usual sterile fashion. Maximum barrier technique was utilized. Local anesthesia was administered to the access site with 1% lidocaine. Under ultrasound guidance, the right internal jugular vein was accessed with a 5 fr micropuncture set. A 0.035 in wire was advanced into the IVC. A peel-away sheath was advanced over the wire and into the SVC, and the wire was removed. Next, subcutaneous lidocaine was administered to the chest. The port pocket was created after the skin incision, utilizing blunt dissection. Using blunt dissection, a subcutaneous tunnel was created that connects from the port pocket to the venotomy site. Through the peel-away sheath, the 6.6 Serbian port catheter was placed. The catheter position was verified with fluoroscopy to be at the superior vena cava/right atrial junction. The port was connected to the catheter and was placed in the pocket. The port incision site was closed with interrupted 3-0 Vicryl subcutaneous sutures and surgical glue. Prior to closing the skin, 1 g of Ancef solution was placed in the pocket. The port was tested, flushed, and packed with heparin per routine protocol. The patient tolerated the procedure well. The patient was stable after the procedure and was transferred to the PACU. The procedure was performed under moderate sedation and with a dedicated nurse with continuous monitoring of vital signs. A permanent image of the ultrasound the neck and fluoroscopic image of the chest was saved and sent to PACS. FINDINGS: 1. Patent right internal jugular vein 2. Placement of a 6.6 Serbian single lumen port. 3. Port flushes and aspirates very well with a 10 mL syringe. No pneumothorax. IR/IR cvc insert tunnel w prt/marine electrician apprentice IMPRESSION: Placement of a 6.6 Serbian single-lumen power port. PLAN: - The patient will be discharged home when stable by sedation protocol. - Port may be used immediately. This procedure was performed by Dell Villafana NP, and directly supervised by Jah Batista MD Electronically signed by: Jah Batista MD 12/09/2024 01:18 PM EDT
[2024-12-08] MEDS: ceFAZolin Sodium/Dextrose,Iso 2 GM/50 ML PIGGYBACK IV (13:20)
[2024-12-08] MEDS: fentaNYL citrate/PF 100 MCG/2 ML VIAL 50 MCG IVPUSH (13:28)
[2024-12-08] MEDS: Midazolam HCl 2 MG/2 ML VIAL 1 MG IVPUSH (13:28)
== END 2024-12-08 15:06 | disposition home or self-care (01) ==
PROVIDERS: PCP Internal Medicine; Visit Provider Internal Medicine Medical Oncology
DX: Z45.2 Encounter for adjustment and management of vascular access device (principal); C83.30 Diffuse large B-cell lymphoma, unspecified site; I10 Essential (primary) hypertension; D73.9 Disease of spleen, unspecified; Z98.890 Other specified postprocedural states
CPT/HCPCS: 36561; 99152; 99153; C1769; C1788; J0690; J1642; J1644; J2250; J3010

== ENCOUNTER → 2024-12-08 13:04 | Outpatient (BNV) | payer BC, SELFPAY | PROVIDERS: PCP Internal Medicine | DX: Z46.89 Encounter for fitting and adjustment of other specified devices (principal) | CPT/HCPCS: 36561; 76937 ==

== ENCOUNTER 2025-01-04 13:35 | Outpatient (AMB) | payer BC, SELFPAY ==
[2025-01-04 13:45] VITALS: BP 109/59; PULSE 67; RESP 14; TEMP 36.4; O2SAT 97; BMI 33.3
--- NOTE | 2025-01-04 13:45 | A.OFFPC_ITS ---
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: No Accompanied by: Self / Same As Patient Allergies No Known Allergies [No Known Allergies*] Allergy (Verified 01/04/25 14:18) Medication List - Last Reconciled 01/04/25 by Akbar Tay MD allopurinol 300 mg PO DAILY lisinopril 10 mg PO DAILY loratadine 10 mg PO DAILY PRN omeprazole 20 mg PO DAILY ondansetron 8 mg PO Q8H PRN prednisone 60 mg (3 x 20 mg) PO DAILY pyridoxine (vitamin B6) 100 mg PO DAILY 90 days sulfamethoxazole-trimethoprim 800-160 mg (Bactrim DS) 1 tab PO DAILY valacyclovir (Valtrex) 500 mg PO BID Tobacco use date assessed: 01/04/25 Dental Screening Dental Screen Date: 01/04/25 Did you have a dental visit in the last 12 months?: Yes Did you have a dental problem in the last 6 months where you did not have access to dental care?: No Was dental information given to patient?: Patient has dentist [facility] Medical History Non-Hodgkin lymphoma in adult Lymphoma Splenic mass HTN (hypertension) Surgical History Hx of colonoscopy (~11/24/15) Hx of tonsillectomy Hx of cystoscopy Family History Father Prostate cancer Social History (Updated 01/04/25 @ 13:53 by KRISTEN Leone) Household Members: Spouse and Significant Other Housing: House Are you a primary intensive care unit registered nurse to a significant other at home: No Do you presently have visiting nurse or other home services: No Alcohol intake: current Alcohol intake frequency: does not drink Patient Tobacco Use Status: Never used Tobacco service: No Current occupational status: employed 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 1. Little interest or pleasure in doing things: not at all 2. Feeling down, depressed, or hopeless: not at all 3. Trouble falling or staying asleep, or sleeping too much: not at all 4. Feeling tired or having little energy: not at all 5. Poor appetite or overeating: not at all 6. Feeling bad about yourself - or that you are a failure or have let yourself or your family down: not at all 7. Trouble concentrating on things, such as reading the newspaper or watching television: not at all 8. Moving or speaking so slowly that other people could have noticed. Or the opposite - being so fidgety or restless that you have been moving around a lot more than usual: not at all 9. Thoughts that you would be better off or of hurting yourself in some way: not at all Total score: 0 Depression Screening Interpretation: Negative Depression Screening Done: Yes Source: Developed by Drs. Cortes Aiken, Stacey Thayer, Yahir Skaggs and colleagues, with an educational clay from [employer]. Thrive Questionnaire Date Thrive assessed: 01/04/25 I am a: Patient What is your living situation today?: I have a steady place to live Within the past 12 months, did the food you bought not last and you didn't have the money to get more?: Never true Within the past 12 months, did you worry whether your food would run out before you got money to buy more?: Never true Do you have trouble paying for medicines?: No Do you have trouble getting transportation to medical appointments?: No Do you have trouble paying your heating and electricity bill?: No Do you have trouble taking care of your child, family member or friend?: No Do you have trouble with day-to-day activities such as bathing, preparing meals, shopping, managing finances, etc.?: No Are you currently unemployed and looking for a job?: No Are you interested in more education?: No Please select the resources that you would like help with: None Currently or been in a relationship where the following occur: No concerns reported THRIVE Score: 0 AUDIT C Alcohol Use Questionnaire (AUDIT-C) 1. How often do you have a drink containing alcohol?: Never 3. How often do you have six or more drinks on one occasion?: Never Total Score: 0 EVELIN-7 AMB Questionnaire EVELIN-7 Date EVELIN - 7 assessed: 01/04/25 Feeling nervous, anxious, or on edge: 0 = Not at all Not being able to stop or control worryin = Not at all Worrying too much about different things: 0 = Not at all Trouble relaxin = Not at all Being so restless that it is hard to sit still: 0 = Not at all Becoming easily annoyed or irritable: 0 = Not at all Feeling afraid as if something awful might happen: 0 = Not at all Total EVELIN-7 score (0-4 normal; 5-9 mild; 10-14 moderate; 15-21 severe): 0 Source: Developed by Drs. Cortes Aiken, Stacey Thayer, Yahir Skaggs and colleagues, with an educational clay from [employer]. Physical exam (Primary Care) Vital Signs: Last Vital Signs Temp 97.5 F 01/04/25 13:45 Pulse 67 01/04/25 13:45 Resp 14 01/04/25 13:45 BP 109/59 L 01/04/25 13:45 Pulse Ox 97 01/04/25 13:45 Oxygen Delivery Method Room Air 01/04/25 13:45 Care Plan Goal for BP management: BP in range BMI result Body Mass Index 33.3 BMI Assessment/Plan discussion: High Tobacco/Smoking Status: Tobacco use Status Tobacco use date assessed 01/04/25 01/04/25 13:54 Patient Tobacco Use Status Never used Tobacco 01/04/25 13:54 PHQ-9: PHQ-9 Score PHQ-9: Total score 0 01/04/25 13:54 Depression Screening Interpretation: Negative Thrive Assessment: Date of Thrive Assessment Date Thrive assessed 01/04/25 01/04/25 13:54 Currently or been in a relationship where the following occur: No concerns reported Advance Care Planning discussion: Exists, not on file Date of discussion: 01/04/25 Who was present: Patient Forms completed: Health Care Proxy Time spent: 1-15 minutes, not on file Coding Level of Care Code Est Pt Level 4 (06103) Complex EM visit Add On G2211 Diagnoses Non-Hodgkin lymphoma in adult C85.90 Additional Codes Vital Signs *Quality* - Advance Care Planning discussion: Exists, not on file ([id number]) Vital Signs *Quality* - Time spent: 1-15 minutes, not on file ([id number]) Assessment & Plan Assessment & Plan (1) Non-Hodgkin lymphoma in adult: Code(s): C85.90 - Non-Hodgkin lymphoma, unspecified, unspecified site Category: Medical Plan: Sees Dr Tao. Currently completed one round of chemo. Plan History of Present Illness The patient is a 59-year-old male presenting with Non-Hodgkin's Lymphoma and associated hip pain. Following a diagnosis in July, derived from a splenic mass discovered incidentally after a fall, the patient has commenced treatment with chemotherapy, having completed the first round. In addition, the patient experiences hypertension, managed with lisinopril, and GERD, for which he uses lvpm-etr-ootpkyz medication. Recently, he has developed bearable pelvic and hip pain following bone marrow injections. During the initial chemotherapy period, he experienced transient lightheadedness but reports resolution of these symptoms currently. He remains off work under a designation of occupational-related illness but has no significant barriers in daily functioning outside of fatigue and mild discomfort. 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 - Family Status: ; no children. - Exercise: Previously worked 90 hours a week, currently homebound with fatigue impacting his daily activities. - Functional Status: Reduction in daily activity level with fatigue setting in the early afternoon. 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 Review of Systems - General: Reports fatigue; Denies other constitutional symptoms. - Cardiovascular: Denies chest pain or palpitations. - Gastrointestinal: Reports ongoing GERD symptoms. - Musculoskeletal: Reports hip and pelvic pain subsequent to bone marrow injections. - Neurological: Reports brief lightheadedness post-chemotherapy; Denies ongoing symptoms. Physical Exam General: Cooperative and healthy appearing Nutritional Appearance: Well nourished Orientation/consciousness: Patient oriented x3 Limitations: No limitations Head: Normal to inspection General: Appearance normal, both eyes and all related structures Neck: Normal visual inspection Chest: Normal palpation of entire chest wall Respiratory: No pain ormal respiratory effort Neurology: Patient oriented x3, reports lightheadedness initially after chemo, resolved now Results Plan 1. Non-Hodgkin's Lymphoma - Continue chemotherapy as per current regimen. - Monitor and manage chemotherapy effects. 2. Hypertension - Maintain lisinopril therapy. - Regular blood pressure monitoring advised. 3. Gastroesophageal Reflux Disease Gerd - Use xwzh-lgn-hqketkx medications for symptom control. - Dietary modifications suggested. 4. Pelvic And Hip Pain - Observe pain progression; provide relief as needed. Discussion Notes The patient was informed of the continuity of his chemotherapy regimen, with reassurances given regarding the management of potential side effects. Discussions included the maintenance of current antihypertensive therapy and njal-lgx-bxmknba management for GERD symptoms, highlighting the importance of ongoing symptom tracking and lifestyle adjustments. The patient's hip pain, secondary to procedural intervention, will be monitored for any adverse change. Future directions were outlined, with a conditional emphasis on disability planning depending on treatment progression outcomes. Patient Instructions - Continue scheduled chemotherapy sessions. - Take lisinopril as prescribed for hypertension. - Use gqfc-bea-osrvszs medication to manage GERD symptoms. - Monitor and report any significant changes in pain or general well-being. - Follow dietary recommendations to help manage GERD. - Ensure regular monitoring of blood pressure. - Report any new or worsening symptoms promptly.
== END 2025-01-04 14:20 | disposition home or self-care (01) ==
LOC: HO.HMCSH 13:35
PROVIDERS: PCP Internal Medicine; Visit Provider Internal Medicine
DX: C85.90 Non-Hodgkin lymphoma, unspecified, unspecified site (principal); Z00.00 Encounter for general adult medical examination without abnormal findings

== ENCOUNTER → 2025-01-04 13:35 | Outpatient (BNVA) | payer BC, SELFPAY | PROVIDERS: PCP Internal Medicine; Visit Provider Internal Medicine ==

== ENCOUNTER 2025-02-01 13:58 | Outpatient (REF) | payer BC, SELFPAY ==
--- NOTE | ~2025-02-01 | XR_ITS ---
EXAMINATION: XR CHEST CLINICAL INFORMATION: neck swelling, B-cell lymphoma, chemotherapy yesterday, new left neck mass COMPARISON: December 06, 2024 TECHNIQUE: 2 views of the chest were obtained. FINDINGS: Port-A-Cath tip terminates in the right atrium. It is new since prior x-ray. Lungs are clear and well aerated. There is no pleural effusion. No bony abnormalities are evident. XR/XR chest 2V IMPRESSION: No acute disease. Electronically signed by: Alexys You MD 02/01/2025 02:23 PM EDT
== END 2025-02-01 13:59 | disposition home or self-care (01) ==
LOC: HO.XRAY 13:58
PROVIDERS: Visit Provider Nurse Practitioner Family
DX: C83.30 Diffuse large B-cell lymphoma, unspecified site (principal); R22.1 Localized swelling, mass and lump, neck
CPT/HCPCS: 71046

== ENCOUNTER → 2025-02-01 14:03 | Outpatient (BNV) | payer BC, SELFPAY | PROVIDERS: Visit Provider Radiology Diagnostic Radiology | DX: R22.1 Localized swelling, mass and lump, neck (principal); C85.10 Unspecified B-cell lymphoma, unspecified site | CPT/HCPCS: 71046 ==

== ENCOUNTER 2025-03-07 16:53 | Outpatient (REF) | payer BC, SELFPAY ==
--- NOTE | ~2025-03-07 | MR_ITS ---
EXAMINATION: MR ABDOMEN WITHOUT THEN WITH IV CONTRAST HISTORY: FDG activity along the gallbladder fossa on PET Scan COMPARISON: Comparison is made with the prior examination dated 08/16/2024. Correlation is also made with a PET/CT scan dated 12/07/2024. TECHNIQUE: Axial in and out of phase T1-weighted gradient echo, axial diffusion weighted, and axial and coronal HASTE T2 with fat saturation images were obtained through the abdomen. Subsequently, fat suppressed axial and coronal T1-weighted images were obtained after the intravenous administration of 10 mL Gadavist. FINDINGS: Liver: There is diffuse loss of signal intensity within the liver on opposed phase imaging, consistent with steatosis. There is no enhancing liver mass. The hepatic and portal veins are patent. There is no intrahepatic biliary dilatation. Gallbladder/biliary tree: No gallstones are identified. The common bile duct is normal in caliber. No intraluminal filling defects are identified to suggest choledocholithiasis. Spleen: The spleen is unremarkable. The previously seen splenic mass is no longer identified. A small hypoenhancing area is noted in the region of the previously seen mass which may represent scar. Pancreas: The pancreas is unremarkable. There is no enhancing pancreatic mass. The pancreatic duct is normal in caliber. Adrenals: The adrenal glands are unremarkable. Kidneys: Again seen is a 3.3 cm septated cyst at the upper pole of the right kidney. Smaller subcentimeter cysts are noted in both kidneys. There is no hydronephrosis. Lymph nodes: There is no retroperitoneal lymphadenopathy in the upper abdomen. Fluid: There is no ascites in the upper abdomen. Visualized bowel: The visualized bowels loops are unremarkable in appearance. Visualized bones: The visualized bones demonstrate normal marrow signal intensity. MR/MR abdomen wo/w con IMPRESSION: 1. The previously seen mass at the lower pole of the spleen is no longer identified. A small hypoenhancing areas noted in this region which they represent scar. 2. Hepatic steatosis. 3. No abnormality is seen involving the gallbladder. Electronically signed by: Cortes Rodriguez MD 03/08/2025 07:34 AM EDT
--- OUTSIDE RECORDS SUMMARY | 2025-03-07 17:08 | XMS_ITS | Clinical Summary ---
Author Organization [facility] Address [address] [place] [address] Phone Care Team Providers Care Clerk Secretary Name Role Phone Unavailable Primary Care Provider Unavailabl e Encounters Date Type Department Care Team Description 02/22/2025 7:27 AM EDT - 02/22/2025 11:59 PM EDT Hospital Encounter [facility] PET Scan [address] [place] [address] Non-Hodgkin lymphoma of spleen (CMS/HCC V24, CMS/HCC V28) Discharge Disposition: Home or Self Care from Last 3 Months Social History Tobacco Use Types Packs/Day Years Used Date Smoking Tobacco: Never Assessed Sex and Gender Information Value Date Recorded Sex Assigned at Not on file Legal Sex Male 12:24 AM EST Gender Identity Not on file Sexual Orientation Not on file Plan of Treatment Health Maintenance Due Date Last Done Comments Pneumococcal Vaccine: 50+ Years (1 of 2 - PCV) 1983 Zoster Vaccines (1 of 2) 1984 COVID-19 Vaccine ( season) 2024 08/02/2021, 09/20/2020, 08/23/2020 Cholesterol Screening (Lipid Panel) 02/21/2025 Colorectal Cancer Screening: Colonoscopy 02/21/2025 Depression Screening 02/21/2025 HIV Screening 02/21/2025 Hepatitis C Screening 02/21/2025 Social Influencers of Health Screening 02/21/2025 Influenza Vaccine (#1) 2025 , 05/02/2020, 06/11/2019, Additional history exists DTaP,Tdap,and Td Vaccines (2 - Td or Tdap) 08/11/2034 08/11/2024 RSV Immunization Adult Patients (1 - 1-dose 75+ series) 2039 HIB Vaccines Aged Out No longer eligi ble based on patient's age to complete this topic HPV Vaccines Aged Out No longer eligi ble based on patient's age to complete this topic Hepatitis A Vaccines Aged Out No long er eligible based on patient's age to complete this topic Hepatitis B Vaccines Aged Out No long er eligible based on patient's age to complete this topic IPV Vaccines Aged Out No longer eligi ble based on patient's age to complete this topic MMR Vaccines Aged Out No longer eligi ble based on patient's age to complete this topic Meningococcal ACWY Vaccine Aged Out N o longer eligible based on patient's age to complete this topic Meningococcal B Vaccine Aged Out No l onger eligible based on patient's age to complete this topic RSV Immunization Patients Under 20 months Aged Out No longer eligible based on patient's age to complete this topic Varicella Vaccines Aged Out No longer eligible based on patient's age to complete this topic Procedures Procedure Name Priority Date/Time Associated Diagnosis Comments PET CT SKULL TO MID THIGH SUBSEQUENT Routine 02/22/2025 9:48 AM EDT Non-Hodgkin lymphoma of spleen ([facility] V24, [facility] V28) from Last 3 Months Results * PET CT Skull to Mid Thigh Subsequent (02/22/2025 9:48 AM EDT) Anatomical Region Laterality Modality Body Radiographic Kely ging 03/01/2025 5:24 AM EDT Impressions 03/01/2025 6:59 AM EDT 1. Deauville 2. Findings are consistent with treatment response 2. Findings suspicious for focal sigmoid diverticulitis with associated FDG activity 3. New nonspecific focal FDG activity along the gallbladder fossa/gallbladder wall. Consider further evaluation with MRI. 5-point Deauville Score Hess: 1. No uptake 2. Uptake less than or equal to mediastinal blood pool 3. Uptake > mediastinal blood pool but less than or equal to liver 4. Uptake moderately higher than liver 5. Uptake markedly higher than liver and/or new lesions X: New areas of uptake unlikely to be related to lymphoma Please note: The CT was acquired at a low radiation dose settings. The images are of nondiagnostic quality and used solely for purposes of attenuation correction and slice localization for the PET scan. If a diagnostic CT study is desired it must be ordered separately. -------- FINAL REPORT -------- Dictated By: Lindsay Pressley Dictated Date: 03/01/2025 05:24 ET Assigned Physician: Lindsay Pressley Reviewed and Electronically Signed By: Lindsay Pressley Signed Date: 03/01/2025 06:59 ET Workstation ID: [id number] Transcribed By: Self Edit Transcribed Date: 03/01/2025 05:24 ET Narrative 03/01/2025 6:59 AM EDT INDICATION: NON-HODGKIN LYMPHOMA. 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 Restaging. TECHNIQUE: FDG PET-CT imaging was performed from the base of the skull through the top of the thighs in a single acquisition with data set reconstructed in axial, coronal, and sagittal planes at the computer workstation with fused data from both the PET imaging study and attenuation correction CT. The CT portion of the examination was done strictly for attenuation correction and is not a true diagnostic CT examination. DLP: 824 mGy-cm Radiopharmaceutical: 11.8 mCi of F-18 FDG IV. Blood glucose: 140 mg/dl. COMPARISON: Outside PET/CT November 2024. FINDINGS: SUV Max: Mediastinal Blood Pool: 3 Liver: 3.2 HEAD AND NECK: No abnormal FDG activity. THORAX: No abnormal FDG activity. Small hiatal hernia. Right-sided Port-A-Cath with tip in the cavoatrial junction. Mild coronary artery calcifications. ABDOMEN/PELVIS: Previously seen splenic mass is less conspicuous on today's examination without significant FDG activity in the anterior inferior spleen SUV max 2.3 (background splenic activity SUV max 2.7). Focal stranding with surrounding diverticula at the level of the sigmoid colon SUV Max 9.4. Nonspecific focal FDG activity near the gallbladder fossa/gallbladder wall SUV max 4.5. Low-attenuation lesion in the right kidney without significant FDG activity. Left-sided nephrolithiasis. Focal hyperdensity in the bowel which may represent ingested high density material. MUSCULOSKELETAL: No focal bone marrow lesion. Bone marrow background activity SUV max 3.6. Procedure Note Lindsay Pressley MD - 03/01/2025 INDICATION: NON-HODGKIN LYMPHOMA. Biopsy of splenic mass demonstratingdiffuse large B-cell lymphoma of the spleen. Restaging. TECHNIQUE: FDG PET-CT imaging was performed from the base of the skullthrough the top of the thighs in a single acquisition with data setreconstructed in axial, coronal, and sagittal planes at the computerworkstation with fused data from both the PET imaging study andattenuation correction CT. The CT portion of the examination was donestrictly for attenuation correction and is not a true diagnostic CTexamination. DLP: 824 mGy-cm Radiopharmaceutical: 11.8 mCi of F-18 FDG IV. Blood glucose: 140 mg/dl. COMPARISON: Outside PET/CT November 2024. FINDINGS: SUV Max: Mediastinal Blood Pool: 3 Liver: 3.2 HEAD AND NECK: No abnormal FDG activity. THORAX: No abnormal FDG activity. Small hiatal hernia. Right-sided Port-A-Cath with tip in the cavoatrialjunction. Mild coronary artery calcifications. ABDOMEN/PELVIS: Previously seen splenic mass is less conspicuous ontoday's examination without significant FDG activity in the anteriorinferior spleen SUV max 2.3 (background splenic activity SUV max 2.7). Focal stranding with surrounding diverticula at the level of the sigmoidcolon SUV Max 9.4. Nonspecific focal FDG activity near the gallbladder fossa/gallbladder wallSUV max 4.5. Low-attenuation lesion in the right kidney without significant FDGactivity. Left-sided nephrolithiasis. Focal hyperdensity in the bowelwhich may represent ingested high density material. MUSCULOSKELETAL: No focal bone marrow lesion. Bone marrow backgroundactivity SUV max 3.6. IMPRESSION: 1. Deauville 2. Findings are consistent with treatment response 2. Findings suspicious for focal sigmoid diverticulitis with associatedFDG activity 3. New nonspecific focal FDG activity along the gallbladderfossa/gallbladder wall. Consider further evaluation with MRI. 5-point Deauville Score Hess: 1. No uptake 2. Uptake less than or equal to mediastinal blood pool 3. Uptake > mediastinal blood pool but less than or equal to liver 4. Uptake moderately higher than liver 5. Uptake markedly higher than liver and/or new lesions X: New areas of uptake unlikely to be related to lymphoma Please note: The CT was acquired at a low radiation dose settings. The images are ofnondiagnostic quality and used solely for purposes of attenuationcorrection and slice localization for the PET scan. If a diagnostic CTstudy is desired it must be ordered separately. -------- FINAL REPORT -------- Dictated By: Lindsay Pressley Dictated Date: 03/01/2025 05:24 ET Assigned Physician: Lindsay Pressley Reviewed and Electronically Signed By: Lindsay Pressley Signed Date: 03/01/2025 06:59 ET Workstation ID: [id number] Transcribed By: Self Edit Transcribed Date: 03/01/2025 05:24 ET Timothy Tao MD IMG NM PROCEDURES Final Result from Last [address] [facility]
== END 2025-03-07 16:54 | disposition home or self-care (01) ==
LOC: HO.MRI 16:53
PROVIDERS: Visit Provider Internal Medicine Medical Oncology
DX: R93.2 Abnormal findings on diagnostic imaging of liver and biliary tract (principal)
CPT/HCPCS: 74183; A9585

== ENCOUNTER → 2025-03-07 17:00 | Outpatient (BNV) | payer BC, SELFPAY | PROVIDERS: Visit Provider Radiology Diagnostic Radiology | DX: K76.0 Fatty (change of) liver, not elsewhere classified (principal) | CPT/HCPCS: 74183 ==

== ENCOUNTER → 2025-04-05 13:47 | Outpatient (REF) | payer BC, SELFPAY ==
--- NOTE | 2025-04-05 13:51 | CA_ITS ---
Transthoracic Echocardiogram Patient (Last, First, Middle): Ede Mcarthur R Gender: Male Date of : 1965 Age: 59 Procedure Date: 04/05/2025 Procedure Type: Transthoracic Echocardiogram Location: OP Height: 170. cm Weight: 96.62 kg BSA: 2.08 m2 Heart Rate: 70 bpm BP: 115 / 70 mmHg Plasterer Spot: NELLY/J LUIS Referring MD: Wally Tao MD Symptoms: Prechemo assessment Study Quality: Adequate. Limited per order ECG Rhythm: Sinus Conclusions: - The left ventricular systolic function is hyperdynamic. The visually estimated ejection fraction is >70%. Findings Left Ventricle Normal left ventricular cavity size. The left ventricular systolic function is hyperdynamic. The visually estimated ejection fraction is >70%. There is no evidence of regional wall motion abnormalities. There is mild septal asymmetric hypertrophy. LV peak GLS -25%. Venous The inferior vena cava is dilated and collapses greater than 50% with inspiration. Prior Study Comparison No significant change compared to prior study dated: 11/26/2024. Measurements 2D Linear Measurements IVSd: 1.03 0.6-0.9/0.6-1.0 cm LVIDd: 4.34 3.9-5.3/4.2-5.9 cm LVIDd Index: 2.09 2.4-3.2/2.2-3.1 cm/m2 LVIDs: 1.91 2.0-3.6 cm LVPWd: 0.97 0.7-1.1 cm LV Mass: 179.64 67-162/88-224 g LV Mass Index: 86.37 43-95/49-115 g/m2 LVOT Diam: 2.30 3.0+(-)1.3 cm 2D Systolic Function EF 4C: 74.50 >55% EF 2C: 69.40 >55% EF BiP: 71.20 >55% LVOT LVOT Pk Jin: 1.52 LVOT Mn Jin: 1.05 LVOT VTI: 0.30 LVOT Pk Grad: 9.00 LVOT Mn Grad: 5.00 LVOT Diam: 2.30 LVOT Area: 4.15 Updated in Other Vendor System with Status of Final Devon Vega MD electronically signed on 04/06/2025 1:18:43 PM with status of Final
--- OUTSIDE RECORDS SUMMARY | 2025-04-05 14:50 | XMS_ITS | Clinical Summary ---
Author Organization [facility] Address [address] [place] [address] Phone Care Team Providers Care School Occupational Therapist Name Role Phone Unavailable Primary Care Provider Unavailabl e Encounters Date Type Department Care Team Description 02/22/2025 7:27 AM EDT - 02/22/2025 11:59 PM EDT Hospital Encounter [facility] PET Scan [address] [place] [address] Non-Hodgkin lymphoma of spleen (CMS/HCC [...] Vaccine ( season) 2024 08/02/2021, 09/20/2020, 08/23/2020 Depression Screening 08/25/2024 Cholesterol Screening (Lipid Panel) 02/21/2025 Colorectal Cancer Screening: Colonoscopy 02/21/2025 HIV Screening 02/21/2025 Hepatitis C Screening [...] 9:48 AM EDT Non-Hodgkin lymphoma of spleen ([facility] V24, [facility] V28) from Last 3 Months Results * [...] Signed Date: 03/01/2025 06:59 ET Workstation ID: [id number] Transcribed By: Self Edit Transcribed Date: 03/01/2025 [...] Signed Date: 03/01/2025 06:59 ET Workstation ID: [id number] Transcribed By: Self Edit Transcribed Date: 03/01/2025 05:24 ET Timothy Tao MD IMG NM PROCEDURES Final Result from Last 3 Months Insurance [facility]
== END ==
LOC: HO.CARD 13:47
PROVIDERS: Visit Provider Internal Medicine Medical Oncology
DX: C85.90 Non-Hodgkin lymphoma, unspecified, unspecified site (principal)
CPT/HCPCS: 93308

== ENCOUNTER → 2025-04-05 13:51 | Outpatient (BNV) | payer BC, SELFPAY | PROVIDERS: Visit Provider Internal Medicine | DX: I51.89 Other ill-defined heart diseases (principal) | CPT/HCPCS: 93308; 93356 ==

== ENCOUNTER 2025-05-30 13:45 | Outpatient (AMB) | payer BC, SELFPAY ==
--- NOTE | 2025-05-30 13:45 | MHC.PC.OV ---
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 Required: No Allergies No Known Allergies (No Known Allergies*) Allergy (Verified 05/30/25 14:38) Medication List - Last Reconciled 05/30/25 by Daphne Neely PA-C albuterol sulfate 90 mcg/actuation 1 inh inhalation QID PRN azithromycin 250 mg PO DAILY azithromycin For 250 mg dose pack: take 500 mg today (day 1), then 250 mg for 4 days (days 2-5) PO codeine-guaifenesin 10-100 mg/5 mL 5 mL PO Q6H PRN lisinopril 10 mg PO DAILY loratadine 1 tab PO DAILY omeprazole 20 mg PO DAILY ondansetron 8 mg PO Q8H PRN pyridoxine (vitamin B6) 100 mg PO DAILY 90 days sulfamethoxazole-trimethoprim 800-160 mg (Bactrim DS) 1 tab PO DAILY valacyclovir (Valtrex) 500 mg PO BID Tobacco use date assessed: 05/30/25 Dental Screening Dental Screen Date: 01/04/25 HPI Cold HPI Details The patient is a 59-year-old male presenting with symptoms consistent with an upper respiratory tract infection. He reports experiencing similar symptoms as his brother, which were effectively treated with azithromycin (Z-Todd) and cough medicine containing codeine. The patient describes a persistent cough accompanied by wheezing, which has necessitated sleeping in an upright position to alleviate symptoms. He denies experiencing any chest pain and reports no current fever. The patient has a history of oncology follow-ups and is scheduled to see his oncologist, Dr. Tao, for a routine check-up. [facility] Medical History Non-Hodgkin lymphoma in adult Lymphoma Splenic mass HTN (hypertension) Surgical History Hx of colonoscopy (~11/24/15) Hx of tonsillectomy Hx of cystoscopy Family History Father Prostate cancer Social History Household Members: Spouse and Significant Other Housing: House Are you a primary laboratory animal caretaker to a significant other at home: No Do you presently have visiting nurse or other home services: No Alcohol intake: current Alcohol intake frequency: does not drink Patient Tobacco Use Status: Never used Tobacco service: No Current occupational status: employed 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 1. Little interest or pleasure in doing things: not at all 2. Feeling down, depressed, or hopeless: not at all 3. Trouble falling or staying asleep, or sleeping too much: not at all 4. Feeling tired or having little energy: not at all 5. Poor appetite or overeating: not at all 6. Feeling bad about yourself - or that you are a failure or have let yourself or your family down: not at all 7. Trouble concentrating on things, such as reading the newspaper or watching television: not at all 8. Moving or speaking so slowly that other people could have noticed. Or the opposite - being so fidgety or restless that you have been moving around a lot more than usual: not at all 9. Thoughts that you would be better off or of hurting yourself in some way: not at all Total score: 0 Depression Screening Interpretation: Negative Depression Screening Done: Yes 28812 - PHQ-9 Billing: Yes Source: Developed by Drs. Cortes Aiken, Stacey Thayer, Yahir Skaggs and colleagues, with an educational clay from [employer]. Thrive Questionnaire Date Thrive assessed: 01/04/25 I am a: Patient What is your living situation today?: I have a steady place to live Within the past 12 months, did the food you bought not last and you didn't have the money to get more?: Never true Within the past 12 months, did you worry whether your food would run out before you got money to buy more?: Never true Do you have trouble paying for medicines?: No Do you have trouble getting transportation to medical appointments?: No Do you have trouble paying your heating and electricity bill?: No Do you have trouble taking care of your child, family member or friend?: No Do you have trouble with day-to-day activities such as bathing, preparing meals, shopping, managing finances, etc.?: No Are you currently unemployed and looking for a job?: No Are you interested in more education?: No Please select the resources that you would like help with: None Currently or been in a relationship where the following occur: No concerns reported THRIVE Score: 0 AUDIT C Alcohol Use Questionnaire (AUDIT-C) 1. How often do you have a drink containing alcohol?: Never 3. How often do you have six or more drinks on one occasion?: Never Total Score: 0 Score Reviewed/Action Taken: No EVELIN-7 AMB Questionnaire EVELIN-7 Date EVELIN - 7 assessed: 01/04/25 Feeling nervous, anxious, or on edge: 0 = Not at all Not being able to stop or control worryin = Not at all Worrying too much about different things: 0 = Not at all Trouble relaxin = Not at all Being so restless that it is hard to sit still: 0 = Not at all Becoming easily annoyed or irritable: 0 = Not at all Feeling afraid as if something awful might happen: 0 = Not at all Total EVELIN-7 score (0-4 normal; 5-9 mild; 10-14 moderate; 15-21 severe): 0 Source: Developed by Drs. Cortes Aiken, Stacey Thayer, Yahir Skaggs and colleagues, with an educational clay from [employer]. EVELIN-7 Assessment Billing EVELIN-7 Assessment Tool: EVELIN-7 Assessment 01809 Review of Systems Const Details: - Respiratory: Reports cough and wheezing. Denies chest pain. All systems reviewed & are unremarkable except as noted in HPI and below Physical exam (Primary Care) Tobacco/Smoking Status: Tobacco use Status Tobacco use date assessed 05/30/25 05/30/25 13:47 Patient Tobacco Use Status Never used Tobacco 05/30/25 13:47 PHQ-9: PHQ-9 Score PHQ-9: Total score 0 05/30/25 13:47 Depression Screening Interpretation: Negative Thrive Assessment: Date of Thrive Assessment Date Thrive assessed 01/04/25 05/30/25 13:47 Currently or been in a relationship where the following occur: No concerns reported Telehealth Telehealth Telehealth Platform: Telephone Location of provider rendering services: practice address Location of patient: address on file Patient Identification confirmed using: Name, : Yes Telehealth method: voice only Patient verbally consented to treatment: Yes Patient verbally consented to billing insurance company: Yes Patient informed of any privacy concerns related to visit: Yes Minutes spent on Phone/Video with Pt.: 15 Coding Level of Care Code Tele Est Pt Level 4 (93236) Complex EM visit Add On G2211 Diagnoses URI (upper respiratory infection) J06.9 Additional Codes PHQ-9 - 18663 - PHQ-9 Billing: Yes ([id number]) EVELIN-7 Assessment Billing - EVELIN-7 Assessment Tool: EVELIN-7 Assessment 35066 ([id number]) Assessment & Plan Assessment & Plan (1) URI (upper respiratory infection): Code(s): J06.9 - Acute upper respiratory infection, unspecified Category: Medical Plan: The patient will be treated with azithromycin (Z-Todd) and cough medicine containing codeine, as these have been effective in the past. An albuterol inhaler will also be provided to manage wheezing symptoms. The patient is advised to monitor for any worsening symptoms such as fever or chest pain and to seek medical attention if these occur. Plan Plan Patient was informed and verbally consented to the use of an ambient scribe for clinic note documentation during this visit. 1. Upper Respiratory Tract Infection The patient will be treated with azithromycin (Z-Todd) and cough medicine containing codeine, as these have been effective in the past. An albuterol inhaler will also be provided to manage wheezing symptoms. The patient is advised to monitor for any worsening symptoms such as fever or chest pain and to seek medical attention if these occur. During the consultation, I discussed with the patient the treatment plan involving azithromycin, cough medicine with codeine, and an albuterol inhaler to manage his symptoms. I advised him to be vigilant for any worsening symptoms, such as fever or chest pain, and to contact us if these occur. Medications: New albuterol sulfate 90 mcg/actuation 1 inh inhalation QID PRN 6.7 grams 0RF shortness of breath or wheezing codeine-guaifenesin 10-100 mg/5 mL 5 mL PO Q6H PRN 120 mL 0RF cough azithromycin For 250 mg dose pack: take 500 mg today (day 1), then 250 mg for 4 days (days 2-5) PO 6 tabs 0RF Patient Instructions: - Take azithromycin (Z-Todd) as prescribed. - Use the albuterol inhaler as needed for wheezing. - Take cough medicine with codeine as directed. - Monitor for any worsening symptoms such as fever or chest pain and seek medical attention if these occur.
--- OUTSIDE RECORDS SUMMARY | 2025-05-30 16:12 | XMS_ITS | Clinical Summary ---
Author Organization [facility] Address [address] [facility] [address] [place] [phone] Phone Care Team Providers Care Type Photography Supervisor Name Role Phone Wally Tao MD Unavailable Akbar Tay MD Primary Care Provid er Allergies No known active allergies Medications allopurinol (ZYLOPRIM) 300 MG tablet Take 1 tablet by mouth every morning. 5 Active lisinopril (PRINIVIL,ZESTRIL) 10 MG tablet Take 10 mg by mouth daily. Active omeprazole (PRILOSEC OTC) 20 MG tablet 1 tablet 30 minutes before morning meal Orally Once a day for 30 day(s) Active ondansetron (ZOFRAN-ODT) 8 MG disintegrating tablet Take 8 mg by mouth every 8 (eight) hours as needed. 5 Active predniSONE (DELTASONE) 20 MG tablet Take 60 mg by mouth. 5 Active pyridoxine, vitamin B6, (B-6) 100 MG tablet Take 1 tablet by mouth every morning. 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 Not on luis e 12/28/2024 Are you concerned about learning? Not on file 12/28/2024 No 12/28/2024 No 12/28/2024 Digital Access Answer Date Recorded No 12/28/2024 No 12/28/2024 Reliable internet access at home? Not on file 12/28/2024 Device with a working camera? Not on file Sex and Gender Information Value Date Recorded Sex Assigned at Male 12/07/2024 3:51 PM EDT Legal Sex Male 9:42 PM EDT Gender Identity Male 12/07/2024 3:51 PM EDT Sexual Orientation Straight 12/07/2024 3: 51 PM EDT Last Filed Vital Signs Vital Sign Reading Time Taken Comments Blood Pressure 133/72 12/30/2024 1:50 PM EDT Pulse 51 12/30/2024 1:50 PM EDT Temperature 36.3 C (97.3 F) 12/30/2024 1:50 PM EDT Respiratory Rate 16 12/30/2024 1:50 PM EDT Oxygen Saturation 98% 12/30/2024 1:50 PM EDT Inhaled Oxygen Concentration - - Weight 98.2 kg (216 lb 6.4 oz) 12/30/2024 1:50 P M EDT Height 171 cm (5' 7.32 ) 12/30/2024 1:50 PM EDT Body Mass Index 33.57 12/30/2024 1:50 PM EDT Plan of Treatment Health Maintenance Due Date Last Done Comments CREATININE LEVEL 1964 LIPID PANEL 1964 POTASSIUM LEVEL 1964 DEPRESSION SCREENING 1976 HEPATITIS C SCREENING 1982 HIV ONE-TIME SCREENING (18-65 YEARS) 1982 PNEUMOCOCCAL VACCINES (50+ years) (1 of 2 - PCV) 1983 ZOSTER VACCINES (1 of 2) 1983 SCREENING FOR DIABETES 1999 COLOGUARD 2009 COLONOSCOPY 2009 COLORECTAL CANCER SCREENING 2009 FIT TEST 2009 FOBT 2009 SIGMOIDOSCOPY 2009 VIRTUAL COLONOSCOPY 2009 RSV VACCINE (1 - Risk 60-74 years 1-dose series) 2024 INFLUENZA VACCINE (#1) 2025 , 05/02/2020, 06/11/2019, Additional history exists COVID-19 VACCINE (4 - 2025-26 season) 2025 08/02/2021, 09/20/2020, 08/23/2020 Adult Td,Tdap Booster 08/11/2034 08/11/2024 SMOKING STATUS SCREENING (Once After 26 Yrs) Completed 12/30/2024 HEPATITIS A VACCINES Aged Out No long er eligible based on patient's age to complete this topic HIB VACCINES Aged Out No longer eligi ble based on patient's age to complete this topic MENINGOCOCCAL VACCINES (ACWY) Aged Out No longer eligible based on patient's age to complete this topic MENINGOCOCCAL VACCINES (B) Aged Out N o longer eligible based on patient's age to complete this topic Medical Devices Not on file [place] [address] [place] [address] [place] [address] [facility] Care Teams Type Photography Supervisor Relationship Specialty Start Date End Date Akbar Tay MD [address] [place] [phone] PCP - General 12/28/24 Wally Tao MD [address] [place] [phone] Referring Physician 12/07/24 Additional Source Comments The information contained in this document represents components of the legal health record. It is not the complete legal health record.[facility]
--- OUTSIDE RECORDS SUMMARY | 2025-05-30 16:12 | XMS_ITS | Clinical Summary ---
Author Organization [facility] Address [address] [place] [address] Phone Care Team Providers Care Blanket Folder Name Role Phone Unavailable Primary Care Provider Unavailabl e Encounters Date Type Department Care Team Description 04/20/2025 7:22 AM EDT - 04/20/2025 11:59 PM EDT Hospital Encounter PET Scan [address] [place] [address] Diffuse large B-cell lymphoma of spleen (CMS/HCC V24, CMS/HCC V28) [...] Health Maintenance Due Date Last Done Comments Colorectal Cancer Screening: Colonoscopy 1964 Pneumococcal Vaccine: 50+ Years (1 of 2 - PCV) 1983 Zoster Vaccines (1 of 2) 1983 Depression Screening 08/25/2024 Cholesterol Screening (Lipid Panel) 02/21/2025 HIV Screening 02/21/2025 Hepatitis C Screening 02/21/2025 Social Influencers of Health Screening 02/21/2025 COVID-19 Vaccine ( season) 2025 08/02/2021, 09/20/2020, 08/23/2020 Influenza Vaccine (#1) 2025 , 05/02/2020, 06/11/2019, [...] CT SKULL TO MID THIGH SUBSEQUENT Routine 04/20/2025 9:21 AM EDT Diffuse large B-cell lymphoma of spleen ([facility] V24, [facility] V28) from Last 3 Months Results * PET CT Skull to Mid Thigh Subsequent (04/20/2025 9:21 AM EDT) Anatomical Region Laterality Modality Body Radiographic Kely ging 04/20/2025 11:2 1 PM EDT Impressions 04/20/2025 11:31 PM EDT Impression: No hypermetabolic abnormality to suggest tumor activity. Incidental findings as above. -------- FINAL REPORT -------- Dictated By: Darleen Henley Dictated Date: 04/20/2025 23:21 ET Assigned Physician: Darleen Henley Reviewed and Electronically Signed By: Darleen Henley Signed Date: 04/20/2025 23:31 ET Workstation ID: [id number] Transcribed By: Self Edit Transcribed Date: 04/20/2025 23:21 ET Narrative 04/20/2025 11:[address] Scan CLINICAL HISTORY: B-CELL LYMPHOMA . Technique: The patient received an intravenous injection of fluorine 18 fluorodeoxyglucose. After a short delay a whole body PET scan was obtained from the skull base through midthighs. Additionally a low dose, unenhanced CT scan was acquired for attenuation correction and anatomic localization. The CT portion of the examination was done strictly for attenuation correction and is not a true diagnostic CT examination. Total DLP: 824 mGy/cm Blood glucose level in mg/dl: 123 FDG dose in mCi: 11.7 Comparison: 02/22/2025 Findings: Head and Neck: No hypermetabolic abnormality. Chest: No hypermetabolic abnormality. Coronary artery calcifications. Right chest wall port. Abdomen and Pelvis: No hypermetabolic abnormality to suggest tumor activity. Focal uptake in sigmoid colon in the region of prior diverticulitis with concern for developing colovesicular fistula with associated wall thickening of the bladder. Right renal cyst. Patchy uptake in the prostate, nonspecific, correlate with prostate-specific antigen. Musculoskeletal: No hypermetabolic abnormality. Stable diffuse low-level marrow uptake nonspecific. Procedure Note Darleen Henley MD - 04/20/[address] Scan CLINICAL HISTORY: B-CELL LYMPHOMA . Technique: The patient received an intravenous injection of fluorine 18fluorodeoxyglucose. After a short delay a whole body PET scan wasobtained from the skull base through midthighs. Additionally a low dose,unenhanced CT scan was acquired for attenuation correction and anatomiclocalization. The CT portion of the examination was done strictly forattenuation correction and is not a true diagnostic CT examination. TotalDLP: 824 mGy/cm Blood glucose level in mg/dl: 123 FDG dose in mCi: 11.7 Comparison: 02/22/2025 Findings: Head and Neck: No hypermetabolic abnormality. Chest: No hypermetabolic abnormality. Coronary artery calcifications.Right chest wall port. Abdomen and Pelvis: No hypermetabolic abnormality to suggest tumoractivity. Focal uptake in sigmoid colon in the region of priordiverticulitis with concern for developing colovesicular fistula withassociated wall thickening of the bladder. Right renal cyst. Patchyuptake in the prostate, nonspecific, correlate with prostate-specificantigen. Musculoskeletal: No hypermetabolic abnormality. Stable diffuse low-levelmarrow uptake nonspecific. IMPRESSION: Impression: No hypermetabolic abnormality to suggest tumor activity. Incidental findings as above. -------- FINAL REPORT -------- Dictated By: Darleen Henley Dictated Date: 04/20/2025 23:21 ET Assigned Physician: Darleen Henley Reviewed and Electronically Signed By: Darleen Henley Signed Date: 04/20/2025 23:31 ET Workstation ID: [id number] Transcribed By: Self Edit Transcribed Date: 04/20/2025 23:21 ET Timothy Tao MD IMG NM PROCEDURES Final Result from Last 3 Months Insurance [facility]
== END 2025-05-30 13:54 | disposition home or self-care (01) ==
LOC: HO.HMCSH 13:45
PROVIDERS: PCP Physician Assistant Medical; Visit Provider Physician Assistant Medical
DX: J06.9 Acute upper respiratory infection, unspecified (principal)

== ENCOUNTER → 2025-05-30 13:45 | Outpatient (BNVA) | payer BC, SELFPAY | PROVIDERS: PCP Physician Assistant Medical; Visit Provider Physician Assistant Medical | DX: J06.9 Acute upper respiratory infection, unspecified (principal) | CPT/HCPCS: 96127 ==

== ENCOUNTER 2025-07-29 13:45 | Outpatient (REF) | payer BC, SELFPAY ==
--- NOTE | ~2025-07-29 | CT_ITS ---
EXAMINATION: CT CHEST WITH CONTRAST CLINICAL INFORMATION: 12/06/2024 COMPARISON: 12/06/2024 TECHNIQUE: Multidetector volumetric CT imaging of the chest was obtained after the administration of 85 mL of Omnipaque 350 intravenous contrast without immediate adverse reactions. Axial MIP B-cell lymphoma follow-up volume rendering provided. Sagittal and coronal reformatted images were obtained. This CT examination was performed using dose optimization techniques as appropriate, variously including the following: *Automated exposure control *Adjustment of mA and/or kV according to patient size (this includes techniques or standardized protocols for targeted exams where dose is matched to indication/reason for exam; i.e. extremities or head) *Use of iterative reconstruction technique FINDINGS: LUNGS: Again seen is a nodule along the mid left major fissure. It has a triangular morphology and does not distort fissure and is consistent with intrapulmonary lymph node requiring no further follow-up. Lungs are otherwise clear. MEDIASTINUM: Unremarkable PLEURA: There is no pleural effusion. No pleural mass or thickening. AXILLA: No lymphadenopathy. There is a port in the anterior right upper chest. UPPER ABDOMEN: See same day CT abdomen and pelvis OSSEOUS STRUCTURES: Unremarkable. CT/CT chest w IV con IMPRESSION: Unremarkable examination. No evidence of recurrent disease. Electronically signed by: Alexys You MD 07/29/2025 05:32 PM EST
--- NOTE | ~2025-07-29 | CT_ITS ---
EXAMINATION: CT ABDOMEN AND PELVIS WITH CONTRAST CLINICAL INFORMATION: Follow-up diffuse B-cell lymphoma COMPARISON: 08/16/2024 TECHNIQUE: Multidetector volumetric images were obtained from the superior aspect of the liver through the pubic symphysis following administration 85 mL of Omnipaque 350 intravenous contrast. Sagittal and coronal reformatted images were obtained on the technologist's workstation. Oral contrast: No This CT examination was performed using dose optimization techniques as appropriate, variously including the following: *Automated exposure control *Adjustment of mA and/or kV according to patient size (this includes techniques or standardized protocols for targeted exams where dose is matched to indication/reason for exam; i.e. extremities or head) *Use of iterative reconstruction technique FINDINGS: LUNG BASES: See same day CT chest LIVER, GALLBLADDER, AND BILIARY TREE: The liver is normal in size, shape, and attenuation. No focal hepatic lesion or biliary ductal dilatation is present. The gallbladder is unremarkable with no evidence of radiopaque gallstones, gallbladder wall thickening, or obvious pericholecystic inflammatory changes. PANCREAS: Unremarkable. SPLEEN: Again seen is a 9 mm hypodensity in the inferior spleen that has been biopsied. On prior CT it measured 4.4 cm. ADRENAL GLANDS: Unremarkable. KIDNEYS AND URETERS: Again seen are simple renal cysts bilaterally. 4 x 5 mm stone remains present in the lower pole left kidney. BLADDER: Unremarkable. GASTROINTESTINAL TRACT: Again seen are changes of diverticulosis in the descending and sigmoid colon, as well as in the right colon and proximal transverse colon. The appendix is unremarkable. ABDOMINAL WALL: Again seen is small umbilical hernia. LYMPH NODES: No adenopathy. VASCULAR: Minimal atherosclerotic ossifications. PELVIC VISCERA: Unremarkable. OSSEOUS STRUCTURES: Mild degenerative changes are present in the lumbar spine. L5-S1, there is moderate facet arthropathy with mild grade [address]/CT abdomen pelvis w IV con IMPRESSION: Inferior splenic lesion has decreased in size from 4.4 cm, now 0.9 cm. Diverticulosis. Nephrolithiasis: 4 x 5 mm nonobstructing stone is stable in the lower pole left kidney. Fleischner guidelines were followed. Electronically signed by: Alexys You MD 07/29/2025 05:39 PM [facility]
[2025-07-29] MEDS: iohexoL 350 MG/ML 100 ML INFUS..BTL IV (17:22)
--- OUTSIDE RECORDS SUMMARY | 2025-07-29 17:59 | XMS_ITS | Clinical Summary ---
Author Organization [facility] Address [address] [place] [address] Phone Care Team Providers Care Light Adjuster Name Role Phone Unavailable Primary Care Provider Unavailabl e Social History Tobacco Use Types Packs/Day Years [...] Influencers of Health Screening 02/21/2025 COVID-19 Vaccine (2024- season) 2025 08/02/2021, 09/20/2020, 08/23/2020 Influenza Vaccine [...] on patient's age to complete this topic Insurance [facility]
--- OUTSIDE RECORDS SUMMARY | 2025-07-29 17:59 | XMS_ITS | Clinical Summary ---
Author Organization [facility] Address [address] [facility] [address] [place] [phone] Phone Care Team Providers Care Wind Turbine Sheet Metal Worker Name Role Phone Wally Tao MD Unavailable [...] FOBT 2009 SIGMOIDOSCOPY 2009 VIRTUAL COLONOSCOPY 2009 INFLUENZA VACCINE (#1) 2025 , 05/02/2020, 06/11/2019, Additional history exists COVID-19 VACCINE ( season) 2025 08/02/2021, 09/20/2020, 08/23/2020 Adult Td,Tdap Booster 08/11/2034 08/11/2024 RSV VACCINE (1 - 1-dose 75+ series) 2039 SMOKING STATUS SCREENING (Once After 26 Yrs) [...] topic Medical Devices Not on file [place] [address] [place] [address] [place] [address] [facility] Care Teams Wind Turbine Sheet Metal Worker Relationship Specialty Start Date End Date Akbar Tay MD [address] [place] [phone] PCP - General 12/28/24 Wally Tao MD [address] [place] [phone] Referring Physician 12/07/24 Additional Source Comments The information contained in this document represents components of the legal health record. It is not the complete legal health record.[facility]
== END 2025-07-29 13:46 | disposition home or self-care (01) ==
LOC: HO.CT 13:45
PROVIDERS: PCP Internal Medicine; Visit Provider Internal Medicine Medical Oncology
DX: C83.30 Diffuse large B-cell lymphoma, unspecified site (principal)
CPT/HCPCS: 71260; 74177; Q9967

== ENCOUNTER → 2025-07-29 13:48 | Outpatient (BNV) | payer BC, SELFPAY | PROVIDERS: PCP Internal Medicine; Visit Provider Radiology Diagnostic Radiology | DX: K57.30 Diverticulosis of large intestine without perforation or abscess without bleeding (principal); N20.0 Calculus of kidney; C85.10 Unspecified B-cell lymphoma, unspecified site | CPT/HCPCS: 71260; 74177 ==